=== PATIENT | female | born 2000 | race African-American/Black ===

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

== ENCOUNTER 2021-01-23 16:17 | Emergency (ER) | payer OTHER, SELFPAY ==
--- OUTSIDE RECORDS SUMMARY | 2021-01-23 16:19 | XMS REPORT | Continuity of Care Document ---
:2000 Author Organization [facility] t Address [address] [place] [address] Care Team Providers Name Role Phone Ann Arias Attending Clinician Problems This patient has no known problems. Allergies, Adverse Reactions, Alerts This patient has no known allergies or adverse reactions. Medications This patient has no known medications. Procedures This patient has no known procedures. Encounters Start End Encounter Admission Attending Care Care Encounter Source Date/Time Date/Time Type Type Clinicians Facility Department ID 2019-05-12 2019-05-12 Emergency [facility] Monge [id number] 15:30:32 18:09:00 [facility] [id number] [place] [id number] [place] [id number] Results This patient has no known results.
[2021-01-23 20:50] LABS: Urine Blood 3+ (Negative); Urine Glucose Negative (Negative); Urine Protein Trace (Negative); Urine Specific Gravity >=1.030 (1.005-1.030)
[2021-01-23] MEDS ORDERED: NITROFURAN MACRO 100 MG CAP PO ONE (21:30)
[2021-01-23 21:34] LABS: Absolute Lymphocytes (CBC) 2.6 K/uL (0.7-4.9); Basophils % 0.5 % (0-1.3); Hematocrit 34.1 % (36.0-45.0); Lymphocytes % 37.6 % (15.3-44.8); MPV 8.4 fL (7.6-11.3); RBC Red Blood Cell Count 4.15 M/uL (3.86-4.86)
[2021-01-23 21:49] LABS: Urine Specific Gravity/Preg >1.030 (1.005-1.030)
[2021-01-23 21:51] LABS: BUN Blood Urea Nitrogen 8 mg/dL (7-18); Bicarbonate 25 mmol/L (21-32); Glucose Level 89 mg/dL (74-106); HCG, Quantitative 870 mIU/mL (1-3); Potassium 3.6 mmol/L (3.5-5.1); Sodium Level 138 mmol/L (136-145)
--- NOTE | 2021-01-23 21:57 | ER ---
Nurse's Notes [facility] Name: Drea Lopez Age: 20 yrs Sex: Female : 2000 Arrival Date: 01/23/2021 Time: 16:21 Bed 23 Private MD: Diagnosis: Urinary tract infection, site not specified;Encounter for test, result positive Presentation: 01/23 16:32 Chief complaint: Patient states: Abd pain with nausea off/on for 2 weeks. Period is ll1 late 2 weeks, states she hasn't taken any tests yet. No fever or cough. G1, P1. Coronavirus screen: Client denies travel out of the [place] in the last 14 days. nausea, At this time, the client does not indicate any symptoms associated with coronavirus-19. Ebola Screen: Patient denies travel to an Ebola-affected area in the 21 days before illness onset. Initial Sepsis Screen: Does the patient meet any 2 criteria? No. Patient's initial sepsis screen is negative. Does the patient have a suspected source of infection? Yes: Acute abdominal pain. Risk Assessment: Do you want to hurt yourself or someone else? Patient reports no desire to harm self or others. Onset of symptoms was January 10, 2021. 16:32 Method Of Arrival: Ambulatory ll1 16:32 Acuity: MERLY 3 ll1 PCT: 21:26 2, Living 1, LMP 12/12/2020, Verified, EDC 09/18/2021, Gestational age bb from LMP: 6 weeks 1 day Historical: - Allergies: 16:33 No Known Allergies; ll1 - PMHx: 16:33 None; ll1 - PSHx: 16:33 None; ll1 - Immunization history:: Client reports having NOT received the Covid vaccine. Flu vaccine is not up to date. - Social history:: Smoking status: Patient denies any tobacco usage or history of. - Family history:: not pertinent. - Hospitalizations: : No recent hospitalization is reported. Screenin:00 Abuse screen: Denies threats or abuse. Nutritional screening: No deficits noted. bb Tuberculosis screening: No symptoms or risk factors identified. Fall Risk None identified. Assessment: 20:00 General: Appears in no apparent distress. Behavior is calm, cooperative. Pain: bb Complains of pain in abdomen. Neuro: Level of Consciousness is awake, alert, obeys commands, Oriented to person, place, time, situation. Cardiovascular: No deficits noted. Respiratory: Airway is patent Respiratory effort is even, unlabored, Respiratory pattern is regular. GI: Bowel sounds present X 4 quads. Abd is soft X 4 quads. Derm: Skin is dry, Skin is normal, Skin temperature is warm. Musculoskeletal: Circulation, motion, and sensation intact. 21:27 Reassessment: Patient and/or family updated on plan of care and expected duration. Pain bb level reassessed. Patient is alert, oriented x 3, equal unlabored respirations, skin warm/dry/pink. US tech at bedside. 22:17 Reassessment: Patient and/or family updated on plan of care and expected duration. Pain bb level reassessed. Patient is alert, oriented x 3, equal unlabored respirations, skin warm/dry/pink. pt verbalized understanding of and agrees to plan of care discharge instructions given pt ambulated with steady gait to exit. Vital Signs: 16:32 BP 133 / 79; Pulse 80; Resp 16; Temp 97.4; Pulse Ox 100% ; Weight 76.2 kg; Height 5 ft. ll1 2 in. (157.48 cm); Pain 4/10; 20:00 BP 108 / 75; Pulse 62; Resp 16; Pulse Ox 100% on R/A; oe 21:27 BP 138 / 56; Pulse 79; Resp 18 S; Pulse Ox 100% on R/A; Pain 4/10; bb 22:18 BP 117 / 82; Pulse 73; Resp 16 S; Temp 98.4(O); Pulse Ox 99% on R/A; bb 16:32 Body Mass Index 30.73 (76.20 kg, 157.48 cm) ll1 ED Course: 16:21 Patient arrived in ED. ds1 16:33 Triage completed. ll1 16:33 Arm band placed on. ll1 19:40 Adam Pritchard MD is Attending Physician. rn 20:00 Patient has correct armband on for positive identification. Call light in reach. bb 20:30 Urine collected: clean catch specimen, clear, florentin colored. jp3 21:16 Initial lab(s) drawn, by me, sent to lab. T\T\S collected, blood band applied to patient. jp3 Inserted saline lock: 20 gauge in left antecubital area, using aseptic technique. Blood collected. 21:44 Transvaginal Study Probe In Process Unspecified. EDMS 22:17 No provider procedures requiring assistance completed. IV discontinued, intact, bb bleeding controlled, No redness/swelling at site. Pressure dressing applied. Administered Medications: 21:12 Drug: Macrobid 100 mg Route: PO; bb 22:00 Follow up: Response: No adverse reaction bb Outcome: 21:56 Discharge ordered by . rn 22:17 Condition: stable bb 22:17 Discharge instructions given to patient, Instructed on discharge instructions, follow up and referral plans. Demonstrated understanding of instructions, follow-up care, Prescriptions given X 1. 22:18 Discharged to home ambulatory. bb 22:19 Patient left the ED. bb Addendum: 01/27/2021 07:29 Addendum: Culture Results: Positive urine culture. No further action required. Bacteria e b sensitive to prescribed antibiotic. Signatures: Dispatcher [employer] EDOR Era Suh ds1 Paty Elias RN RN Adam Schulte MD MD rn Espinosa, Orlando oe Botello, Elizabeth eb Pisarski, Jacob jp3 Soheila Givens RN RN ll1 Corrections: (The following items were deleted from the chart) 04 16:35 16:32 Chief complaint: Patient states: Abd pain with nausea off/on for 2 weeks. Period ll1 is late 2 weeks. No fever or cough. ll1 22:18 22:16 Reassessment: Patient is alert, oriented x 3, equal unlabored respirations, skin bb warm/dry/pink. pt verbalized understanding of and agrees to plan of care discharge instructions given pt assisted to exit via his wheelchair by family bb 22:17 Discharged to home via wheelchair, with family, bb bb :18 22:17 Discharge instructions given to patient, Instructed on discharge instructions, bb follow up and referral plans. Demonstrated understanding of instructions, follow-up care, bb
--- NOTE | 2021-01-23 21:57 | EDPHYS ---
Physician Documentation [facility] Name: Drea Lopez Age: 20 yrs Sex: Female : 2000 Arrival Date: 01/23/2021 Time: 16:21 Bed 23 Private MD: ED Physician Adam Pritchard HPI: 01/23 20:05 This 20 yrs old Black Female presents to ER via Ambulatory with complaints of Abdominal rn Pain. 20:05 The patient presents with abdominal pain in the lower abdomen. Onset: The rn symptoms/episode began/occurred 1 week(s) ago. The symptoms do not radiate. Associated signs and symptoms: Pertinent negatives: anorexia, blood in stools, constipation, diarrhea, dysuria, fever, shortness of breath, vaginal discharge, vomiting, vomiting blood. The symptoms are described as crampy. Modifying factors: The symptoms are alleviated by nothing, the symptoms are aggravated by nothing. Severity of pain: At its worst the pain was mild in the emergency department the pain is unchanged. The patient has not experienced similar symptoms in the past. The patient has not recently seen a physician. Reports 1 week of lower abd pain, no fever/vomiting/diarrhea, no trauma, reports LMP 15 days ago. NO vaginal discharge or bleeding. Instead of taking UPT at home, mother told her to come here. 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 Flu vaccine is not up to date. - Social history:: Smoking status: Patient denies any tobacco usage or history of. - Family history:: not pertinent. - Hospitalizations: : No recent hospitalization is reported. ROS: 20:05 Constitutional: Negative for fever, chills, and weight loss, Eyes: Negative for injury, rn pain, redness, and discharge, Neck: Negative for injury, pain, and swelling, Cardiovascular: Negative for chest pain, palpitations, and edema, Respiratory: Negative for shortness of breath, cough, wheezing, and pleuritic chest pain, Abdomen/GI: + lower abd pain Back: Negative for injury and pain, : Negative for injury, bleeding, discharge, and swelling, MS/Extremity: Negative for injury and deformity, Skin: Negative for injury, rash, and discoloration, Neuro: Negative for headache, weakness, numbness, tingling, and seizure. Exam: 20:05 Constitutional: This is a well developed, well nourished patient who is awake, alert, rn and in no acute distress. Texting on phone and laying comfortably on right side. Head/Face: Normocephalic, atraumatic. Eyes: Pupils equal round and reactive to light, extra-ocular motions intact. Cardiovascular: Regular rate and rhythm. No pulse deficits. Respiratory: No increased work of breathing, no retractions or nasal flaring. Abdomen/GI: soft, non-tender Skin: Warm, dry MS/ Extremity: Pulses equal, no cyanosis. Neuro: Awake and alert, GCS 15 Vital Signs: 16:32 BP 133 / 79; Pulse 80; Resp 16; Temp 97.4; Pulse Ox 100% ; Weight 76.2 kg; Height 5 ft. ll1 2 in. (157.48 cm); Pain 4/10; 20:00 BP 108 / 75; Pulse 62; Resp 16; Pulse Ox 100% on R/A; oe 21:27 BP 138 / 56; Pulse 79; Resp 18 S; Pulse Ox 100% on R/A; Pain 4/10; bb 22:18 BP 117 / 82; Pulse 73; Resp 16 S; Temp 98.4(O); Pulse Ox 99% on R/A; bb 16:32 Body Mass Index 30.73 (76.20 kg, 157.48 cm) ll1 MDM: 19:40 Patient medically screened. rn 21:54 Differential diagnosis: Ectopic , , UTI. Data reviewed: vital signs, rn nurses notes, lab test result(s), radiologic studies, ultrasound, and as a result, I will discharge patient. Counseling: I had a detailed discussion with the patient and/or guardian regarding: the historical points, exam findings, and any diagnostic results supporting the discharge/admit diagnosis, lab results, radiology results, the need for outpatient follow up, to return to the emergency department if symptoms worsen or persist or if there are any questions or concerns that arise at home. Response to treatment: the patient's symptoms have mildly improved after treatment, and as a result, I will discharge patient. Special discussion: I discussed with the patient/guardian in detail that at this point there is no indication for admission to the hospital. It is understood, however, that if the symptoms persist or worsen the patient needs to return immediately for re-evaluation. Based on the history and exam findings, there is no indication for further emergent testing or inpatient evaluation. I discussed with the patient/guardian the need to see the OB Gyne specialist for further evaluation of the symptoms. ED course: U/S shows intrauterine gestational sac, no abnormalities, but very early, no sign of ectopic, + UTI, will dc home given no vaginal bleeding or complaints to suggest . . 01/23 20:50 Order name: Quantitative Hcg; Complete Time: 21:54 rn 01/23 20:50 Order name: Abo/rh Typing 01/23 20:50 Order name: Basic Metabolic Panel; Complete Time: 21:54 rn 01/23 20:50 Order name: CBC with Diff; Complete Time: 21:54 rn 01/23 20:50 Order name: Urine Culture 01/23 20:50 Order name: Urine Dipstick-Ancillary EDMS 01/23 16:50 Order name: Urine Dipstick-Ancillary (obtain specimen); Complete Time: 21:13 kb 01/23 16:50 Order name: Urine Test (obtain specimen); Complete Time: 21:13 kb 01/23 20:50 Order name: IV Saline Lock; Complete Time: 21:13 rn 01/23 20:50 Order name: Labs collected and sent; Complete Time: 21:13 rn 01/23 20:53 Order name: Urine --Ancillary (enter results); Complete Time: 21:54 bb 01/23 21:43 Order name: Transvaginal Study Probe EDMS Administered Medications: 21:12 Drug: Macrobid 100 mg Route: PO; bb 22:00 Follow up: Response: No adverse reaction bb Disposition: 01/23/21 21:56 Discharged to Home. Impression: Urinary tract infection, site not specified, Encounter for test, result positive. - Condition is Stable. - Discharge Instructions: Urinary Tract Infection, Adult, and Urinary Tract Infection. - Prescriptions for Macrobid 100 mg Oral Capsule - take 1 capsule by ORAL route every 12 hours for 7 days; 14 capsule. - Medication Reconciliation Form, Thank You Letter, Antibiotic Education, Prescription Opioid Use form. - Follow up: Private Physician; When: As needed; Reason: Recheck today's complaints, Re-evaluation by your physician. - Problem is new. - Symptoms have improved. Signatures: Dispatcher [employer] [facility] Dalia Strange, PARCEL CARRIER-C PARCEL CARRIER-Paty Serrano RN RN Adam Schulte MD MD rn Lewis, Lynsay, RN RN ll1 Corrections: (The following items were deleted from the chart) 21:43 20:51 OB Limited+US.RAD.BRZ ordered. [facility] 22:19 21:56 01/23/2021 21:56 Discharged to Home. Impression: Urinary tract infection, site bb not specified; Encounter for test, result positive. Condition is Stable. Forms are Medication Reconciliation Form, Thank You Letter, Antibiotic Education, Prescription Opioid Use. Follow up: Private Physician; When: As needed; Reason: Recheck today's complaints, Re-evaluation by your physician. Problem is new. Symptoms have improved. rn
[2021-01-23 22:56] VITALS: BP 117/82; TEMP 98.4; O2SAT 99
--- NOTE | 2021-01-24 09:32 | RAD REPORT ---
EXAM DESCRIPTION: US - Transvaginal Study Probe - 01/23/2021 9:44 pm CLINICAL HISTORY: ABD CRAMPING, Pelvic pain. COMPARISON: No comparisons FINDINGS: A small cystic areas seen in the endometrium measuring 4 mm in mean sac diameter. Estimate d gestational age is 5 weeks 1 day. No embryonic components yet identified at this early stage. Left ovary was obscured by bowel gas. Right ovary demonstrates normal blood flow is normal in appeara nce. Both adnexa are unremarkable. IMPRESSION: Findings likely indicate early IUP.Recommend correlation with serial HCG levels and foll ow-up pelvic sonography in 10-12 days.
== END 2021-01-23 22:19 | disposition home or self-care (01) ==
LOC: ER 16:17
DX: N39.0 Urinary tract infection, site not specified (principal)
CPT/HCPCS: 36415; 76830; 80048; 81003; 81025; 84702; 85025; 86900; 86901; 87077; 87086; 87088; 87186; 99284

== ENCOUNTER 2021-01-24 09:39 | Emergency (ER) | payer SELFPAY ==
--- OUTSIDE RECORDS SUMMARY | 2021-01-24 09:42 | XMS REPORT | Continuity of Care Document ---
:2000 Author Organization [facility] t Address [address] [place] [address] Care Team Providers Name Role Phone Ann [...] 2019-05-12 2019-05-12 Emergency NAPOLEON Monge [id number] 15:30:32 18:09:00 [facility] [id number] [place] [id number] [place] [phone] [id number] Results This patient has no known results.
--- NOTE | 2021-01-24 11:01 | ER ---
Nurse's Notes [facility] Name: Drea Lopez Age: 20 yrs Sex: Female : 2000 Arrival Date: 01/24/2021 Time: 09:42 Bed 23 Private MD: Diagnosis: Threatened ;Less than 8 weeks gestation of Presentation: 01/24 10:04 Chief complaint: Patient states: "Yesterday I was here and found out I was and ss today I started having vaginal bleeding.". Coronavirus screen: Client denies travel out of the [place] in the last 14 days. Ebola Screen: Patient denies exposure to infectious person. Patient denies travel to an Ebola-affected area in the 21 days before illness onset. Initial Sepsis Screen: Does the patient meet any 2 criteria? No. Patient's initial sepsis screen is negative. Does the patient have a suspected source of infection? No. Patient's initial sepsis screen is negative. Risk Assessment: Do you want to hurt yourself or someone else? Patient reports no desire to harm self or others. Onset of symptoms was January 24, 2021. 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 - Social history:: Smoking status: Patient denies any tobacco usage or history of. Screenin:04 Abuse screen: Denies threats or abuse. Denies injuries from another. Nutritional ss screening: No deficits noted. Tuberculosis screening: Never had TB. Fall Risk None identified. Assessment: 10:04 General: Appears in no apparent distress. comfortable, Behavior is calm, cooperative, ss Denies fever, feeling ill, fatigue, chills. Pain: Complains of pain in suprapubic area Pain currently is 6 out of 10 on a pain scale. Quality of pain is described as crampy. Neuro: Level of Consciousness is awake, alert, obeys commands, Oriented to person, place, time, Appropriate for age Gait is steady, Speech is normal. Cardiovascular: Capillary refill < 3 seconds is brisk in bilateral fingers. Respiratory: Airway is patent Respiratory effort is even, unlabored, Respiratory pattern is regular, symmetrical. GI: Patient currently denies diarrhea, nausea, vomiting. : Reports vaginal bleeding that is moderate flow, since this morning. Derm: Skin is intact, is healthy with good turgor, Skin is pink, warm \\T\\ dry. normal. Vital Signs: 10:04 BP 116 / 78; Pulse 83; Resp 14; Temp 99.1(TE); Pulse Ox 99% on R/A; Weight 76.2 kg; ss Height 5 ft. 2 in. (157.48 cm); Pain 6/10; 10:04 Body Mass Index 30.73 (76.20 kg, 157.48 cm) ss ED Course: 09:42 Patient arrived in ED. ds1 10:04 Patient has correct armband on for positive identification. Bed in low position. Call ss light in reach. 10:06 Triage completed. ss 10:06 Arm band placed on right wrist. ss 10:15 Dalia Strange FNP-C is PHCP. kb 10:15 Juan Francisco Hernandez MD is Attending Physician. kb 10:43 US Transvaginal Ob In Process Unspecified. EDMS 10:45 Ultrasound completed. Patient tolerated well. aa4 11:11 Henrietta Torres, TOAN is Primary Nurse. ss 11:11 No provider procedures requiring assistance completed. Patient did not have IV access ss during this emergency room visit. Administered Medications: No medications were administered Outcome: 11:00 Discharge ordered by MD. kb 11:11 Discharged to home ambulatory. ss 11:11 Condition: good 11:11 Discharge instructions given to patient, Instructed on discharge instructions, follow up and referral plans. medication usage, Demonstrated understanding of instructions, follow-up care, medications. 11:14 Patient left the ED. ss Signatures: Dispatcher [employer] EDMS Dalia Strange FNP-C FNP-Ckb [place], Demi ds1 Gladys Donohue aa4 Henrietta Torres, TOAN RN ss
--- NOTE | 2021-01-24 11:01 | EDPHYS ---
Physician Documentation [facility] Name: Drea Lopez Age: 20 yrs Sex: Female : 2000 Arrival Date: 01/24/2021 Time: 09:42 Bed 23 Private MD: ED Physician Juan Francisco Hernandez HPI: 01/24 16:00 This 20 yrs old Black Female presents to ER via Ambulatory with complaints of Vaginal kb Bleeding, + Preg <12wks. 16:00 The patient presents to the emergency department with abdominal pain, described as kb crampy, vaginal bleeding, that is light, with no clots. course: care: none, Leakage of Fluid: none appreciated, Ultrasound: the patient has not had an ultrasound. Previous pregnancies: in previous pregnancies patient has had. Associated signs and symptoms: Pertinent positives: vaginal bleeding. The patient has not experienced similar symptoms in the past. The patient has not recently seen a physician. Pt reports she was seen here last night and found out she was . Had an episode of light vaginal bleeding while at work today. 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 - Social history:: Smoking status: Patient denies any tobacco usage or history of. ROS: 15:59 Constitutional: Negative for fever, chills, and weight loss, Cardiovascular: Negative kb for chest pain, palpitations, and edema, Respiratory: Negative for shortness of breath, cough, wheezing, and pleuritic chest pain, MS/Extremity: Negative for injury and deformity, Skin: Negative for injury, rash, and discoloration, Neuro: Negative for headache, weakness, numbness, tingling, and seizure. 15:59 Abdomen/GI: Positive for abdominal cramps. 15:59 : Positive for vaginal bleeding. Exam: 15:59 Constitutional: This is a well developed, well nourished patient who is awake, alert, kb and in no acute distress. Head/Face: Normocephalic, atraumatic. Respiratory: Respirations even and unlabored. No increased work of breathing, no retractions or nasal flaring. Abdomen/GI: Soft, non-tender. No distention MS/ Extremity: Pulses equal, no cyanosis. Neurovascular intact. Full, normal range of motion. Neuro: Awake and alert, GCS 15, oriented to person, place, time, and situation. Moves all extremities. Normal gait. Vital Signs: 10:04 BP 116 / 78; Pulse 83; Resp 14; Temp 99.1(TE); Pulse Ox 99% on R/A; Weight 76.2 kg; ss Height 5 ft. 2 in. (157.48 cm); Pain 6/10; 10:04 Body Mass Index 30.73 (76.20 kg, 157.48 cm) ss MDM: 10:50 Patient medically screened. kb 15:58 Data reviewed: vital signs, nurses notes. Data reviewed: old medical records, labs from kb ER visit yesterday reviewed. Data interpreted: Pulse oximetry: on room air is 99 %. Interpretation: normal. Counseling: I had a detailed discussion with the patient and/or guardian regarding: the historical points, exam findings, and any diagnostic results supporting the discharge/admit diagnosis, radiology results, the need for outpatient follow up, an OB/Gyne specialist, to return to the emergency department if symptoms worsen or persist or if there are any questions or concerns that arise at home. 01/24 10:15 Order name: Transvaginal Ob devon Administered Medications: No medications were administered Disposition: 01/25 06:53 Co-signature as Attending Physician, Juan Francisco Hernandez MD I agree with the assessment and kdr plan of care. Disposition: 01/24/21 11:00 Discharged to Home. Impression: Threatened , Less than 8 weeks gestation of . - Condition is Stable. - Discharge Instructions: First Trimester of , [id number], Threatened Miscarriage, [id number], Vaginal Bleeding During , First Trimester, [id number]. - Medication Reconciliation Form, Thank You Letter, Antibiotic Education, Prescription Opioid Use, Work release form form. - Follow up: Private Physician; When: 2 - 3 days; Reason: Recheck today's complaints, Continuance of care, Re-evaluation by your physician. Follow up: Emergency Department; When: As needed; Reason: Worsening of condition. Signatures: Dispatcher [employer] Rojelio Casarezistin, CUBE CUTTER-C CUBE CUTTER-Ckb Juan Francisco Hernandez MD MD kdr Henrietta Torres RN RN ss Corrections: (The following items were deleted from the chart) 01/24 11:14 11:00 01/24/2021 11:00 Discharged to Home. Impression: Threatened ; Less than 8 ss weeks gestation of . Condition is Stable. Forms are Medication Reconciliation Form, Thank You Letter, Antibiotic Education, Prescription Opioid Use. Follow up: Private Physician; When: 2 - 3 days; Reason: Recheck today's complaints, Continuance of care, Re-evaluation by your physician. Follow up: Emergency Department; When: As needed; Reason: Worsening of condition. kb
--- NOTE | 2021-01-24 11:16 | RAD REPORT ---
EXAM DESCRIPTION: US - Transvaginal OB - 01/24/2021 10:48 am CLINICAL HISTORY: VAGINAL BLEEDING Pain and bleeding COMPARISON: Transvaginal Study Probe dated 01/23/2021 FINDINGS: A small cystic area is present in the endometrial canal measuring 4 mm, correlating with g estational age of 5 weeks 0 days. No embryonic components are yet visible. The maternal adnexa and ovaries are within normal limits. Normal Doppler blood flow was demonstrated to both ovaries. IMPRESSION: Small cystic area in the endometrium is seen. This likely represents an early gestationa l sac with estimated gestational age of 5 weeks 0 days. Recommend follow-up serial HCG levels and fol low-up ultrasound in 12-14 days.
[2021-01-24 11:22] VITALS: BP 116/78; TEMP 99.1; O2SAT 99
== END 2021-01-24 11:14 | disposition home or self-care (01) ==
LOC: ER 09:39
DX: O20.0 Threatened abortion (principal); Z3A.01 Less than 8 weeks gestation of pregnancy
CPT/HCPCS: 76817; 99283

== ENCOUNTER 2021-06-13 16:59 | Emergency (ER) | payer SELFPAY ==
--- OUTSIDE RECORDS SUMMARY | 2021-06-13 17:02 | XMS REPORT | Continuity of Care Document ---
:2000 Author Organization [facility] t Address [address] [place] [address] Care Team Providers Name Role Phone Jg Bañuelos Attending Clinician Unavailable José Luis Tejada Attending Clinician Unavailable Saleem PEGUERO, F Attending Clinician Physician, Primary or Family Admitting Clinician Unavailabl e Payers Payer Name Policy Type Policy Number Effective Date Expiration Date S ource Problems This patient has no known problems. Allergies, Adverse Reactions, Alerts Allergy Allergy Status Severity Reaction(s) Onset Inactive Treating Comm ents Source Name Type Date Date Clinician No Known DA Active U [facility] Allergie 04-29 [facility] 00:00: d 00 [facility] Medications This patient has no known medications. Procedures This patient has no known procedures. Encounters Start End Encounter Admission Attending Care Care Encounter Source Date/Time Date/Time Type Type Clinicians Facility Department ID 2021-05-21 2021-05-21 Emergency EM Linda Bañuelos [id number] [facility] 00:29:00 02:26:00 [id number] [facility] 2021-04-29 2021-04-29 Emergency EM CHANDNI Tejada LA543 [id number] [facility] 22:18:00 23:50:00 aNdiya [id number] [facility] 2019-05-12 2019-05-12 Emergency Saleem RISEPIDEH [id number] 15:30:32 18:09:00 [facility] [id number] Rebecca [id number] [place] [id number] Results Test Description Test Time Test Comments Results Result Comments Source COMPREHENSIVE METABOLIC PANEL 2021-05-21 02:10:00 Test Item Value Reference Range Interpretation Comme nts SODIUM (test code = NA) 140 MMOL/L 135-147 N POTASSIUM (test code = K) 3.7 MMOL/L 3.6-5.2 N CHLORIDE (test code = CL) 104 MMOL/L 98-108 N CARBON DIOXIDE (test code = 29 mmol/L 21-32 N CO2) GLUCOSE (test code = GLU) 92 mg/dL 70-110 N BLOOD UREA NITROGEN (test code 9 MG/DL 6-21 N = BUN) GLOMERULAR FILTRATION RATE 117 >60 T he estimated glomerular (test code = GFR) filtration rate is computed usingpatient ra ce, age (>18), sex, and serum creatinine. If anyof the neede d data elements are missing the Laboratory cannot compute an estimation of the glomerular filtration rate. CREATININE (test code = CREAT) 0.8 mg/dL 0.6-1.3 N TOTAL PROTEIN (test code = 7.7 g/dL 6.0-8.2 N PROT) ALBUMIN (test code = ALB) 3.6 G/DL 3.7-5.5 L CALCIUM (test code = CA) 8.4 mg/dL 8.7-10.5 L BILIRUBIN TOTAL (test code = 0.20 mg/dL 0.0-1.0 N BILT) SGOT/AST (test code = AST) 13 UNITS/L 10-37 N SGPT/ALT (test code = ALT) 16 UNITS/L 12-78 N ALKALINE PHOSPHATASE (test code 51 UNITS/L 46-116 N = ALKP) [id number] 02:10:00 Test Item Value Reference Range Interpretation Comments LIPASE (test code = LIP) 122 UNITS/L 73-393 N CBC W/AUTO [id number] 01:47:00 Test Item Value Reference Range Interpretation Comments WHITE BLOOD CELL (test code = 5.2 x10 3/uL 5.0-12.0 N WBC) RED BLOOD CELL (test code = 3.80 x10 6/uL 4.20-5.40 L RBC) HEMOGLOBIN (test code = HGB) 9.8 g/dL 12.0-16.0 L HEMATOCRIT (test code = HCT) 32.1 % 36.0-46.0 L MEAN CELL VOLUME (test code = 85 fL 81-99 N MCV) MEAN CELL HGB (test code = MCH) 25.8 pg 27-31 L MEAN CELL HGB CONCENTRATION 30.5 g/dL 33-37 L (test code = MCHC) RED CELL DISTRIBUTION WIDTH 13.9 % 11.5-15.5 N (test code = RDW) PLATELET COUNT (test code = 326 x10 3/uL 130-400 N PLT) MEAN PLATELET VOLUME (test code 10.0 fL 9.4-16.4 N = MPV) NEUTROPHIL % (test code = NT%) 44.2 % 43-65 N IMMATURE GRANULOCYTE % (test 0.0 % 0.0-2.0 N code = IG%) LYMPHOCYTE % (test code = LY%) 46.8 % 20.5-45.5 H MONOCYTE % (test code = MO%) 6.5 % 5.5-11.7 N EOSINOPHIL % (test code = EO%) 1.9 % 0.9-2.9 N BASOPHIL % (test code = BA%) 0.6 % 0.2-1.0 N NEUTROPHIL # (test code = NT#) 2.32 x10 3/uL 2.2-4.8 N IMMATURE GRANULOCYTE # (test 0.00 x10 3/uL 0-0.03 N code = IG#) LYMPHOCYTE # (test code = LY#) 2.45 x10 3/uL 1.3-2.9 N MONOCYTE # (test code = MO#) 0.34 x10 3/uL 0.3-0.8 N EOSINOPHIL # (test code = EO#) 0.10 x10 3/uL 0.0-0.2 N BASOPHIL # (test code = BA#) 0.03 x10 3/uL 0.0-0.1 N URINALYSIS [id number] 01:02:00 Test Item Value Reference Range Interpretation Comments UA COLOR (test code YELLOW YELLOW = COLU) UA APPEARANCE (test CLEAR CLEAR code = APPU) UA GLUCOSE DIPSTICK NEGATIVE MG/DL NEGATIVE (test code = DGLUU) UA BILIRUBIN NEGATIVE NEGATIVE DIPSTICK (test code = BILU) UA KETONE DIPSTICK NEGATIVE MG/DL NEGATIVE (test code = KETU) UA SPECIFIC GRAVITY 1.020 1.000-1.030 (test code = SGU) UA BLOOD DIPSTICK 1+ NEGATIVE A (test code = SERA) UA PH DIPSTICK (test 7.0 5.0-8.0 code = MAGNUS) UA PROTEIN DIPSTICK NEGATIVE MG/DL NEGATIVE (test code = PROU) UA UROBILINOGEN 2.0 EU/dL See_Comment A [Automated DIPSTICK (test code message] The system = [employer]) which generated this result transmitted reference range : <=1.0. The reference range was not used to interpret this result as normal/abnormal . UA NITRITE DIPSTICK NEGATIVE NEGATIVE (test code = ANA) UA LEUKOCYTE NEGATIVE NEGATIVE ESTERASE DIPSTICK (test code = LEUU) UA WBC (test code = 0-3 /HPF 0-3 WBCU) UA RBC (test code = 3-5 /HPF 0-3 A RBCU) UA EPITHELIAL CELLS FEW /LPF NONE-FEW (test code = EPIU) UA BACTERIA (test 1+ /HPF NEGATIVE A code = BACU) UA SPERM (test code Present NONE SEEN A = SPERMU) UR HCG [id number] 01:02:00 Test Item Value Reference Range Interpretation Comments UR HCG QUAL (test code NEGATIVE NEGATIVE [id number] 12-09-2022 = HCGQLU) URINALYSIS [id number] 00:57:00 Test Item Value Reference Range Interpretation Comments UA COLOR (test code YELLOW YELLOW = COLU) UA APPEARANCE (test CLEAR CLEAR code = APPU) UA GLUCOSE DIPSTICK NEGATIVE MG/DL NEGATIVE (test code = DGLUU) UA BILIRUBIN NEGATIVE NEGATIVE DIPSTICK (test code = BILU) UA KETONE DIPSTICK NEGATIVE MG/DL NEGATIVE (test code = KETU) UA SPECIFIC GRAVITY 1.020 1.000-1.030 (test code = SGU) UA BLOOD DIPSTICK 1+ NEGATIVE A (test code = SERA) UA PH DIPSTICK (test 7.0 5.0-8.0 code = MAGNUS) UA PROTEIN DIPSTICK NEGATIVE MG/DL NEGATIVE (test code = PROU) UA UROBILINOGEN 2.0 EU/dL See_Comment A [Automated DIPSTICK (test code message] The system = [employer]) which generated this result transmitted reference range : <=1.0. The reference range was not used to interpret this result as normal/abnormal . UA NITRITE DIPSTICK NEGATIVE NEGATIVE (test code = ANA) UA LEUKOCYTE NEGATIVE NEGATIVE ESTERASE DIPSTICK (test code = LEUU) UA WBC (test code = /HPF 0-3 WBCU) UA RBC (test code = /HPF 0-3 RBCU) UA EPITHELIAL CELLS /LPF NONE-FEW (test code = EPIU) UA BACTERIA (test /HPF NEGATIVE code = BACU) UR HCG [id number] 00:57:00 Test Item Value Reference Range Interpretation Comments UR HCG QUAL (test code NEGATIVE NEGATIVE [id number] 12-09-2022 = HCGQLU) URINALYSIS [id number] 00:55:00 Test Item Value Reference Range Interpretation Comments UA COLOR (test code YELLOW YELLOW = COLU) UA APPEARANCE (test CLEAR CLEAR code = APPU) UA GLUCOSE DIPSTICK NEGATIVE MG/DL NEGATIVE (test code = DGLUU) UA BILIRUBIN NEGATIVE NEGATIVE DIPSTICK (test code = BILU) UA KETONE DIPSTICK NEGATIVE MG/DL NEGATIVE (test code = KETU) UA SPECIFIC GRAVITY 1.020 1.000-1.030 (test code = SGU) UA BLOOD DIPSTICK 1+ NEGATIVE A (test code = SERA) UA PH DIPSTICK (test 7.0 5.0-8.0 code = MAGNUS) UA PROTEIN DIPSTICK NEGATIVE MG/DL NEGATIVE (test code = PROU) UA UROBILINOGEN 2.0 EU/dL See_Comment A [Automated DIPSTICK (test code message] The system = [employer]) which generated this result transmitted reference range : <=1.0. The reference range was not used to interpret this result as normal/abnormal . UA NITRITE DIPSTICK NEGATIVE NEGATIVE (test code = ANA) UA LEUKOCYTE NEGATIVE NEGATIVE ESTERASE DIPSTICK (test code = LEUU) UA WBC (test code = /HPF 0-3 WBCU) UA RBC (test code = /HPF 0-3 RBCU) UA EPITHELIAL CELLS /LPF NONE-FEW (test code = EPIU) UA BACTERIA (test /HPF NEGATIVE code = BACU) UR HCG [id number] 00:55:00 Test Item Value Reference Range Interpretation Comments UR HCG QUAL (test code = HCGQLU) NEGATIVE UA RFLX MICR CULT IF [id number] 23:56:00 Test Item Value Reference Range Interpretation Comments UA COLOR (test code = YELLOW discript YEL/STRAW COLU) UA APPEARANCE (test code CLOUDY discript CLEAR A = APPU) UA GLUCOSE DIPSTICK (test NEGATIVE mg/dL NEG code = DGLUU) UA BILIRUBIN DIPSTICK NEGATIVE mg/dL NEG (test code = BILU) UA KETONE DIPSTICK (test NEGATIVE mg/dL NEG code = KETU) UA SPECIFIC GRAVITY (test 1.025 SG 1.005-1.030 code = SGU) UA BLOOD DIPSTICK (test NEGATIVE mg/DL NEG code = SERA) UA PH DIPSTICK (test code 6.5 pH UNITS 5.0-7.0 = MAGNUS) UA PROTEIN DIPSTICK (test NEGATIVE mg/dL NEG code = PROU) UA UROBILINIOGEN DIPSTICK 0.2 mg/dL <2.0 (test code = URO) UA NITRITE DIPSTICK (test POSITIVE SCREEN NEG A code = ANA) UA LEUKOCYTE ESTERASE NEGATIVE Leuk/mcL NEGATIVE DIPSTICK (test code = LEUU) UA WBC (test code = WBCU) 1-3 #WBC/HPF 0-3 UA RBC (test code = RBCU) 0-1 #RBC/HPF 0-3 UA BACTERIA (test code = 4+ /HPF NONE-TRACE A BACU) UA SQUAMOUS CELLS (test TRACE /HPF NONE code = SQU) UA CULTURE NEEDED? (test NO, WBC<10 Criteria Culture CHK code = UACULT) Indication for culture: Dysuria/FrequencyUR HCG [id number] 23:56:00 Test Item Value Reference Range Interpretation Comments UR HCG QUAL (test code = HCGQLU) NEGATIVE NEGATIVE Indication for culture: Dysuria/FrequencyUA RFLX MICR CULT IF INDICATED 2021-04-29 23:42:00 Test Item Value Reference Range Interpretation Comments UA COLOR (test code = COLU) YELLOW discript YEL/STRAW UA APPEARANCE (test code = CLOUDY discript CLEAR A APPU) UA GLUCOSE DIPSTICK (test NEGATIVE mg/dL NEG code = DGLUU) UA BILIRUBIN DIPSTICK (test NEGATIVE mg/dL NEG code = BILU) UA KETONE DIPSTICK (test NEGATIVE mg/dL NEG code = KETU) UA SPECIFIC GRAVITY (test 1.025 SG 1.005-1.030 code = SGU) UA BLOOD DIPSTICK (test NEGATIVE mg/DL NEG code = SERA) UA PH DIPSTICK (test code = 6.5 pH UNITS 5.0-7.0 MAGNUS) UA PROTEIN DIPSTICK (test NEGATIVE mg/dL NEG code = PROU) UA UROBILINIOGEN DIPSTICK 0.2 mg/dL <2.0 (test code = URO) UA NITRITE DIPSTICK (test POSITIVE SCREEN NEG A code = ANA) UA LEUKOCYTE ESTERASE NEGATIVE Leuk/mcL NEGATIVE DIPSTICK (test code = LEUU) UA CULTURE NEEDED? (test Criteria Culture CHK code = UACULT) Indication for culture: Dysuria/FrequencyUR HCG [id number] 23:42:00 Test Item Value Reference Range Interpretation Comments UR HCG QUAL (test code = HCGQLU) NEGATIVE NEGATIVE Indication for culture: Dysuria/FrequencyUA RFLX MICR CULT IF INDICATED 2021-04-29 23:41:00 Test Item Value Reference Range Interpretation Comments UA COLOR (test code = COLU) YELLOW discript YEL/STRAW UA APPEARANCE (test code = CLOUDY discript CLEAR A APPU) UA GLUCOSE DIPSTICK (test NEGATIVE mg/dL NEG code = DGLUU) UA BILIRUBIN DIPSTICK (test NEGATIVE mg/dL NEG code = BILU) UA KETONE DIPSTICK (test NEGATIVE mg/dL NEG code = KETU) UA SPECIFIC GRAVITY (test 1.025 SG 1.005-1.030 code = SGU) UA BLOOD DIPSTICK (test NEGATIVE mg/DL NEG code = SERA) UA PH DIPSTICK (test code = 6.5 pH UNITS 5.0-7.0 MAGNUS) UA PROTEIN DIPSTICK (test NEGATIVE mg/dL NEG code = PROU) UA UROBILINIOGEN DIPSTICK 0.2 mg/dL <2.0 (test code = URO) UA NITRITE DIPSTICK (test POSITIVE SCREEN NEG A code = ANA) UA LEUKOCYTE ESTERASE NEGATIVE Leuk/mcL NEGATIVE DIPSTICK (test code = LEUU) UA CULTURE NEEDED? (test Criteria Culture CHK code = UACULT) Indication for culture: Dysuria/FrequencyUR HCG [id number] 23:41:00 Test Item Value Reference Range Interpretation Comments UR HCG QUAL (test code = HCGQLU) NEGATIVE Indication for culture: Dysuria/Frequency
--- NOTE | 2021-06-13 20:47 | ER ---
Nurse's Notes [facility] Name: Drea Lopez Age: 20 yrs Sex: Female : 2000 Arrival Date: 06/13/2021 Time: 17:01 Bed Waiting Private MD: Diagnosis: Presentation: 06/13 17:47 Chief complaint: Patient states: Light headness, dizzym headache, fever, body aches x kg 2. Coronavirus screen: Vaccine status: Patient reports receiving the 2nd dose of the covid vaccine. Date March 2021 Patient reports receiving the 1st dose of the Covid vaccine. Date March 2021. Ebola Screen: Patient negative for fever greater than or equal to 101.5 degrees Fahrenheit, and additional compatible Ebola Virus Disease symptoms Patient denies exposure to infectious person. Patient denies travel to an Ebola-affected area in the 21 days before illness onset. 17:47 Method Of Arrival: Ambulatory kg 17:51 Initial Sepsis Screen: Does the patient meet any 2 criteria? No. Patient's initial kg sepsis screen is negative. Does the patient have a suspected source of infection? No. Patient's initial sepsis screen is negative. Risk Assessment: Do you want to hurt yourself or someone else? Patient reports no desire to harm self or others. Onset of symptoms was June 11, 2021. 17:51 Acuity: MERLY 4 kg Triage Assessment: 17:51 General: Appears in no apparent distress. Behavior is calm, cooperative, appropriate kg for age, quiet. Pain: Complains of pain in Generalized. Historical: - Allergies: 17:51 No Known Allergies; kg - Home Meds: 17:51 None [Active]; kg - PMHx: 17:51 None; kg - PSHx: 17:51 None; kg - Immunization history:: Adult Immunizations up to date, Client reports receiving the 2nd dose of the Covid vaccine, Date received: March 2021 Client reports receiving the 1st dose of the Covid vaccine, March 2021. - Social history:: Smoking status: Patient denies any tobacco usage or history of. Screenin:46 Abuse screen: Denies threats or abuse. Denies injuries from another. Nutritional kg screening: No deficits noted. Tuberculosis screening: No symptoms or risk factors identified. Fall Risk None identified. Vital Signs: 17:47 BP 108 / 73; Pulse 106; Resp 20; Temp 98.5; Pulse Ox 100% on R/A; Weight 81.65 kg (R); kg Height 5 ft. 2 in. (157.48 cm); Pain 10/10; 20:44 BP 128 / 87; Pulse 89; Resp 18; Temp 98.3(TE); Pulse Ox 100% ; kg 17:47 Body Mass Index 32.92 (81.65 kg, 157.48 cm) kg ED Course: 17:01 Patient arrived in ED. rg4 17:51 Triage completed. kg 20:46 Patient has correct armband on for positive identification. kg Administered Medications: No medications were administered Outcome: 20:47 Patient left the ED. kg Signatures: Aliyah Vargas rg4 Tanika Meng, RN RN kg
[2021-06-13 20:52] VITALS: O2SAT 100
[2021-06-13 20:53] VITALS: BP 128/87; TEMP 98.3
== END 2021-06-13 20:47 | disposition left against medical advice (07) ==
LOC: ER 16:59
DX: Z53.21 Procedure and treatment not carried out due to patient leaving prior to being seen by health care provider (principal); Z20.822 Contact with and (suspected) exposure to COVID-19
CPT/HCPCS: 99281; U0003

== ENCOUNTER 2022-04-22 02:34 | Emergency (ER) | payer OTHER, SELFPAY ==
--- NOTE | 2022-04-22 04:28 | ER ---
Nurse's Notes [facility] Name: Drea Lopez Age: 21 yrs Sex: Female : 2000 Arrival Date: 04/22/2022 Time: 02:36 Bed 10 Private MD: Diagnosis: Fall on same level, unspecified;30 weeks gestation of Presentation: 04/22 02:50 Chief complaint: Patient states: I was showering and I slipped in the tub and fell to kd3 my right side. I landed on my right arm and it kind of hurts now. it feels achy and my side is hurting now too. i am 8 and a half months . Coronavirus screen: Vaccine status: Patient reports receiving the 1st dose of the Covid vaccine. Ebola Screen: No symptoms or risks identified at this time. Initial Sepsis Screen: Does the patient meet any 2 criteria? No. Patient's initial sepsis screen is negative. Does the patient have a suspected source of infection? No. Patient's initial sepsis screen is negative. Risk Assessment: Do you want to hurt yourself or someone else? Patient reports no desire to harm self or others. Onset of symptoms was April 22, 2022. 02:50 Method Of Arrival: Ambulatory kd3 02:50 Acuity: MERLY 3 kd3 Triage Assessment: 02:52 General: Appears in no apparent distress. Behavior is calm, cooperative. Pain: kd3 Complains of pain in right arm. Neuro: Level of Consciousness is awake, alert, obeys commands, Oriented to person, place, time, situation. 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 - Social history:: Smoking status: unknown. Screenin:53 Abuse screen: Denies threats or abuse. Denies injuries from another. Nutritional kd3 screening: No deficits noted. Tuberculosis screening: No symptoms or risk factors identified. Fall Risk Fall in past 12 months (25 points). Assessment: 04:27 General: unable to locate pt. as6 Vital Signs: 02:50 BP 123 / 76; Pulse 96; Resp 18; Temp 98.7; Pulse Ox 100% ; Weight 90.72 kg; Height 5 kd3 ft. 2 in. (157.48 cm); Pain 5/10; 02:50 Body Mass Index 36.58 (90.72 kg, 157.48 cm) kd3 ED Course: 02:36 Patient arrived in ED. ja2 02:52 Gideon Casillas MD is Attending Physician. nel 02:52 Triage completed. kd3 02:52 Arm band placed on right wrist. kd3 02:53 Patient has correct armband on for positive identification. kd3 04:27 French Tsai, RN is Primary Nurse. as6 Administered Medications: No medications were administered Outcome: 04:28 Patient left the ED. as6 Signatures: Gideon Casillas MD MD cha Alexander, Jessica ja2 French Tsai, RN RN as6 Darline Musa RN RN kd3
--- NOTE | 2022-04-22 04:28 | EDPHYS ---
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 - Social history:: Smoking status: unknown. Vital Signs: 02:50 BP 123 / 76; Pulse 96; Resp 18; Temp 98.7; Pulse Ox 100% ; Weight 90.72 kg; Height 5 kd3 ft. 2 in. (157.48 cm); Pain 5/10; 02:50 Body Mass Index 36.58 (90.72 kg, 157.48 cm) kd3 MDM: 02:52 Patient medically screened. nel 04:24 ED course: pt not in room x 3 visits, call to her numbers , not working #'s. nel Administered Medications: No medications were administered Disposition Summary: 04/22/22 04:27 Eloped Disposition: before being seen by provider nel Problem: new nel Symptoms: are unchanged nel Reason: unknown nel Condition: Undetermined nel Diagnosis - Fall on same level, unspecified nel - 30 weeks gestation of nel Followup: nel - With: Private Physician - When: Upon discharge from the Emergency Department - Reason: Recheck today's complaints, Continuance of care, Re-evaluation by your physician Signatures: Gideon Casillas MD MD cha Doucette, Kyli, RN RN kd3
[2022-04-22 04:42] VITALS: BP 123/76; TEMP 98.7; O2SAT 100
--- OUTSIDE RECORDS SUMMARY | 2022-05-01 01:06 | XMS REPORT | Continuity of Care Document ---
:2000 Author Organization [facility] t Address [address] [place] [address] Care Team Providers Name Role Phone Bk PEDRO Primary Care Physician Unavailable INDUCTION Attending Clinician Unavailable Richard AYALA Attending Clinician Unavailable Richard Jason Attending Clinician Bertrand ROBERTS Attending Clinician BERTRAND Attending Clinician Unavailable SHREYAS CAMACHO Attending Clinician Unavailable 1, Us Room Attending Clinician Unavailable Shreyas Camacho MD Attending Clinician Ann WALLIS Attending Clinician Unavailable Ann Wallis MD Attending Clinician Bk Mccall Attending Clinician Jg Bañuelos Attending Clinician Unavailable José Luis Tejada Attending Clinician Unavailable Saleem PEGUERO F Attending Clinician Ann WALLIS Admitting Clinician Unavailable Ann Wallis MD Admitting Clinician Physician, Primary or Family Admitting Clinician Unavailabl e Payers Payer Name Policy Type Policy Number Effective Date Expiration Date S alex [facility] [id number] 2022 00:00:00 [facility] [id number] 2017 2022 CHOICE CHIP 00:00:00 00:00:00 Problems Condition Condition Condition Status Onset Resolution Last Treating Co mments Source Name Details Category Date Date Treatment Clinician Date 30 weeks 30 weeks Disease Active Unive rs gestation gestation 6-21 ity of of of 00:00: [place] 00 Medi zaira Branch Dichorioni Dichorioni Disease Active U nivers c c 5-05 [place] diam[place] Medical Bran ch in second in second trimester trimester UTI in UTI in Disease Active Univers , , 4-25 it y of antepartum [place] , second , second 00 Medica l trimester trimester Bran ch Supervisio Supervisio Disease Active U nivers n of high n of high 4-21 ity of risk risk 00:00: [place] 00 Medi zaira in second in second Bran ch trimester trimester Multiparit Multiparit Disease Active U nivers y y 4-21 ity of 00:00: [place] 00 [facility] Branch Anemia of Anemia of Disease Active Uni vers mother in mother in 4-21 [place] , , [place] antepartum antepartum 00 [place] dical Branch Obese Obese Disease Active 2015-10 Univers 0-03 ity of 00:00: 00 Medical [place] History of History of Disease Active 2014-10 U nivers asthma asthma 0-06 ity of 00:00: [place] [address] [facility] Allergies, Adverse Reactions, Alerts Allergy Allergy Status Severity Reaction(s) Onset Inactive Treating Comm ents Source Name Type Date Date Clinician No Known DA Active U [facility] [place] 00:[facility] d 00 [facility] No Known DA Active U [facility] 7- [facility] 00:00: d 00 [facility] NO KNOWN Drug Active Univers ALLERGIE Class ity of S [facility] Social History Social Habit Start Date Stop Date Quantity Comments Source ASSERTION 2021-09-17 University of 00:00:00 [facility] Exposure to 2022-04-15 2022-04-25 Not sure University of SARS-CoV-2 00:00:00 14:08:00 [facility] (event) Branch Alcohol intake 2022-04-25 2022-04-25 0 /d University 00:00:00 00:00:00 [facility] Tobacco use and 2012-12-15 2012-12-15 Smokeless tobacco Un iversity of exposure 00:00:00 00:00:00 non-user [facility] Sex Assigned At [birth year] Universit y of 00:00:00 00:00:00 [facility] Smoking Status Start Date Stop Date Source Never smoked tobacco [facility] Medications Ordered Filled Start Stop Current Ordering Indication Dosage Frequency Signature Comments Components Source Medication Medication Date Date Medication? Clinician (SIG) Name Name sulfamethox 2021- Yes [id number] 160mg Take 20 mL Univers azole-trime 04-25 by mouth ity of thoprim 00:00: 04:59 in the [place] 200-40 mg/5 00 :00 morning Medic al mL and 20 mL Branch suspension in the evening. Do all this for 5 days. iron No 1000mg 1,000 mg, Unive rs dextran 04-02 IV ity of (INFED) 02:30: 07:56 [place] 1,000 mg in 00 :00 ONCE, 1 Medic al NaCl 0.9% dose, On Branch (NS) 500 mL Tue IV infusion 04/01/22 at 2130, Administer over 1.5 Hours, 500 mL iron 2021- No 25mg 25 mg, IV Univers dextran 04-02 Piggyback, ity o f (INFED) 25 02:30: 03:51 ONCE, 1 [place] mg in NaCl 00 :00 dose, On Medic al 0.9% (NS) Tue Branch 100 mL IV 04/01/22 at piggyback 2130, Administer over 15 Minutes, 100 mL cefTRIAXone 2021- No [id number] 1000mg Univers (ROCEPHIN) 03-28 ity of injection 19:45: 18:59 [place] 1,000 mg 00 :00 [facility] cefTRIAXone 2021- No [id number] 1000mg 1,000 mg, Univers (ROCEPHIN) 03-28 Intramuscu it y of injection 19:45: 18:59 [place], ONCE, [place] 1,000 mg 00 :00 1 dose, On Thu Branch 03/28/22 at 1445, Routine
Reason for Anti-Infec tive: Documented Infection< br>Documen madhu Infection Site: Urine
D uration of Therapy: Other (see Comments) Nitrofurant 2021- Yes [id number] 100mg Take 1 Univers oin&Nit. 03-28 capsule by ity of Macrocryst 00:00: 04:59 mouth 2 [place] (MACROBID) 00 :00 (two) Medical 100 mg times Branch capsule daily for 7 days. Nitrofurant 2021- Yes [id number] 100mg Take 1 Univers oin&Nit. 03-28 capsule by ity of Macrocryst 00:00: 04:59 mouth 2 [place] (MACROBID) 00 :00 (two) Medical 100 mg times Branch capsule daily for 7 days. Nitrofurant 2021- Yes [id number] 100mg Take 1 Univers oin&Nit. 03-28 capsule by ity of Macrocryst 00:00: 04:59 mouth 2 [place] as (MACROBID) 00 :00 (two) Medical 100 mg times Branch capsule daily for 7 days. Nitrofurant 2021- Yes [id number] 100mg Take 1 Univers oin&Nit. 03-28 capsule by ity of Macrocryst 00:00: 04:59 mouth 2 [place] (MACROBID) 00 :00 (two) Medical 100 mg times Branch capsule daily for 7 days. Nitrofurant 2021- Yes [id number] 100mg Take 1 Univers oin&Nit. 03-28 capsule by ity of Macrocryst 00:00: 04:59 mouth 2 [place] (MACROBID) 00 :00 (two) Medical 100 mg times Branch capsule daily for 7 days. cephALEXin 2021- No [id number] 500mg Take 20 mL Univers 125 mg/5 mL 02-03 by mouth 4 i ty of suspension 00:00: 00:00 (four[place] times Medical daily for Branch 10 days. ferrous Yes [id number] 325mg Take 1 Un radha sulfate 325 3-25 tablet by ity of mg (65 mg 00:00: mouth 3 [place] iron) 00 (three) Medical tablet times Branch daily with meals. ferrous Yes [id number] 325mg Take 1 Un radha sulfate 325 3-25 tablet by ity of mg (65 mg 00:00: mouth 3 [place] iron) 00 (three) Medical tablet times Branch daily with meals. ferrous Yes [id number] 325mg Take 1 Un radha sulfate 325 3-25 tablet by ity of mg (65 mg 00:00: mouth 3 [place] iron) 00 (three) Medical tablet times Branch daily with meals. ferrous Yes [id number] 325mg Take 1 Un radha sulfate 325 3-25 tablet by ity of mg (65 mg 00:00: mouth 3 [place] iron) 00 (three) Medical tablet times Branch daily with meals. ferrous Yes [id number] 325mg Take 1 Un radha sulfate 325 3-25 tablet by ity of mg (65 mg 00:00: mouth 3 [place] iron) 00 (three) Medical tablet times Branch daily with meals. ferrous Yes [id number] 325mg Take 1 Un radha sulfate 325 3-25 tablet by ity of mg (65 mg 00:00: mouth 3 [place] iron) 00 (three) Medical tablet times Branch daily with meals. ferrous Yes [id number] 325mg Take 1 Un radha sulfate 325 3-25 tablet by ity of mg (65 mg 00:00: mouth 3 [place] iron) 00 (three) Medical tablet times Branch daily with meals. ferrous Yes [id number] 325mg Take 1 Un radha sulfate 325 3-25 tablet by ity of mg (65 mg 00:00: mouth 3 [place] iron) 00 (three) Medical tablet times Branch daily with meals. ferrous Yes [id number] 325mg Take 1 Un radha sulfate 325 3-25 tablet by ity of mg (65 mg 00:00: mouth 3 [place] iron) 00 (three) Medical tablet times Branch daily with meals. ferrous Yes [id number] 325mg Take 1 Un radha sulfate 325 3-25 tablet by ity of mg (65 mg 00:00: mouth 3 [place] iron) 00 (three) Medical tablet times Branch daily with meals. Immunizations Ordered Immunization Filled Immunization Date Status Commen ts Source Name Name [facility] 2022-03-28 Completed University of 00:00:00 [facility] TDAP 2022-03-28 Completed University of 00:00:00 [facility] TDAP 2022-03-28 Completed University of 00:00:00 [facility] TDAP 2022-03-28 Completed University of 00:00:00 [facility] TDAP 2022-03-28 Completed University of 00:00:00 [facility] TDAP 2022-03-28 Completed University of 00:00:00 [facility] TDAP 2022-03-28 Completed University of 00:00:00 [facility] TDAP 2022-03-28 Completed University of 00:00:00 [facility] Meningococcal 2016-02-06 Completed University of Polysaccharide 00:00:00 [place] Medi zaira (groups A, C, Y and Branc h W-135) conjugate vaccine (MCV4P) Meningococcal B, OMV 2016-02-06 Completed Univ ersity of 00:00:00 [facility] HPV9 2016-02-06 Completed University of 00:00:00 [facility] Meningococcal 2016-02-06 Completed University of Polysaccharide 00:00:00 [place] Medi zaira (groups A, C, Y and Branc h W-135) conjugate vaccine (MCV4P) Meningococcal B, OMV 2016-02-06 Completed Univ ersity of 00:00:00 [facility] HPV9 2016-02-06 Completed University of 00:00:00 [facility] Meningococcal 2016-02-06 Completed University of Polysaccharide 00:00:00 [place] Medi zaira (groups A, C, Y and Branc h W-135) conjugate vaccine (MCV4P) Meningococcal B, OMV 2016-02-06 Completed Univ ersity of 00:00:00 [facility] HPV9 2016-02-06 Completed University of 00:00:00 [facility] Meningococcal 2016-02-06 Completed University of Polysaccharide 00:00:00 [place] Medi zaira (groups A, C, Y and Branc h W-135) conjugate vaccine (MCV4P) Meningococcal B, OMV 2016-02-06 Completed Univ ersity of 00:00:00 [facility] HPV9 2016-02-06 Completed University of 00:00:00 [facility] Meningococcal 2016-02-06 Completed University of Polysaccharide 00:00:00 [place] Medi zaira (groups A, C, Y and Branc h W-135) conjugate vaccine (MCV4P) Meningococcal B, OMV 2016-02-06 Completed Univ ersity of 00:00:00 [facility] HPV9 2016-02-06 Completed University of 00:00:00 [facility] Meningococcal 2016-02-06 Completed University of Polysaccharide 00:00:00 [place] Medi zaira (groups A, C, Y and Branc h W-135) conjugate vaccine (MCV4P) Meningococcal B, OMV 2016-02-06 Completed Univ ersity of 00:00:00 [facility] HPV9 2016-02-06 Completed University of 00:00:00 [facility] Meningococcal 2016-02-06 Completed University of Polysaccharide 00:00:00 [place] Medi zaira (groups A, C, Y and Branc h W-135) conjugate vaccine (MCV4P) Meningococcal B, OMV 2016-02-06 Completed Univ ersity of 00:00:00 [facility] HPV9 2016-02-06 Completed University of 00:00:00 [facility] Meningococcal 2016-02-06 Completed University of Polysaccharide 00:00:00 [place] Medi zaira (groups A, C, Y and Branc h W-135) conjugate vaccine (MCV4P) Meningococcal B, OMV 2016-02-06 Completed Univ ersity of 00:00:00 [facility] HPV9 2016-02-06 Completed University of 00:00:00 [facility] Meningococcal 2016-02-06 Completed University of Polysaccharide 00:00:00 [place] Medi zaira (groups A, C, Y and Branc h W-135) conjugate vaccine (MCV4P) Meningococcal B, OMV 2016-02-06 Completed Univ ersity of 00:00:00 [facility] HPV9 2016-02-06 Completed University of 00:00:00 [facility] Meningococcal 2016-02-06 Completed University of Polysaccharide 00:00:00 [place] Medi zaira (groups A, C, Y and Branc h W-135) conjugate vaccine (MCV4P) Meningococcal B, OMV 2016-02-06 Completed Univ ersity of 00:00:00 [facility] HPV9 2016-02-06 Completed University of 00:00:00 [facility] Varicella 2014-04-28 Completed University of (varivax)(chicken 00:00:00 [place] M edical pox) Branch Varicella 2014-04-28 Completed University of (varivax)(chicken 00:00:00 [place] M [place]ical pox) Branch Varicella 2014-04-28 Completed University of (varivax)(chicken 00:00:00 [place] M edical pox) Branch Varicella 2014-04-28 Completed University of (varivax)(chicken 00:00:00 [place] M [facility]ical pox) Branch Varicella 2014-04-28 Completed University of (varivax)(chicken 00:00:00 [place] M [place]ical pox) Branch Varicella 2014-04-28 Completed University of (varivax)(chicken 00:00:00 [place] M edical pox) Branch Varicella 2014-04-28 Completed University of (varivax)(chicken 00:00:00 [place] M edical pox) Branch Varicella 2014-04-28 Completed University of (varivax)(chicken 00:00:00 [place] M edical pox) Branch Varicella 2014-04-28 Completed University of (varivax)(chicken 00:00:00 [place] M edical pox) Branch Varicella 2014-04-28 Completed University of (varivax)(chicken 00:00:00 [place] M edical pox) Branch TDAP 2014-02-20 Completed University of 00:00:00 [facility] TDAP 2014-02-20 Completed University of 00:00:00 [facility] TDAP 2014-02-20 Completed University of 00:00:00 [facility] TDAP 2014-02-20 Completed University of 00:00:00 [facility] TDAP 2014-02-20 Completed University of 00:00:00 [facility] TDAP 2014-02-20 Completed University of 00:00:00 [facility] TDAP 2014-02-20 Completed University of 00:00:00 [facility] TDAP 2014-02-20 Completed University of 00:00:00 [facility] TDAP 2014-02-20 Completed University of 00:00:00 [facility] TDAP 2014-02-20 Completed University of 00:00:00 [facility] HPV 2010-01-03 Completed University of 00:00:00 [facility] HPV 2010-01-03 Completed University of 00:00:00 [facility] HPV 2010-01-03 Completed University of 00:00:00 [facility] HPV 2010-01-03 Completed University of 00:00:00 [place] [facility] HPV 2010-01-03 Completed University of 00:00:00 [place] [facility] HPV 2010-01-03 Completed University of 00:00:00 [place] [facility] HPV 2010-01-03 Completed University of 00:00:00 [facility] HPV 2010-01-03 Completed University of 00:00:00 [facility] HPV 2010-01-03 Completed University of 00:00:00 [facility] HPV 2010-01-03 Completed University of 00:00:00 [facility] H1n1 Vaccine 2009-09-25 Completed University o f 00:00:00 [facility] H1n1 Vaccine 2009-09-25 Completed University o f 00:00:00 [facility] H1n1 Vaccine 2009-09-25 Completed University o f 00:00:00 [facility] H1n1 Vaccine 2009-09-25 Completed University o f 00:00:00 [facility] H1n1 Vaccine 2009-09-25 Completed University o f 00:00:00 [facility] H1n1 Vaccine 2009-09-25 Completed University o f 00:00:00 [facility] H1n1 Vaccine 2009-09-25 Completed University o f 00:00:00 [facility] H1n1 Vaccine 2009-09-25 Completed University o f 00:00:00 [facility] H1n1 Vaccine 2009-09-25 Completed University o f 00:00:00 [facility] H1n1 Vaccine 2009-09-25 Completed University o f 00:00:00 [facility] HPV 2009-06-06 Completed University of 00:00:00 [facility] HPV 2009-06-06 Completed University of 00:00:00 [place] [facility] HPV 2009-06-06 Completed University of 00:00:00 [place] [facility] HPV 2009-06-06 Completed University of 00:00:00 [place] [facility] HPV 2009-06-06 Completed University of 00:00:00 [place] [facility] HPV 2009-06-06 Completed University of 00:00:00 [place] [facility] HPV 2009-06-06 Completed University of 00:00:00 [place] [facility] HPV 2009-06-06 Completed University of 00:00:00 [place] [facility] HPV 2009-06-06 Completed University of 00:00:00 [place] [facility] HPV 2009-06-06 Completed University of 00:00:00 [facility] Varicella 2006-08-03 Completed University of (varivax)(chicken 00:00:00 [place] [facility] [place] pox) Branch HEPATITIS A 2006-08-03 Completed University of 00:00:00 [facility] Varicella 2006-08-03 Completed University of (varivax)(chicken 00:00:00 [place] [facility]ical pox) Branch HEPATITIS A 2006-08-03 Completed University of 00:00:00 [facility] Varicella 2006-08-03 Completed University of (varivax)(chicken 00:00:00 [place] M edical pox) Branch HEPATITIS A 2006-08-03 Completed University of 00:00:00 [facility] Varicella 2006-08-03 Completed University of (varivax)(chicken 00:00:00 [place] M edical pox) Branch HEPATITIS A 2006-08-03 Completed University of 00:00:00 [facility] Varicella 2006-08-03 Completed University of (varivax)(chicken 00:00:00 [place] M edical pox) Branch HEPATITIS A 2006-08-03 Completed University of 00:00:00 [facility] Varicella 2006-08-03 Completed University of (varivax)(chicken 00:00:00 [place] M edical pox) Branch HEPATITIS A 2006-08-03 Completed University of 00:00:00 [facility] Varicella 2006-08-03 Completed University of (varivax)(chicken 00:00:00 [place] M edical pox) Branch HEPATITIS A 2006-08-03 Completed University of 00:00:00 [facility] Varicella 2006-08-03 Completed University of (varivax)(chicken 00:00:00 [place] M edical pox) Branch HEPATITIS A 2006-08-03 Completed University of 00:00:00 [facility] Varicella 2006-08-03 Completed University of (varivax)(chicken 00:00:00 [place] M edical pox) Branch HEPATITIS A 2006-08-03 Completed University of 00:00:00 [facility] Varicella 2006-08-03 Completed University of (varivax)(chicken 00:00:00 [place] M edical pox) Branch HEPATITIS A 2006-08-03 Completed University of 00:00:00 [facility] MMR 2003-12-01 Completed University of 00:00:00 [facility] Polio (IPV/OPV) 2003-12-01 Completed Universit y of 00:00:00 [facility] DTAP 2003-12-01 Completed University of 00:00:00 [facility] MMR 2003-12-01 Completed University of 00:00:00 [facility] Polio (IPV/OPV) 2003-12-01 Completed Universit y of 00:00:00 [facility] DTAP 2003-12-01 Completed University of 00:00:00 [facility] MMR 2003-12-01 Completed University of 00:00:00 [facility] Polio (IPV/OPV) 2003-12-01 Completed Universit y of 00:00:00 [facility] DTAP 2003-12-01 Completed University of 00:00:00 [facility] MMR 2003-12-01 Completed University of 00:00:00 [facility] Polio (IPV/OPV) 2003-12-01 Completed Universit y of 00:00:00 [facility] DTAP 2003-12-01 Completed University of 00:00:00 [facility] MMR 2003-12-01 Completed University of 00:00:00 [facility] Polio (IPV/OPV) 2003-12-01 Completed Universit y of 00:00:00 [facility] DTAP 2003-12-01 Completed University of 00:00:00 [facility] MMR 2003-12-01 Completed University of 00:00:00 [facility] Polio (IPV/OPV) 2003-12-01 Completed Universit y of 00:00:00 [facility] DTAP 2003-12-01 Completed University of 00:00:00 [facility] MMR 2003-12-01 Completed University of 00:00:00 [facility] Polio (IPV/OPV) 2003-12-01 Completed Universit y of 00:00:00 [facility] DTAP 2003-12-01 Completed University of 00:00:00 [facility] MMR 2003-12-01 Completed University of 00:00:00 [facility] Polio (IPV/OPV) 2003-12-01 Completed Universit y of 00:00:00 [facility] DTAP 2003-12-01 Completed University of 00:00:00 [facility] MMR 2003-12-01 Completed University of 00:00:00 [facility] Polio (IPV/OPV) 2003-12-01 Completed Universit y of 00:00:00 [facility] DTAP 2003-12-01 Completed University of 00:00:00 [facility] MMR 2003-12-01 Completed University of 00:00:00 [facility] Polio (IPV/OPV) 2003-12-01 Completed Universit y of 00:00:00 [facility] DTAP 2003-12-01 Completed University of 00:00:00 [facility] Pneumococcal 7 2001-04-19 Completed University of Conjugate, PCV7 00:00:00 [place] [facility] ical (Prevnar7) Branch Pneumococcal 7 2001-04-19 Completed University of Conjugate, PCV7 00:00:00 [place] Med ical (Prevnar7) Branch Pneumococcal 7 2001-04-19 Completed University of Conjugate, PCV7 00:00:00 [place] Med ical (Prevnar7) Branch Pneumococcal 7 2001-04-19 Completed University of Conjugate, PCV7 00:00:00 [place] Med ical (Prevnar7) Branch Pneumococcal 7 2001-04-19 Completed University of Conjugate, PCV7 00:00:00 [place] Med ical (Prevnar7) Branch Pneumococcal 7 2001-04-19 Completed University of Conjugate, PCV7 00:00:00 [place] Med ical (Prevnar7) Branch Pneumococcal 7 2001-04-19 Completed University of Conjugate, PCV7 00:00:00 [place] Med ical (Prevnar7) Branch Pneumococcal 7 2001-04-19 Completed University of Conjugate, PCV7 00:00:00 [place] Med ical (Prevnar7) Branch Pneumococcal 7 2001-04-19 Completed University of Conjugate, PCV7 00:00:00 [place] Med ical (Prevnar7) Branch Pneumococcal 7 2001-04-19 Completed University of Conjugate, PCV7 00:00:00 [place] Med ical (Prevnar7) Branch Pneumococcal 7 2001-02-08 Completed University of Conjugate, PCV7 00:00:00 [place] Med ical (Prevnar7) Branch DTAP 2001-02-08 Completed University of 00:00:00 [facility] HIB 4 Dose Schedule 2001-02-08 Completed Unive rsity of 00:00:00 [facility] Pneumococcal 7 2001-02-08 Completed University of Conjugate, PCV7 00:00:00 [place] Med ical (Prevnar7) Branch DTAP 2001-02-08 Completed University of 00:00:00 [facility] HIB 4 Dose Schedule 2001-02-08 Completed Unive rsity of 00:00:00 [facility] Pneumococcal 7 2001-02-08 Completed University of Conjugate, PCV7 00:00:00 [place] Med ical (Prevnar7) Branch DTAP 2001-02-08 Completed University of 00:00:00 [facility] HIB 4 Dose Schedule 2001-02-08 Completed Unive rsity of 00:00:00 [facility] Pneumococcal 7 2001-02-08 Completed University of Conjugate, PCV7 00:00:00 [place] [facility] (Prevnar7) [facility] DTAP 2001-02-08 Completed University of 00:00:00 [facility] HIB 4 Dose Schedule 2001-02-08 Completed Unive rsity of 00:00:00 [facility] Pneumococcal 7 2001-02-08 Completed University of Conjugate, PCV7 00:00:00 [place] [facility] (Prevnar7) [facility] DTAP 2001-02-08 Completed University of 00:00:00 [facility] HIB 4 Dose Schedule 2001-02-08 Completed Unive rsity of 00:00:00 [facility] Pneumococcal 7 2001-02-08 Completed University of Conjugate, PCV7 00:00:00 [place] [facility] (Prevnar7) [facility] DTAP 2001-02-08 Completed University of 00:00:00 [facility] HIB 4 Dose Schedule 2001-02-08 Completed Unive rsity of 00:00:00 [facility] Pneumococcal 7 2001-02-08 Completed University of Conjugate, PCV7 00:00:00 [place] [facility] (Prevnar7) [facility] DTAP 2001-02-08 Completed University of 00:00:00 [facility] HIB 4 Dose Schedule 2001-02-08 Completed Unive rsity of 00:00:00 [facility] Pneumococcal 7 2001-02-08 Completed University of Conjugate, PCV7 00:00:00 [place] [facility] (Prevnar7) [facility] DTAP 2001-02-08 Completed University of 00:00:00 [facility] HIB 4 Dose Schedule 2001-02-08 Completed Unive rsity of 00:00:00 [facility] Pneumococcal 7 2001-02-08 Completed University of Conjugate, PCV7 00:00:00 [place] [facility] (Prevnar7) [facility] DTAP 2001-02-08 Completed University of 00:00:00 [facility] HIB 4 Dose Schedule 2001-02-08 Completed Unive rsity of 00:00:00 [facility] Pneumococcal 7 2001-02-08 Completed University of Conjugate, PCV7 00:00:00 [place] [facility] (Prevnar7) [facility] DTAP 2001-02-08 Completed University of 00:00:00 [facility] HIB 4 Dose Schedule 2001-02-08 Completed Unive rsity of 00:00:00 [facility] MMR 2000-12-11 Completed University of 00:00:00 [facility] Polio (IPV/OPV) 2000-12-11 Completed Universit y of 00:00:00 [facility] Varicella 2000-12-11 Completed University of (varivax)(chicken 00:00:00 [place] [facility] pox) [facility] Hep B, Adol or Pedi 2000-12-11 Completed Unive rsity of Dosage 00:00:00 [facility] MMR 2000-12-11 Completed University of 00:00:00 [facility] Polio (IPV/OPV) 2000-12-11 Completed Universit y of 00:00:00 [facility] Varicella 2000-12-11 Completed University of (varivax)(chicken 00:00:00 [place] [facility] pox) [facility] Hep B, Adol or Pedi 2000-12-11 Completed Unive rsity of Dosage 00:00:00 [facility] MMR 2000-12-11 Completed University of 00:00:00 [facility] Polio (IPV/OPV) 2000-12-11 Completed Universit y of 00:00:00 [facility] Varicella 2000-12-11 Completed University of (varivax)(chicken 00:00:00 [place] [facility] pox) [facility] Hep B, Adol or Pedi 2000-12-11 Completed Unive rsity of Dosage 00:00:00 [facility] MMR 2000-12-11 Completed University of 00:00:00 [facility] Polio (IPV/OPV) 2000-12-11 Completed Universit y of 00:00:00 [facility] Varicella 2000-12-11 Completed University of (varivax)(chicken 00:00:00 [place] [facility] pox) [facility] Hep B, Adol or Pedi 2000-12-11 Completed Unive rsity of Dosage 00:00:00 [facility] MMR 2000-12-11 Completed University of 00:00:00 [facility] Polio (IPV/OPV) 2000-12-11 Completed Universit y of 00:00:00 [facility] Varicella 2000-12-11 Completed University of (varivax)(chicken 00:00:00 [place] [facility] pox) [facility] Hep B, Adol or Pedi 2000-12-11 Completed Unive rsity of Dosage 00:00:00 [facility] MMR 2000-12-11 Completed University of 00:00:00 [facility] Polio (IPV/OPV) 2000-12-11 Completed Universit y of 00:00:00 [facility] Varicella 2000-12-11 Completed University of (varivax)(chicken 00:00:00 [place] [facility] pox) [facility] Hep B, Adol or Pedi 2000-12-11 Completed Unive rsity of Dosage 00:00:00 [facility] MMR 2000-12-11 Completed University of 00:00:00 [facility] Polio (IPV/OPV) 2000-12-11 Completed Universit y of 00:00:00 [facility] Varicella 2000-12-11 Completed University of (varivax)(chicken 00:00:00 [place] [facility] pox) [facility] Hep B, Adol or Pedi 2000-12-11 Completed Unive rsity of Dosage 00:00:00 [facility] MMR 2000-12-11 Completed University of 00:00:00 [facility] Polio (IPV/OPV) 2000-12-11 Completed Universit y of 00:00:00 [facility] Varicella 2000-12-11 Completed University of (varivax)(chicken 00:00:00 [place] [facility] pox) [facility] Hep B, Adol or Pedi 2000-12-11 Completed Unive rsity of Dosage 00:00:00 [facility] MMR 2000-12-11 Completed University of 00:00:00 [facility] Polio (IPV/OPV) 2000-12-11 Completed Universit y of 00:00:00 [facility] Varicella 2000-12-11 Completed University of (varivax)(chicken 00:00:00 [place] [facility] pox) [facility] Hep B, Adol or Pedi 2000-12-11 Completed Unive rsity of Dosage 00:00:00 [facility] MMR 2000-12-11 Completed University of 00:00:00 [facility] Polio (IPV/OPV) 2000-12-11 Completed Universit y of 00:00:00 [facility] Varicella 2000-12-11 Completed University of (varivax)(chicken 00:00:00 [facility] edical pox) Branch Hep B, Adol or Pedi 2000-12-11 Completed Unive rsity of Dosage 00:00:00 [facility] Hep B, Adol or Pedi 2000-09-02 Completed Unive rsity of Dosage 00:00:00 [facility] Hep B, Adol or Pedi 2000-09-02 Completed Unive rsity of Dosage 00:00:00 [facility] Hep B, Adol or Pedi 2000-09-02 Completed Unive rsity of Dosage 00:00:00 [facility] Hep B, Adol or Pedi 2000-09-02 Completed Unive rsity of Dosage 00:00:00 [facility] Hep B, Adol or Pedi 2000-09-02 Completed Unive rsity of Dosage 00:00:00 [facility] Hep B, Adol or Pedi 2000-09-02 Completed Unive rsity of Dosage 00:00:00 [facility] Hep B, Adol or Pedi 2000-09-02 Completed Unive rsity of Dosage 00:00:00 [facility] Hep B, Adol or Pedi 2000-09-02 Completed Unive rsity of Dosage 00:00:00 [facility] Hep B, Adol or Pedi 2000-09-02 Completed Unive rsity of Dosage 00:00:00 [facility] Hep B, Adol or Pedi 2000-09-02 Completed Unive rsity of Dosage 00:00:00 [facility] DTAP 2000-06-05 Completed University of 00:00:00 [facility] HIB 4 Dose Schedule 2000-06-05 Completed [facility]ive rsity of 00:00:00 [facility] DTAP 2000-06-05 Completed University of 00:00:00 [facility] HIB 4 Dose Schedule 2000-06-05 Completed [facility]ive rsity of 00:00:00 [facility] DTAP 2000-06-05 Completed University of 00:00:00 [facility] HIB 4 Dose Schedule 2000-06-05 Completed Unive rsity of 00:00:00 [facility] DTAP 2000-06-05 Completed University of 00:00:00 [facility] HIB 4 Dose Schedule 2000-06-05 Completed Unive rsity of 00:00:00 [facility] DTAP 2000-06-05 Completed [facility] 00:00:00 [facility] HIB 4 Dose Schedule 2000-06-05 Completed Unive rsity of 00:00:00 [facility] DTAP 2000-06-05 Completed University of 00:00:00 [facility] HIB 4 Dose Schedule 2000-06-05 Completed [facility]ive rsity of 00:00:00 [facility] DTAP 2000-06-05 Completed University of 00:00:00 [facility] HIB 4 Dose Schedule 2000-06-05 Completed [facility]ive [facility]ity of 00:00:00 [facility] DTAP 2000-06-05 Completed University of 00:00:00 [facility] HIB 4 Dose Schedule 2000-06-05 Completed [facility]ive rsity of 00:00:00 [facility] DTAP 2000-06-05 Completed University of 00:00:00 [facility] HIB 4 Dose Schedule 2000-06-05 Completed Unive rsity of 00:00:00 [facility] DTAP 2000-06-05 Completed University of 00:00:00 [facility] HIB 4 Dose Schedule 2000-06-05 Completed Unive rsity of 00:00:00 [facility] Polio (IPV/OPV) 2000-04-07 Completed Universit y of 00:00:00 [facility] DTAP 2000-04-07 Completed University of 00:00:00 [facility] HIB 4 Dose Schedule 2000-04-07 Completed Unive rsity of 00:00:00 [facility] Hep B, Adol or Pedi 2000-04-07 Completed Unive rsity of Dosage 00:00:00 [facility] Polio (IPV/OPV) 2000-04-07 Completed Universit y of 00:00:00 [facility] DTAP 2000-04-07 Completed University of 00:00:00 [facility] HIB 4 Dose Schedule 2000-04-07 Completed [facility]ive rsity of 00:00:00 [facility] Hep B, Adol or Pedi 2000-04-07 Completed Unive rsity of Dosage 00:00:00 [facility] Polio (IPV/OPV) 2000-04-07 Completed Universit y of 00:00:00 [facility] DTAP 2000-04-07 Completed University of 00:00:00 [facility] HIB 4 Dose Schedule 2000-04-07 Completed [facility]ive rsity of 00:00:00 [facility] Hep B, Adol or Pedi 2000-04-07 Completed Unive rsity of Dosage 00:00:00 [facility] Polio (IPV/OPV) 2000-04-07 Completed Universit y of 00:00:00 [facility] DTAP 2000-04-07 Completed University of 00:00:00 [facility] HIB 4 Dose Schedule 2000-04-07 Completed Unive rsity of 00:00:00 [facility] Hep B, Adol or Pedi 2000-04-07 Completed Unive rsity of Dosage 00:00:00 [facility] Polio (IPV/OPV) 2000-04-07 Completed Universit y of 00:00:00 [facility] DTAP 2000-04-07 Completed University of 00:00:00 [facility] HIB 4 Dose Schedule 2000-04-07 Completed Unive rsity of 00:00:00 [facility] Hep B, Adol or Pedi 2000-04-07 Completed Unive rsity of Dosage 00:00:00 [facility] Polio (IPV/OPV) 2000-04-07 Completed Universit y of 00:00:00 [facility] DTAP 2000-04-07 Completed University of 00:00:00 [facility] HIB 4 Dose Schedule 2000-04-07 Completed Unive rsity of 00:00:00 [facility] Hep B, Adol or Pedi 2000-04-07 Completed Unive rsity of Dosage 00:00:00 [facility] Polio (IPV/OPV) 2000-04-07 Completed Universit y of 00:00:00 [facility] DTAP 2000-04-07 Completed University of 00:00:00 [facility] HIB 4 Dose Schedule 2000-04-07 Completed [facility]ive rsity of 00:00:00 [facility] Hep B, Adol or Pedi 2000-04-07 Completed Unive rsity of Dosage 00:00:00 [facility] Polio (IPV/OPV) 2000-04-07 Completed Universit y of 00:00:00 [facility] DTAP 2000-04-07 Completed University of 00:00:00 [facility] HIB 4 Dose Schedule 2000-04-07 Completed [facility]ive rsity of 00:00:00 [facility] Hep B, Adol or Pedi 2000-04-07 Completed Unive rsity of Dosage 00:00:00 [facility] Polio (IPV/OPV) 2000-04-07 Completed Universit y of 00:00:00 [facility] DTAP 2000-04-07 Completed University of 00:00:00 [facility] HIB 4 Dose Schedule 2000-04-07 Completed Unive rsity of 00:00:00 [facility] Hep B, Adol or Pedi 2000-04-07 Completed Unive rsity of Dosage 00:00:00 [facility] Polio (IPV/OPV) 2000-04-07 Completed Universit y of 00:00:00 [facility] DTAP 2000-04-07 Completed University of 00:00:00 [facility] HIB 4 Dose Schedule 2000-04-07 Completed Unive rsity of 00:00:00 [facility] Hep B, Adol or Pedi 2000-04-07 Completed Unive rsity of Dosage 00:00:00 [facility] Polio (IPV/OPV) 2000-01-21 Completed Universit y of 00:00:00 [facility] DTAP 2000-01-21 Completed University of 00:00:00 [facility] HIB 4 Dose Schedule 2000-01-21 Completed Unive rsity of 00:00:00 [facility] Polio (IPV/OPV) 2000-01-21 Completed Universit y of 00:00:00 [facility] DTAP 2000-01-21 Completed University of 00:00:00 [facility] HIB 4 Dose Schedule 2000-01-21 Completed Unive rsity of 00:00:00 [facility] Polio (IPV/OPV) 2000-01-21 Completed Universit y of 00:00:00 [facility] DTAP 2000-01-21 Completed University of 00:00:00 [facility] HIB 4 Dose Schedule 2000-01-21 Completed Unive rsity of 00:00:00 [facility] Polio (IPV/OPV) 2000-01-21 Completed Universit y of 00:00:00 [facility] DTAP 2000-01-21 Completed University of 00:00:00 [facility] HIB 4 Dose Schedule 2000-01-21 Completed Unive rsity of 00:00:00 [facility] Polio (IPV/OPV) 2000-01-21 Completed Universit y of 00:00:00 [facility] DTAP 2000-01-21 Completed University of 00:00:00 [facility] HIB 4 Dose Schedule 2000-01-21 Completed [facility]ive [facility]ity of 00:00:00 [facility] Polio (IPV/OPV) 2000-01-21 Completed Universit y of 00:00:00 [facility] DTAP 2000-01-21 Completed [facility] 00:00:00 [facility] HIB 4 Dose Schedule 2000-01-21 Completed [facility]ive rsity of 00:00:00 [facility] Polio (IPV/OPV) 2000-01-21 Completed Universit y of 00:00:00 [facility] DTAP 2000-01-21 Completed [facility] of 00:00:00 [facility] HIB 4 Dose Schedule 2000-01-21 Completed Unive rsity of 00:00:00 [facility] Polio (IPV/OPV) 2000-01-21 Completed Universit y of 00:00:00 [facility] DTAP 2000-01-21 Completed University of 00:00:00 [facility] HIB 4 Dose Schedule 2000-01-21 Completed Unive rsity of 00:00:00 [facility] Polio (IPV/OPV) 2000-01-21 Completed Universit y of 00:00:00 [facility] DTAP 2000-01-21 Completed University of 00:00:00 [facility] HIB 4 Dose Schedule 2000-01-21 Completed Unive rsity of 00:00:00 [facility] Polio (IPV/OPV) 2000-01-21 Completed Universit y of 00:00:00 [facility] DTAP 2000-01-21 Completed University of 00:00:00 [facility] HIB 4 Dose Schedule 2000-01-21 Completed Unive rsity of 00:00:00 [facility] Vital Signs Vital Name Observation Time Observation Value Comments Source Systolic blood 2022-04-25 19:09:00 115 mm[Hg] Univer sity of pressure [facility] Diastolic blood 2022-04-25 19:09:00 73 mm[Hg] Unive rsity of pressure [facility] Heart rate 2022-04-25 19:09:00 102 /min Universi ty [facility] Body temperature 2022-04-25 19:09:00 36.72 Sho Univ ersity of [facility] Respiratory rate 2022-04-25 19:09:00 26 /min Univ ersity [facility] Body height 2022-04-25 19:09:00 157.5 cm Universi ty [facility] Body weight 2022-04-25 19:09:00 90.81 kg [facility] BMI 2022-04-25 19:09:00 36.62 kg/m2 [facility] Systolic blood 2022-04-11 18:07:00 101 mm[Hg] Univer [facility]ity of pressure [facility] Diastolic blood 2022-04-11 18:07:00 68 mm[Hg] Unive rsity of pressure [facility] Heart rate 2022-04-11 18:07:00 79 /min [facility] [place] Body temperature 2022-04-11 18:07:00 36.22 Sho Univ ersity of [facility] Respiratory rate 2022-04-11 18:07:00 18 /min Univ ersity of [facility] Body height 2022-04-11 18:07:00 157.5 cm [facility] [place] Body weight 2022-04-11 18:07:00 88.905 kg [facility] BMI 2022-04-11 18:07:00 35.85 kg/m2 [facility] Systolic blood 2022-04-02 09:00:00 119 mm[Hg] Univer [facility]ity of pressure [facility] Diastolic blood 2022-04-02 09:00:00 67 mm[Hg] Unive rsity of pressure [facility] Heart rate 2022-04-02 09:00:00 85 /min [facility] [place] Body temperature 2022-04-02 09:00:00 36.61 Sho Univ ersity of [facility] Respiratory rate 2022-04-02 09:00:00 18 /min Univ ersity of [facility] Oxygen saturation in 2022-04-02 09:00:00 100 /min [facility] Arterial blood by [facility] Pulse oximetry Branch Body height 2022-04-02 01:41:00 157.5 cm [facility] Body weight 2022-04-02 01:41:00 91.037 kg [facility] BMI 2022-04-02 01:41:00 36.71 kg/m2 [facility] Systolic blood 2022-03-28 18:08:00 104 mm[Hg] Univer sity of pressure [facility] Diastolic blood 2022-03-28 18:08:00 72 mm[Hg] Unive rsity of pressure [facility] Heart rate 2022-03-28 18:08:00 97 /min Universi ty of [facility] Body temperature 2022-03-28 18:08:00 36.11 Sho Univ ersity of [facility] Respiratory rate 2022-03-28 18:08:00 17 /min Univ ersity of [facility] Body height 2022-03-28 18:08:00 157.5 cm Universi ty of [facility] Body weight 2022-03-28 18:08:00 89.812 kg Universi ty of [facility] BMI 2022-03-28 18:08:00 36.21 kg/m2 Universi ty of [facility] Systolic blood 2022-02-27 16:13:00 122 mm[Hg] Univer sity of [facility] Diastolic blood 2022-02-27 16:13:00 76 mm[Hg] Unive rsity of [facility] Heart rate 2022-02-27 16:13:00 91 /min Universi ty of [facility] Body temperature 2022-02-27 16:13:00 [facility].39 [facility] 2022-02-27 16:13:00 18 /min Univ ersity of [facility] Body height 2022-02-27 16:13:00 157.5 cm Universi ty of [facility] Body weight 2022-02-27 16:13:00 85.276 kg Universi ty of [facility] BMI 2022-02-27 16:13:00 34.39 kg/m2 [facility] Procedures Procedure Date / Time Performed Performing Clinician Sour e POCT URINALYSIS 2022-04-25 19:11:00 Dilia Harmon o f [facility] POCT URINALYSIS W/O 2022-04-11 19:33:[address] [facility] SPECIFIC GRAV[facility] TDAP VACCINE, >11 YRS, 2022-03-28 18:15:02 Veronique Ayala [facility] POCT URINALYSIS 2022-03-28 18:09:00 AnilaKumar Harmon o f [facility] GLUCOSE 1 HOUR POST 2022-02-27 17:15:00 Veronique Ayala [facility] POCT URINALYSIS 2022-02-27 16:58:00 Anila-Kumar Harmon o f [facility] Encounters Start End Encounter Admission Attending Care Care Encounter Source Date/Time Date/Time Type Type Clinicians Facility Department ID 2022-04-02 Outpatient P [facility] GAURAV [id number] Univers 05:13:43 ity [facility] 2022-05-27 2022-05-27 Outpatient INDUCTION, [facility] [id number] Univers 07:15:00 07:15:00 NELLIE [id number] ity [facility] 2022-05-23 2022-05-23 Outpatient P [facility] [id number] Univers 13:00:00 13:00:00 [id number] ity [facility] 2022-05-23 2022-05-23 Outpatient P [facility] [id number] Univers 13:00:00 13:00:00 ity [facility] 2022-05-09 2022-05-09 Outpatient R LUCY [facility] [id number] Univers 13:45:00 13:45:00 VERONIQUE [id number] [facility] 2022-04-25 2022-04-25 Routine Veronique Ayala [facility] [id number] Univers 14:15:00 14:30:00 Taylor Thurston NUCLEAR TECHNICIAN [id number] ity of Visit [facility] [id number] Filipe as MATERNAL [id number] Med ical & CHILD [address] [place] [address] 2022-04-25 2022-04-25 Outpatient R TAYLOR THURSTON [facility] [id number] Univers 14:15:00 14:15:00 TAYLOR THURSTON [id number] ity [facility] 2022-04-25 2022-04-25 Outpatient P ARTUR [facility] [id number] Univers 13:00:00 13:53:31 [facility]22-04-25 2022-04-25 Slate Roofer 1, [facility] Room [facility] 1.2. [id number] Univers 13:00:00 13:53:31 Visit Rito Camacho NUCLEAR TECHNICIAN [id number] ity of [facility] [id number] Filipe as MATERNAL [id number] Med ical & CHILD [address] [facility] 2022-04-11 2022-04-11 [facility] [id number] Univers 12:45:00 13:52:18 VERONIQUE [facility] 2022-04-11 2022-04-11 Routine [facility] [id number] Univers 12:45:00 13:52:18 Veronique Ramos NUCLEAR TECHNICIAN [id number] i ty of Visit [facility] [id number] Filipe as MATERNAL [id number] [facility] CH[facility] [address] [place] [address] 2022-04-11 2022-04-11 Outpatient Sukh AAYLA [facility] [id number] Univers 12:45:00 12:45:00 VERONIQUE [id number] [facility] 2022-04-01 2022-04-02 Outpatient Randa WALLIS [facility] [facility] [id number] Univers 20:21:00 05:13:00 SAMMY [facility] 2022-04-01 2022-04-02 Hospital NELLIE Wallis [id number] Univers 20:21:00 05:13:00 Encounter Sammy WRIGHT 350.1.13.10 ity of [facility] 4.2.7.2.686 [place] as [phone] [address] 2022-04-02 2022-04-02 [facility]phone [facility] 1.2.840.114 [id number] Univers 00:00:00 00:00:00 Sara Bourgeois NUCLEAR TECHNICIAN 350.1.13.10 ity of [facility] 4.2.7.2.686 [place]pe as MATERNAL [phone] Med ical & CHILD [address] [place] [address] 2022-03-31 2022-03-31 [facility]phone [facility] 1.2.840.114 [id number] Univers 00:00:00 00:00:00 Veronique Ramos NUCLEAR TECHNICIAN 350.1.13.10 it y of REGIONAL 4.2.7.2.686 [place] as MATERNAL [phone] [facility] [address] [place] [address] 2022-03-28 2022-03-28 Outpatient P LUCY [facility] [id number] Univers 13:30:00 15:05:06 VERONIQUE hennessy [facility] 2022-03-28 2022-03-28 Slate Roofer 1, [facility] Room [facility] 1.2. 840.114 [id number] Univers 13:30:00 14:30:00 Visit Veronique Ayala NUCLEAR TECHNICIAN 350.1.13.10 ity of [facility] 4.2.7.2.686 [place] as MATERNAL [phone] [facility] [address] [place] [address] 2022-03-28 2022-03-28 [facility]ine [facility] [id number] Univers 12:45:00 14:01:26 Veronique Ramos NUCLEAR TECHNICIAN 350.1.13.10 i ty of Visit REGIONAL 4.2.7.2.686 [place] as MATERNAL [phone] [facility] ical & CHILD [address] [place] [address] 2022-02-28 2022-02-28 [facility]phone [facility] 1.2.840.114 [id number] Univers 00:00:00 00:00:00 Sara Bourgeois NUCLEAR TECHNICIAN 350.1.13.10 ity of REGIONAL 4.2.7.2.686 [place] as MATERNAL [phone] [facility] ical & CHILD [address] [place] [address] 2022-02-27 2022-02-27 Outpatient TAYLOR RODRIGUEZ [facility] [id number] Univers 10:45:00 12:27:03 TAYLOR THURSTON [facility] 2022-02-27 2022-02-27 Routine Bertrand [facility] 1.2.840.114 [id number] Univers 10:45:00 12:27:03 Taylor NUCLEAR TECHNICIAN 350.1.13.10 i ty of Visit [facility] 4.2.7.2.686 [place] as MATERNAL [phone] Med ical & CHILD [address] [place] [address] 2021-05-21 2021-05-21 Emergency EM Linda Bañuelos HCAKW FCER [id number] [facility] 00:29:00 02:26:00 [id number] [facility] 2021-04-29 2021-04-29 Emergency EM CHANDNI Tejada JUAN LA543 [id number] [facility] 22:18:00 23:50:00 Nadiya [id number] [facility] 2019-05-12 2019-05-12 Emergency Saleem, [facility] 1.2.840.114 [id number] 15:30:32 18:09:00 [facility] 350.1.13.10 [place] 4.2.7.2.686 [place] [phone] [id number] Results Test Description Test Time Test Comments Results Result Comments Source POCT URINALYSIS W SPECIFIC GRAVITY 2022-04-25 19:12:00 Test Item Value Reference Range Interpretation Comme nts POCT U SP GRAV (test code = 3255) n/a 1.005-1.025 POCT PH U (test code = 3254) 7 mg/dl 5-8 POCT U LEUK EST (test code = 3263) 2+ Negative - Negative POCT U NIT (test code = 3262) positive Negative - Negative POCT U PROT (test code = 3259) t Negative - Negative POCT U GLU (test code = 3256) n Negative - Negative POCT U KETONE (test code = 3258) small Negative - Negative POCT U UROBILI (test code = 3260) n/a 0.2-1 POCT U BILI (test code = 3261) n/a Negative - Negative POCT U BLD (test code = 3257) Negative - Negative POCT U COLOR (test code = 3266) n/a POCT U APPEAR (test code = 3267) n/a [facility] [id number] 19:34:00 Test Item Value Reference Range Interpretation Comments POCT PH U (test code = 3254) 9 mg/dl 5-8 A POCT U LEUK EST (test code = neg Negative - Negative 3263) POCT U NIT (test code = 3262) neg Negative - Negative POCT U PROT (test code = 3259) neg Negative - Negative POCT U GLU (test code = 3256) neg Negative - Negative POCT U KETONE (test code = 3258) neg Negative - Negative POCT U BLD (test code = 3257) neg Negative - Negative Lab Interpretation (test code = Abnormal 45998-4) [facility] URINALYSIS W SPECIFIC [id number] 18:10:00 Test Item Value Reference Range Interpretation Comments POCT U SP GRAV (test code = n/a 1.005-1.025 3255) POCT PH U (test code = 3254) 5 mg/dl 5-8 POCT U LEUK EST (test code = neg Negative - Negative 3263) POCT U NIT (test code = 3262) positive Negative - Negative POCT U PROT (test code = 3259) neg Negative - Negative POCT U GLU (test code = 3256) neg Negative - Negative POCT U KETONE (test code = 3258) neg Negative - Negative POCT U UROBILI (test code = n/a 0.2-1 3260) POCT U BILI (test code = 3261) n/a Negative - Negative POCT U BLD (test code = 3257) neg Negative - Negative POCT U COLOR (test code = 3266) yellow POCT U APPEAR (test code = 3267) clear [facility] URINALYSIS W SPECIFIC [id number] 16:59:00 Test Item Value Reference Range Interpretation Comments POCT U SP GRAV (test code = 3255) na 1.005-1.025 POCT PH U (test code = 3254) 6 mg/dl 5-8 POCT U LEUK EST (test code = 1+ Negative - Negative 3263) POCT U NIT (test code = 3262) pos Negative - Negative POCT U PROT (test code = 3259) trace Negative - Negative POCT U GLU (test code = 3256) neg Negative - Negative POCT U KETONE (test code = 3258) neg Negative - Negative POCT U UROBILI (test code = 3260) na 0.2-1 POCT U BILI (test code = 3261) na Negative - Negative POCT U BLD (test code = 3257) trace Negative - Negative POCT U COLOR (test code = 3266) POCT U APPEAR (test code = 3267) [facility] [id number] 02:10:00 Test Item Value Reference Range Interpretation Comments SODIUM (test code = 140 MMOL/L 135-147 N NA) POTASSIUM (test code 3.7 MMOL/L 3.6-5.2 N = K) CHLORIDE (test code = 104 MMOL/L 98-108 N CL) CARBON DIOXIDE (test 29 mmol/L 21-32 N code = CO2) GLUCOSE (test code = 92 mg/dL 70-110 N GLU) BLOOD UREA NITROGEN 9 MG/DL 6-21 N (test code = BUN) GLOMERULAR FILTRATION 117 >60 The es timated RATE (test code = glomerular filtration GFR) rate is compute d usingpatient ra ce, age (>18), sex, and serum creatinine. If anyof the needed data elements are mi ssing the Laboratory cannot compute an frandy mation of the glomerul ar filtration rate . CREATININE (test code 0.8 mg/dL 0.6-1.3 N = CREAT) TOTAL PROTEIN (test 7.7 g/dL 6.0-8.2 N code = PROT) ALBUMIN (test code = 3.6 G/DL 3.7-5.5 L ALB) CALCIUM (test code = 8.4 mg/dL 8.7-10.5 L CA) BILIRUBIN TOTAL (test 0.20 mg/dL 0.0-1.0 N code = BILT) SGOT/AST (test code = 13 UNITS/L 10-37 N AST) SGPT/ALT (test code = 16 UNITS/L 12-78 N ALT) ALKALINE PHOSPHATASE 51 UNITS/L 46-116 N (test code = ALKP) [id number] 02:10:00 Test Item Value Reference Range Interpretation Comments LIPASE (test code = LIP) 122 UNITS/L 73-393 N CBC W/AUTO [id number] 01:47:00 Test Item Value Reference Range Interpretation [...] BA#) 0.03 x10 3/uL 0.0-0.1 N URINALYSIS [id number] 01:02:00 Test Item Value Reference Range Interpretation [...] DIPSTICK (test code message] The system = [employer]) which generated this result transmitted reference range [...] NONE SEEN A = SPERMU) UR HCG [id number] 01:02:00 Test Item Value Reference Range Interpretation Comments UR HCG QUAL (test code NEGATIVE NEGATIVE HCG10 68911 12-09-2022 = HCGQLU) URINALYSIS [id number] 00:57:00 Test Item Value Reference Range Interpretation [...] /HPF NEGATIVE code = BACU) UR HCG [id number] 00:57:00 Test Item Value Reference Range Interpretation Comments UR HCG QUAL (test code NEGATIVE NEGATIVE HCG10 51784 12-09-2022 = HCGQLU) URINALYSIS [id number] 00:55:00 Test Item Value Reference Range Interpretation [...] /HPF NEGATIVE code = BACU) UR HCG [id number] 00:55:00 Test Item Value Reference Range Interpretation Comments UR HCG QUAL (test code = HCGQLU) NEGATIVE UA RFLX MICR CULT IF [id number] 23:56:00 Test Item Value Reference Range Interpretation [...] = UACULT) Indication for culture: Dysuria/FrequencyUR HCG [id number] 23:56:00 Test Item Value Reference Range Interpretation [...] = UACULT) Indication for culture: Dysuria/FrequencyUR HCG [id number] 23:42:00 Test Item Value Reference Range Interpretation [...] = UACULT) Indication for culture: Dysuria/FrequencyUR HCG [id number] 23:41:00 Test Item Value Reference Range Interpretation Comments UR HCG QUAL (test code = HCGQLU) NEGATIVE Indication for culture: Dysuria/Frequency
== END 2022-04-22 04:28 | disposition left against medical advice (07) ==
LOC: ER 02:34
DX: Z53.21 Procedure and treatment not carried out due to patient leaving prior to being seen by health care provider (principal); W18.30XA Fall on same level, unspecified, initial encounter
CPT/HCPCS: 99281

== ENCOUNTER 2023-06-10 22:12 | Emergency (ER) | payer OTHER ==
--- OUTSIDE RECORDS SUMMARY | 2023-06-10 22:21 | XMS REPORT | Continuity of Care Document ---
:2000 Author Organization [facility] t Address [address] [place] [address] [place] [id number] Care Team Providers Name Role Phone JEANNETTE LIZARRAGA Primary Care Physician Unavailable TODD GARNICA Attending Clinician Unavailable POOJA SMITH Attending Clinician Unavailable Jeannette Benavides Attending Clinician JEANNETTE LIZARRAGA Attending Clinician Unavailable RITO CAMACHO Attending Clinician Unavailable Ultrasound, Sug-Mfm Attending Clinician Unavailable iRto Camacho MD Attending Clinician Chantell Hernandez Attending Clinician Unavailable Logan Dailey Attending Clinician Zahida Aparicio Attending Clinician LOGAN VILLALOBOS Attending Clinician Unavailable Doctor Unassigned, Leoti Attending Clinician Unavailable ZAHIDA KLEIN Attending Clinician Unavailable Cecilia Stovall Attending Clinician ANGY GONZALEZ Attending Clinician Unavailable Taylor Thurston PA-C Attending Clinician TAYLOR THURSTON Attending Clinician Unavailable ROSA M OGDEN Attending Clinician Unavailable ROSA M OGDEN Attending Clinician Unavailable Pgy1 Attending Clinician Unavailable MAGI PÉREZ Attending Clinician Unavailable Beto MSN, Magi Ang Attending Clinician Rome[facility]ino Attending Clinician [phone] DEVIKA TRAN Attending Clinician Unavailable Devika Tran MD Attending Clinician [phone] Nataliia Zapata PA-C Attending Clinician Stephanie Jason Attending Clinician SY ALFARO Attending Clinician Unavailable Sy Alfaro MD Attending Clinician STEPHANIE AYALA Attending Clinician Unavailable Visit, [facility] Nurse Attending Clinician Unavailable EDUARDO WALTERS Attending Clinician Unavailable CLEMENTINE GONZALEZ Attending Clinician Unavailable Clementine Gonzalez MD Attending Clinician Faculty, Ob Attending Clinician Unavailable Faiza Cheung MD Attending Clinician Dilia DESKTOP PUBLISHING SPECIALIST, Todd Attending Clinician [phone], [facility] Room Attending Clinician Unavailable SAMMY WALLIS Attending Clinician Unavailable Sammy Wallis MD Attending Clinician MAGGIE MENDES Attending Clinician Unavailable MAGGIE MENDES Attending Clinician Unavailable Maggie Mendes MD Attending Clinician Linda Bañuelos Attending Clinician Unavailable Nadiya Tejada Attending Clinician Unavailable Gentry Arias F Attending Clinician Chantell Hernandez Admitting Clinician Unavailable DEVIKA TRAN Admitting Clinician Unavailable Devika Tran MD Admitting Clinician [phone] SY ALFARO Admitting Clinician Unavailable CLEMENTINE GONZALEZ Admitting Clinician Unavailable Clementine Gonzalez MD Admitting Clinician SAMMY WALLIS Admitting Clinician Unavailable Sammy Wallis MD Admitting Clinician Physician, No Primary or Family Admitting Clinician Unavaila ble Payers Payer Name Policy Type Policy Number Effective Date Expiration Date Lucero johnson [facility] [id number] 2022 00:00:00 [facility] [id number] 2017 2021 CHOICE CHIP 00:00:00 00:00:00 Problems Condition Condition Condition Status Onset Resolution Last Treating Co mments Source Name Details Category Date Date Treatment Clinician Date Supervisio Supervisio Disease Active U nivers n of high n of high 7-19 ity of risk risk 00:00: [place] 00 Medi zaira in second in second Bran ch trimester trimester Hyperthyro Hyperthyro Disease Active U luis manuelers idism idism 7-19 [place] affecting [place] in second Bran ch trimester trimester Obesity Obesity Disease Active Univers affecting affecting 7-19 [place] Med[place] zaira trimester trimester Bran ch Previous Previous Disease Active Unive rs 7-19 [place] ante[place] ante[place] Me dical condition condition Bran ch or or complicati complicati on on Low TSH Low TSH Disease Active 2021-10 Univers level level 0-31 ity of 00:00: [place] [facility] Encounter Encounter Disease Active 2021-10 Uni vers for for 0-31 ity of surveill[place] of Medical contracept contracept Br anch helen pills helen pills Hyperthyro Hyperthyro Disease Active 2021-10 U [place] idism idism 0-21 ity of 00:00: [place] [facility] Abnormal Abnormal Disease Active Unive rs uterine uterine 9-09 ity of bleeding bleeding 00:00: [place] [facility] Multiparit Multiparit Disease Active U [place] y y 4-21 ity of 00:00: [place] [address] Medical Branch Obese Obese Disease Active 2015-10 Univers 0-03 ity of 00:00: [place] [facility] Obesity Obesity Disease Active 2015-10 Univers (BMI (BMI 0-03 ity of 30-39.9) 30-39.9) 00:00: [place] 00 Medical Branch History of History of Disease Active 2014-10 U [place] asthma asthma 0-06 ity of 00:00: [place] 00 Medical Branch Dysmenorrh Dysmenorrh Disease Active U [place] ea ea 9-03 ity of 00:00: [place] 00 [facility] Allergies, Adverse Reactions, Alerts Allergy Allergy Status Severity Reaction(s) Onset Inactive Treating Comm ents Source Name Type Date Date Clinician No Known DA Active [facility] No Known DA [facility] [place] NO KNOWN Drug Active Univers ALLERGIE Class ity of S [facility] Social History Social Habit Start Date Stop Date Quantity Comments Source ASSERTION 2022-11-23 [facility] 00:00:00 [facility] Gender identity Universit y of [facility] intake 2023-05-27 2023-05-27 0 /d University of 00:00:00 00:00:00 [facility] History of Social 2023-04-29 2023-04-29 Univers ity of function 00:00:00 00:00:00 [facility] Tobacco use and 2023-04-29 2023-04-29 Smokeless Universit y of exposure 00:00:00 00:00:00 tobacco non-user [facility] Exposure to 2022-07-19 2022-07-29 Not sure [facility] SARS-CoV-2 (event) 00:00:00 11:15:00 [facility] Sex Assigned At [birth year] Universit y of 00:00:00 00:00:00 [facility] Smoking Status Start Date Stop Date Source Never smoked tobacco [facility] Medications Ordered Filled Start Stop Current Ordering Indication Dosage Frequency Signature Comments Components Source Medication Medication Date Date Medication? Clinician (SIG) Name Name ampicillin 2022- Yes [id number] 500mg Take 1 Univers 500 mg 05-01 capsule by ity of capsule 00:00: 04:59 mouth [place] 00 :00 every 6 Medical (six) Branch hours for 10 days. ampicillin 2022- No [id number] 500mg Take 1 Univers 500 mg 7-05-12 capsule by ity of capsule 00:00: 04:59 mouth [place] 00 :00 every 6 Medical (six) Branch hours for 10 days. ferrous Yes [id number] 325mg Take 1 Un radha sulfate 325 7-20 tablet by ity of mg (65 mg 00:00: [place] iron[place] 00 the Medical tablet morning. Branch ferrous Yes [id number] 325mg Take 1 Un radha sulfate 325 7-20 tablet by ity of mg (65 mg 00:00: [place] iron[place] 00 the Medical tablet morning. Branch ferrous Yes [id number] 325mg Take 1 Un radha sulfate 325 7-20 tablet by ity of mg (65 mg 00:00: [place] iron[place] 00 the Medical tablet morning. Branch ferrous Yes [id number] 325mg Take 1 Un radha sulfate 325 7-20 tablet by ity of mg (65 mg 00:00: [place] iron[place] 00 the Medical tablet morning. Branch ferrous Yes [id number] 325mg Take 1 Un radha sulfate 325 7-20 tablet by ity of mg (65 mg 00:00: [place] iron[place] 00 the Medical tablet morning. Branch ferrous Yes [id number] 325mg Take 1 Un radha sulfate 325 7-20 tablet by ity of mg (65 mg 00:00: [place] iron[place] 00 the Medical tablet morning. Branch ferrous Yes [id number] 325mg Take 1 Un radha sulfate 325 7-20 tablet by ity of mg (65 mg 00:00: [place] iron[place] 00 the Medical tablet morning. Branch norethindro Yes [id number] 1{tbl} Take 1 Univers ne-e.estrad 9-20 tablet by ity of ioL-iron 00:00: mouth in [place] 1.5 mg-30 00 the Medical mcg (21)/75 morning. Bran ch mg (7) per tablet ascorbic Yes [id number] 500mg Take 1 U nivers acid, 9-20 tablet by ity of vitamin C, 00:00: mouth [place] 500 mg 00 every Medical tablet other day. Branch norethindro Yes [id number] 1{tbl} Take 1 Univers ne-e.estrad 9-20 tablet by ity of ioL-iron 00:00: mouth in [place] 1.5 mg-30 00 the Medical mcg () morning. Bran ch mg (7) per tablet ascorbic Yes [id number] 500mg Take 1 U nivers acid, 9-20 tablet by ity of vitamin C, 00:00: mouth [place] 500 mg 00 every Medical tablet other day. Branch norethindro Yes [id number] 1{tbl} Take 1 Univers ne-e.estrad 9-20 tablet by ity of ioL-iron 00:00: mouth in [place] 1.5 mg-30 00 the Medical mcg () morning. Bran ch mg (7) per tablet ascorbic Yes [id number] 500mg Take 1 U nivers acid, 9-20 tablet by ity of vitamin C, 00:00: mouth [place] 500 mg 00 every Medical tablet other day. Branch norethindro Yes [id number] 1{tbl} Take 1 Univers ne-e.estrad 9-20 tablet by ity of ioL-iron 00:00: mouth in [place] 1.5 mg-30 00 the Medical mcg () morning. Bran ch mg (7) per tablet ascorbic Yes [id number] 500mg Take 1 U nivers acid, 9-20 tablet by ity of vitamin C, 00:00: mouth [place] 500 mg 00 every Medical tablet other day. Branch norethindro Yes [id number] 1{tbl} Take 1 Univers ne-e.estrad 9-20 tablet by ity of ioL-iron 00:00: mouth in [place] 1.5 mg-30 00 the Medical mcg () morning. Bran ch mg (7) per tablet ascorbic Yes [id number] 500mg Take 1 U nivers acid, 9-20 tablet by ity of vitamin C, 00:00: mouth [place] 500 mg 00 every Medical tablet other day. Branch norethindro Yes [id number] 1{tbl} Take 1 Univers ne-e.estrad 9-20 tablet by ity of ioL-iron 00:00: mouth in [place] 1.5 mg-30 00 the Medical mcg () morning. Bran ch mg (7) per tablet ascorbic Yes [id number] 500mg Take 1 U nivers acid, 9-20 tablet by ity of vitamin C, 00:00: mouth [place] 500 mg 00 every Medical tablet other day. Branch norethindro Yes [id number] 1{tbl} Take 1 Univers ne-e.estrad 9-20 tablet by ity of ioL-iron 00:00: mouth in [place] 1.5 mg-30 00 the Medical mcg () morning. Bran ch mg (7) per tablet ascorbic Yes [id number] 500mg Take 1 U nivers acid, 9-20 tablet by ity of vitamin C, 00:00: mouth [place] 500 mg 00 every Medical tablet other day. Branch norethindro Yes [id number] 1{tbl} Take 1 Univers ne-e.estrad 9-20 tablet by ity of ioL-iron 00:00: mouth in [place] 1.5 mg-30 00 the Medical mcg () morning. Bran ch mg (7) per tablet ascorbic Yes [id number] 500mg Take 1 U nivers acid, 9-20 tablet by ity of vitamin C, 00:00: mouth [place] 500 mg 00 every Medical tablet other day. Branch norethindro Yes [id number] 1{tbl} Take 1 Univers ne-e.estrad 9-20 tablet by ity of ioL-iron 00:00: mouth in [place] 1.5 mg-30 00 the Medical mcg () morning. Bran ch mg (7) per tablet ascorbic Yes [id number] 500mg Take 1 U nivers acid, 9-20 tablet by ity of vitamin C, 00:00: mouth [place] 500 mg 00 every Medical tablet other day. Branch norethindro 2022- No [id number] 1{tbl} Take 1 Univers ne-e.estrad 9-20 07-19 tablet by it y of ioL-iron 00:00: 00:[facility] the Medical mcg (21)/75 morning. Bran ch mg (7) per tablet ascorbic 2022- No [id number] 500mg Take 1 Univers acid, 07-01- tablet by ity of vitamin C, 00:00: 00:00 mouth [place] 500 mg 00 :00 every Medical tablet other day. Branch medroxyPROG 2021- No [id number] 20mg Take 2 Univers ESTERone 10 06-21 100 tablets by i ty of mg tablet 00:00: 04:59 mouth in [place] 00 :00 the Medical morning Branch and 2 tablets at noon and 2 tablets in the evening. Do all this for 7 days. medroxyPROG 2021- No [id number] 20mg Take 2 Univers ESTERone 10 06-21 100 tablets by i ty of mg tablet 00:00: 04:59 mouth in [place] 00 :00 the Medical morning Branch and 2 tablets at noon and 2 tablets in the evening. Do all this for 7 days. ferrous 2021-0 Yes [id number] 325mg Take 1 Un radha sulfate 325 8-04 tablet by ity of mg (65 mg 00:00: [place] iron[place] 00 the Medical tablet morning Branch and 1 tablet in the evening. ibuprofen 2021-0 Yes [id number] 600mg Take 1 Univers 600 mg 8-04 tablet by ity of tablet 00:00: mouth [place] 00 every 6 Medical (six) Branch hours as needed (Pain). Take with food or milk. ferrous 2021-0 Yes [id number] 325mg Take 1 Un radha sulfate 325 8-04 tablet by ity of mg (65 mg 00:00: [place] iron[place] 00 the Medical tablet morning Branch and 1 tablet in the evening. ibuprofen 2021-0 Yes [id number] 600mg Take 1 Univers 600 mg 8-04 tablet by ity of tablet 00:00: mouth [place] 00 every 6 Medical (six) Branch hours as needed (Pain). Take with food or milk. ferrous 2021-0 Yes [id number] 325mg Take 1 Un radha sulfate 325 8-04 tablet by ity of mg (65 mg 00:00: [place] iron[place] 00 the Medical tablet morning Branch and 1 tablet in the evening. ibuprofen 2022-0 Yes [id number] 600mg Take 1 Univers 600 mg 8-04 tablet by ity of tablet 00:00: mouth [place] 00 every 6 Medical (six) Branch hours as needed (Pain). Take with food or milk. ferrous 2021-0 Yes [id number] 325mg Take 1 Un radha sulfate 325 8-04 tablet by ity of mg (65 mg 00:00: [place] iron[place] 00 the Medical tablet morning Branch and 1 tablet in the evening. ibuprofen 2021-0 Yes [id number] 600mg Take 1 Univers 600 mg 8-04 tablet by ity of tablet 00:00: mouth [place] 00 every 6 Medical (six) Branch hours as needed (Pain). Take with food or milk. ferrous 2021-0 Yes [id number] 325mg Take 1 Un radha sulfate 325 8-04 tablet by ity of mg (65 mg 00:00: [place] iron[place] 00 the Medical tablet morning Branch and 1 tablet in the evening. ibuprofen 2021-0 Yes [id number] 600mg Take 1 Univers 600 mg 8-04 tablet by ity of tablet 00:00: mouth [place] 00 every 6 Medical (six) Branch hours as needed (Pain). Take with food or milk. ferrous 2021-0 Yes [id number] 325mg Take 1 Un radha sulfate 325 8-04 tablet by ity of mg (65 mg 00:00: [place] iron[place] 00 the Medical tablet morning Branch and 1 tablet in the evening. ibuprofen 2021-0 Yes [id number] 600mg Take 1 Univers 600 mg 8-04 tablet by ity of tablet 00:00: mouth [place] 00 every 6 Medical (six) Branch hours as needed (Pain). Take with food or milk. ferrous 2-0 Yes [id number] 325mg Take 1 Un radha sulfate 325 8-04 tablet by ity of mg (65 mg 00:00: [place] iron[place] 00 the Medical tablet morning Branch and 1 tablet in the evening. ibuprofen 2022-0 Yes [id number] 600mg Take 1 Univers 600 mg 8-04 tablet by ity of tablet 00:00: mouth [place] 00 every 6 Medical (six) Branch hours as needed (Pain). Take with food or milk. ferrous 2022-0 Yes [id number] 325mg Take 1 Un radha sulfate 325 8-04 tablet by ity of mg (65 mg 00:00: [place] iron[place] 00 the Medical tablet morning Branch and 1 tablet in the evening. ibuprofen 2-0 Yes [id number] 600mg Take 1 Univers 600 mg 8-04 tablet by ity of tablet 00:00: mouth [place] 00 every 6 Medical (six) Branch hours as needed (Pain). Take with food or milk. ferrous 2021-0 Yes [id number] 325mg Take 1 Un radha sulfate 325 8-04 tablet by ity of mg (65 mg 00:00: [place] iron[place] 00 the Medical tablet morning Branch and 1 tablet in the evening. ibuprofen 2021-0 Yes [id number] 600mg Take 1 Univers 600 mg 8-04 tablet by ity of tablet 00:00: mouth [place] 00 every 6 Medical (six) Branch hours as needed (Pain). Take with food or milk. ferrous 2021-0 Yes [id number] 325mg Take 1 Un radha sulfate 325 8-04 tablet by ity of mg (65 mg 00:00: [place] iron[place] 00 the Medical tablet morning Branch and 1 tablet in the evening. ibuprofen 2021-0 Yes [id number] 600mg Take 1 Univers 600 mg 8-04 tablet by ity of tablet 00:00: mouth [place] 00 every 6 Medical (six) Branch hours as needed (Pain). Take with food or milk. ferrous 2021-0 Yes [id number] 325mg Take 1 Un radha sulfate 325 8-04 tablet by ity of mg (65 mg 00:00: [place] iron[place] 00 the Medical tablet morning Branch and 1 tablet in the evening. ibuprofen 2021-0 Yes [id number] 600mg Take 1 Univers 600 mg 8-04 tablet by ity of tablet 00:00: mouth [place] 00 every 6 Medical (six) Branch hours as needed (Pain). Take with food or milk. ferrous 2021-0 2023- No [id number] 325mg Take 1 U nivers sulfate 325 8-04 07-19 tablet by it y of mg (65 mg 00:00: 00:00 mouth in [place] iron) 00 :00 the Medical tablet morning Branch and 1 tablet in the evening. ibuprofen 2021-0 2023- No [id number] 600mg Take 1 Univers 600 mg 8-04 07-19 tablet by ity of tablet 00:00: 00:00 mouth [place] 00 :00 every 6 Medical (six) Branch hours as needed (Pain). Take with food or milk. 2021- No [id number] 1{tbl} Take 1 Univers [id number] 05-15 tablet by it y of fum-folic 00:00: 00:00 mouth in [place] () 00 :00 the Medical 27 mg iron- morning. Bran ch 1 mg folic tablet docusate 2021- No [id number] 200mg Take 2 Univers 100 mg 05-15 capsules ity of capsule 00:00: 00:00 by mouth [place] 00 :00 once daily Medical as needed Branch for Constipati on. Immunizations Ordered Immunization Filled Immunization Date Status Commen ts Source Name Name [facility] 2023-05-27 Completed [facility] 00:00:00 [facility] 2023-05-27 Completed [facility] 00:00:00 [facility] TDAP 2023-05-27 Completed [facility] 00:00:00 [facility] Influenza Virus 2022-07-29 Completed Universit y of Vaccine Quad IM, 00:00:00 [place] Me dical Preserv and ABX Free Bran ch 6 MO-64 YRS Influenza Virus 2022-07-29 Completed Universit y of Vaccine [facility] IM, 00:00:00 [place] Me dical Preserv and ABX Free Bran ch 6 MO-64 YRS Influenza Virus 2022-07-29 Completed Universit y of Vaccine [facility] IM, 00:00:00 [place] Me dical Preserv and ABX Free Bran ch 6 MO-64 YRS Influenza Virus 2022-07-29 Completed Universit y of Vaccine [facility] IM, 00:00:00 [place] Me dical Preserv and ABX Free Bran ch 6 MO-64 YRS Influenza Virus 2022-07-29 Completed Universit y of Vaccine [facility] IM, 00:00:00 [place] Me dical Preserv and ABX Free Bran ch 6 MO-64 YRS Influenza Virus 2022-07-29 Completed Universit y of Vaccine [facility] IM, 00:00:00 [place] Me dical Preserv and ABX Free Bran ch 6 MO-64 YRS Influenza Virus 2022-07-29 Completed Universit y of Vaccine [facility] IM, 00:00:00 [place] Me dical Preserv and ABX Free Bran ch 6 MO-64 YRS Influenza Virus 2022-07-29 Completed Universit y of Vaccine [facility] IM, 00:00:00 [place] Me dical Preserv and ABX Free Bran ch 6 MO-64 YRS Influenza Virus 2022-07-29 Completed Universit y of Vaccine [facility] IM, 00:00:00 [place] Me dical Preserv and ABX Free Bran ch 6 MO-64 YRS Influenza Virus 2022-07-29 Completed Universit y of Vaccine [facility] IM, 00:00:00 [place] Me dical Preserv and ABX Free Bran ch 6 MO-64 YRS Influenza Virus 2022-07-29 Completed Universit y of Vaccine [facility] IM, 00:00:00 [place] Me dical Preserv and ABX Free Bran ch 6 MO-64 YRS Influenza Virus 2022-07-29 Completed Universit y of Vaccine [facility] IM, 00:00:00 [place] Me dical Preserv and ABX Free Bran ch 6 MO-64 YRS Influenza Virus 2022-07-29 Completed Universit y of Vaccine Quad IM, 00:00:00 [place] Me dical Preserv and ABX Free Bran ch 6 MO-64 YRS Influenza Virus 2022-07-29 Completed Universit y of Vaccine Quad IM, 00:00:00 [place] Me dical Preserv and ABX Free Bran ch 6 MO-64 YRS TDAP 2022-03-28 Completed University of 00:00:00 [facility] TDAP 2022-03-28 Completed University of 00:00:00 [facility] TDAP 2022-03-28 Completed University of 00:00:00 [facility] TDAP 2022-03-28 Completed University of 00:00:00 [facility] TDAP 2022-03-28 Completed University of 00:00:00 [facility] TDAP 2022-03-28 Completed University of 00:00:00 [facility] TDAP 2022-03-28 Completed University of 00:00:00 [facility] TDAP 2022-03-28 Completed University of 00:00:00 [facility] TDAP 2022-03-28 Completed University of 00:00:00 [facility] TDAP 2022-03-28 Completed University of 00:00:00 [facility] TDAP 2022-03-28 Completed University of 00:00:00 [facility] TDAP 2022-03-28 Completed University of 00:00:00 [facility] TDAP 2022-03-28 Completed University of 00:00:00 [facility] TDAP 2022-03-28 Completed University of 00:00:00 [facility] TDAP 2022-03-28 Completed University of 00:00:00 [facility] TDAP 2022-03-28 Completed University of 00:00:00 [facility] TDAP 2022-03-28 Completed University of 00:00:00 [facility] TDAP 2022-03-28 Completed University of 00:00:00 [facility] TDAP 2022-03-28 Completed University of 00:00:00 [facility] SARS-COV-2 COVID-19 2021-03-23 Completed Unive rsity of VACCINE - (MODERNA) 00:00:00 [facility] SARS-COV-2 COVID-19 2021-03-23 Completed Unive rsity of VACCINE - (MODERNA) 00:00:00 [facility] SARS-COV-2 COVID-19 2021-03-23 Completed Unive rsity of VACCINE - (MODERNA) 00:00:00 [facility] SARS-COV-2 COVID-19 2021-03-23 Completed Unive rsity of VACCINE - (MODERNA) 00:00:00 [facility] SARS-COV-2 COVID-19 2021-03-23 Completed Unive rsity of VACCINE - (MODERNA) 00:00:00 [facility] SARS-COV-2 COVID-19 2021-03-23 Completed Unive rsity of VACCINE - (MODERNA) 00:00:00 [facility] SARS-COV-2 COVID-19 2021-03-23 Completed Unive rsity of VACCINE - (MODERNA) 00:00:00 [facility] SARS-COV-2 COVID-19 2021-03-23 Completed Unive rsity of VACCINE - (MODERNA) 00:00:00 [facility] Meningococcal 2016-02-06 Completed University of Polysaccharide 00:00:00 [facility] zaira (groups A, C, Y and Branc h W-135) conjugate vaccine (MCV4P) Meningococcal B, OMV 2016-02-06 Completed Univ ersity of 00:00:00 [facility] HPV9 2016-02-06 Completed University of 00:00:00 [facility] Meningococcal 2016-02-06 Completed University of Polysaccharide 00:00:00 [place] Medi zaira (groups A, C, Y and Branc h W-135) conjugate vaccine (MCV4P) Meningococcal B, OMV 2016-02-06 Completed Univ ersity of 00:00:00 [facility] HPV9 2016-02-06 Completed University of 00:00:00 [facility] Meningococcal 2016-02-06 Completed University of Polysaccharide 00:00:00 [place] Medi zaira (groups A, C, Y and Branc h W-135) conjugate vaccine (MCV4P) Meningococcal B, OMV 2016-02-06 Completed Univ ersity of 00:00:00 [facility] HPV9 2016-02-06 Completed University of 00:00:00 [facility] Meningococcal 2016-02-06 Completed University of Polysaccharide 00:00:00 [place] Medi zaira (groups A, C, Y and Branc h W-135) conjugate vaccine (MCV4P) Meningococcal B, OMV 2016-02-06 Completed Univ ersity of 00:00:00 [facility] HPV9 2016-02-06 Completed University of 00:00:00 [facility] Meningococcal 2016-02-06 Completed University of Polysaccharide 00:00:00 [place] Medi zaira (groups A, C, Y and Branc h W-135) conjugate vaccine (MCV4P) Meningococcal B, OMV 2016-02-06 Completed Univ ersity of 00:00:00 [facility] HPV9 2016-02-06 Completed University of 00:00:00 [facility] Meningococcal 2016-02-06 Completed University of Polysaccharide 00:00:00 [place] Medi zaira (groups A, C, Y and Branc h W-135) conjugate vaccine (MCV4P) Meningococcal B, OMV 2016-02-06 Completed Univ ersity of 00:00:00 [facility] HPV9 2016-02-06 Completed University of 00:00:00 [facility] Meningococcal 2016-02-06 Completed University of Polysaccharide 00:00:00 [place] Medi zaira (groups A, C, Y and Branc h W-135) conjugate vaccine (MCV4P) Meningococcal B, OMV 2016-02-06 Completed Univ ersity of 00:00:00 [facility] HPV9 2016-02-06 Completed University of 00:00:00 [facility] Meningococcal 2016-02-06 Completed University of Polysaccharide 00:00:00 [place] Medi zaira (groups A, C, Y and Branc h W-135) conjugate vaccine (MCV4P) Meningococcal B, OMV 2016-02-06 Completed Univ ersity of 00:00:00 [facility] [facility] HPV9 2016-02-06 Completed [facility] 00:00:00 [facility] Meningococcal 2016-02-06 Completed [facility] Polysaccharide 00:00:00 [place] [facility] (groups A, C, Y and Branc h W-135) conjugate vaccine (MCV4P) Meningococcal B, OMV 2016-02-06 Completed [facility] ersity of 00:00:00 [facility] HPV9 2016-02-06 Completed [facility] 00:00:00 [facility] Meningococcal 2016-02-06 Completed [facility] Polysaccharide 00:00:00 [place] [facility] (groups A, C, Y and Branc h W-135) conjugate vaccine (MCV4P) Meningococcal B, OMV 2016-02-06 Completed [facility] ersity of 00:00:00 [facility] HPV9 2016-02-06 Completed [facility] 00:00:00 [facility] Meningococcal 2016-02-06 Completed [facility] Polysaccharide 00:00:00 [place] [facility] (groups A, C, Y and Branc h W-135) conjugate vaccine (MCV4P) Meningococcal B, OMV 2016-02-06 Completed [facility] ersity of 00:00:00 [facility] HPV9 2016-02-06 Completed [facility] 00:00:00 [facility] Meningococcal 2016-02-06 Completed [facility] Polysaccharide 00:00:00 [place] [facility] (groups A, C, Y and Branc h W-135) conjugate vaccine (MCV4P) Meningococcal B, OMV 2016-02-06 Completed [facility] ersity of 00:00:00 [facility] HPV9 2016-02-06 Completed [facility] 00:00:00 [facility] Meningococcal 2016-02-06 Completed [facility] Polysaccharide 00:00:00 [place] [facility] (groups A, C, Y and Branc h W-135) conjugate vaccine (MCV4P) Meningococcal B, OMV 2016-02-06 Completed [facility] ersity of 00:00:00 [facility] HPV9 2016-02-06 Completed [facility] 00:00:00 [facility] Meningococcal 2016-02-06 Completed [facility] Polysaccharide 00:00:00 [place] [facility] (groups A, C, Y and Branc h W-135) conjugate vaccine (MCV4P) Meningococcal B, OMV 2016-02-06 Completed [facility] ers[facility] of 00:00:00 [facility] HPV9 2016-02-06 Completed [facility] 00:00:00 [facility] Meningococcal 2016-02-06 Completed [facility] Polysaccharide 00:00:00 [place] [facility] (groups A, C, Y and Branc h W-135) conjugate vaccine (MCV4P) Meningococcal B, OMV 2016-02-06 Completed Univ ersity of 00:00:00 [facility] HPV9 2016-02-06 Completed [facility] 00:00:00 [facility] Meningococcal 2016-02-06 Completed [facility] Polysaccharide 00:00:00 [place] [facility] (groups A, C, Y and Branc h W-135) conjugate vaccine (MCV4P) Meningococcal B, OMV 2016-02-06 Completed [facility] ers[facility] 00:00:00 [facility] HPV9 2016-02-06 Completed [facility] 00:00:00 [facility] Meningococcal 2016-02-06 Completed [facility] Polysaccharide 00:00:00 [place] [facility] (groups A, C, Y and Branc h W-135) conjugate vaccine (MCV4P) Meningococcal B, OMV 2016-02-06 Completed Univ ersity of 00:00:00 [facility] HPV9 2016-02-06 Completed [facility] 00:00:00 [facility] Meningococcal 2016-02-06 Completed [facility] Polysaccharide 00:00:00 [place] [facility] (groups A, C, Y and Branc h W-135) conjugate vaccine (MCV4P) Meningococcal B, OMV 2016-02-06 Completed Univ ersity of 00:00:00 [facility] HPV9 2016-02-06 Completed [facility] 00:00:00 [facility] Meningococcal 2016-02-06 Completed [facility] Polysaccharide 00:00:00 [place] [facility] (groups A, C, Y and Branc h W-135) conjugate vaccine (MCV4P) Meningococcal B, OMV 2016-02-06 Completed Univ ersity of 00:00:00 [facility] HPV9 2016-02-06 Completed [facility] 00:00:00 [facility] Varicella 2014-04-28 Completed University of (varivax)(chicken 00:00:00 [...] Varicella 2014-04-28 Completed [facility] of (varivax)(chicken 00:00:00 [facility] edical pox) Branch TDAP 2014-02-20 Completed [facility] of 00:00:00 [facility] Branch TDAP 2014-02-20 Completed [facility] 00:00:00 [facility] TDAP 2014-02-20 Completed [facility] 00:00:00 [facility] TDAP 2014-02-20 Completed [facility] of 00:00:00 [facility] Branch TDAP 2014-02-20 Completed [facility] of 00:00:00 [facility] TDAP 2014-02-20 Completed [facility] of 00:00:00 [facility] TDAP 2014-02-20 Completed [facility] of 00:00:00 [facility] TDAP 2014-02-20 Completed [facility] of 00:00:00 [facility] TDAP 2014-02-20 Completed [facility] of 00:00:00 [facility] TDAP 2014-02-20 Completed [facility] of 00:00:00 [facility] TDAP 2014-02-20 Completed [facility] of 00:00:00 [facility] TDAP 2014-02-20 Completed [facility] of 00:00:00 [facility] TDAP 2014-02-20 Completed [facility] of 00:00:00 [facility] TDAP 2014-02-20 Completed [facility] of 00:00:00 [facility] TDAP 2014-02-20 Completed [facility] of 00:00:00 [facility] TDAP 2014-02-20 Completed [facility] of 00:00:00 [facility] TDAP 2014-02-20 Completed [facility] of 00:00:00 [facility] TDAP 2014-02-20 Completed [facility] of 00:00:00 [facility] TDAP 2014-02-20 Completed [facility] of 00:00:00 [facility] HPV 2010-01-03 Completed [facility] of 00:00:00 [facility] HPV 2010-01-03 Completed [facility] of 00:00:00 [facility] HPV 2010-01-03 Completed [facility] of 00:00:00 [facility] HPV 2010-01-03 Completed [facility] of 00:00:00 [facility] HPV 2010-01-03 Completed [facility] 00:00:00 [facility] HPV 2010-01-03 Completed [facility] 00:00:00 [facility] HPV 2010-01-03 Completed [facility] 00:00:00 [facility] HPV 2010-01-03 Completed [facility] 00:00:00 [facility] HPV 2010-01-03 Completed [facility] 00:00:00 [facility] HPV 2010-01-03 Completed [facility] 00:00:00 [facility] HPV 2010-01-03 Completed [facility] 00:00:00 [facility] HPV 2010-01-03 Completed [facility] 00:00:00 [facility] HPV 2010-01-03 Completed [facility] 00:00:00 [facility] HPV 2010-01-03 Completed [facility] 00:00:00 [facility] HPV 2010-01-03 Completed [facility] 00:00:00 [facility] HPV 2010-01-03 Completed [facility] 00:00:00 [facility] HPV 2010-01-03 Completed [facility] 00:00:00 [facility] HPV 2010-01-03 Completed [facility] 00:00:00 [facility] HPV 2010-01-03 Completed [facility] 00:00:00 [facility] H1n1 Vaccine 2009-09-25 Completed University o f 00:00:00 [facility] H1n1 Vaccine 2009-09-25 Completed University o f 00:00:00 [facility] H1n1 Vaccine 2009-09-25 Completed University o f 00:00:00 [facility] H1n1 Vaccine 2009-09-25 Completed University o f 00:00:00 [facility] H1n1 Vaccine 2009-09-25 Completed University o f 00:00:00 [facility] H1n1 Vaccine 2009-09-25 Completed University o f 00:00:00 [facility] H1n1 Vaccine 2009-09-25 Completed University o f 00:00:00 [facility] H1n1 Vaccine 2009-09-25 Completed University o f 00:00:00 [facility] H1n1 Vaccine 2009-09-25 Completed University o f 00:00:00 [facility] H1n1 Vaccine 2009-09-25 Completed University o f 00:00:00 [facility] H1n1 Vaccine 2009-09-25 Completed University o f 00:00:00 [facility] H1n1 Vaccine 2009-09-25 Completed University o f 00:00:00 [facility] H1n1 Vaccine 2009-09-25 Completed University o f 00:00:00 [facility] H1n1 Vaccine 2009-09-25 Completed [facility] o f 00:00:00 [facility] H1n1 Vaccine 2009-09-25 Completed University o f 00:00:00 [facility] H1n1 Vaccine 2009-09-25 Completed [facility] o f 00:00:00 [facility] H1n1 Vaccine 2009-09-25 Completed [facility] o f 00:00:00 [facility] H1n1 Vaccine 2009-09-25 Completed University o f 00:00:00 [facility] H1n1 Vaccine 2009-09-25 Completed University o f 00:00:00 [facility] Branch HPV 2009-06-06 Completed [facility] of 00:00:00 [facility] HPV 2009-06-06 Completed [facility] of 00:00:00 [facility] HPV 2009-06-06 Completed [facility] of 00:00:00 [facility] HPV 2009-06-06 Completed [facility] of 00:00:00 [facility] HPV 2009-06-06 Completed [facility] of 00:00:00 [facility] HPV 2009-06-06 Completed [facility] of 00:00:00 [facility] HPV 2009-06-06 Completed [facility] of 00:00:00 [facility] HPV 2009-06-06 Completed [facility] of 00:00:00 [facility] HPV 2009-06-06 Completed [facility] of 00:00:00 [facility] HPV 2009-06-06 Completed [facility] 00:00:00 [facility] HPV 2009-06-06 Completed [facility] of 00:00:00 [facility] HPV 2009-06-06 Completed [facility] of 00:00:00 [facility] HPV 2009-06-06 Completed [facility] of 00:00:00 [facility] HPV 2009-06-06 Completed [facility] of 00:00:00 [facility] HPV 2009-06-06 Completed [facility] 00:00:00 [facility] HPV 2009-06-06 Completed [facility] 00:00:00 [facility] HPV 2009-06-06 Completed [facility] 00:00:00 [facility] HPV 2009-06-06 Completed [facility] 00:00:00 [facility] HPV 2009-06-06 Completed [facility] 00:00:00 [facility] HEPATITIS A 2006-08-03 Completed [facility] 00:00:00 [facility] Varicella 2006-08-03 Completed [facility] (varivax)(chicken 00:00:00 [place] [facility] pox) [facility] HEPATITIS A 2006-08-03 Completed [facility] 00:00:00 [facility] Varicella 2006-08-03 Completed [facility] (varivax)(chicken 00:00:00 [place] [facility] pox) [facility] HEPATITIS A 2006-08-03 Completed [facility] 00:00:00 [facility] Varicella 2006-08-03 Completed [facility] (varivax)(chicken 00:00:00 [place] [facility] pox) [facility] HEPATITIS A 2006-08-03 Completed [facility] 00:00:00 [facility] Varicella 2006-08-03 Completed [facility] (varivax)(chicken 00:00:00 [place] [facility] pox) [facility] HEPATITIS A 2006-08-03 Completed [facility] 00:00:00 [facility] Varicella 2006-08-03 Completed [facility] (varivax)(chicken 00:00:00 [place] [facility] pox) [facility] HEPATITIS A 2006-08-03 Completed [facility] 00:00:00 [facility] Varicella 2006-08-03 Completed [facility] (varivax)(chicken 00:00:00 [place] [facility] pox) [facility] HEPATITIS A 2006-08-03 Completed [facility] 00:00:00 [facility] Varicella 2006-08-03 Completed [facility] (varivax)(chicken 00:00:00 [place] [facility] pox) [facility] HEPATITIS A 2006-08-03 Completed [facility] 00:00:00 [facility] Varicella 2006-08-03 Completed [facility] (varivax)(chicken 00:00:00 [place] [facility] pox) [facility] HEPATITIS A 2006-08-03 Completed [facility] 00:00:00 [facility] Varicella 2006-08-03 Completed [facility] (varivax)(chicken 00:00:00 [place] [facility] pox) [facility] HEPATITIS A 2006-08-03 Completed [facility] 00:00:00 [facility] Varicella 2006-08-03 Completed [facility] (varivax)(chicken 00:00:00 [place] [facility] pox) [facility] HEPATITIS A 2006-08-03 Completed [facility] 00:00:00 [facility] Varicella 2006-08-03 Completed [facility] (varivax)(chicken 00:00:00 [place] [facility] pox) [facility] HEPATITIS A 2006-08-03 Completed [facility] 00:00:00 [facility] Varicella 2006-08-03 Completed [facility] (varivax)(chicken 00:00:00 [place] [facility] pox) [facility] HEPATITIS A 2006-08-03 Completed [facility] 00:00:00 [facility] Varicella 2006-08-03 Completed [facility] (varivax)(chicken 00:00:00 [place] [facility] pox) [facility] HEPATITIS A 2006-08-03 Completed [facility] 00:00:00 [facility] Varicella 2006-08-03 Completed [facility] (varivax)(chicken 00:00:00 [place] [facility] pox) [facility] HEPATITIS A 2006-08-03 Completed [facility] 00:00:00 [facility] Varicella 2006-08-03 Completed [facility] (varivax)(chicken 00:00:00 [place] [facility] pox) [facility] HEPATITIS A 2006-08-03 Completed [facility] 00:00:00 [facility] Varicella 2006-08-03 Completed [facility] (varivax)(chicken 00:00:00 [place] [facility] pox) [facility] HEPATITIS A 2006-08-03 Completed [facility] of 00:00:00 [facility] Varicella 2006-08-03 Completed [facility] of (varivax)(chicken 00:00:00 [facility] edical pox) Branch HEPATITIS A 2006-08-03 Completed [facility] of 00:00:00 [facility] Varicella 2006-08-03 Completed [facility] of (varivax)(chicken 00:00:00 [facility] edical pox) Branch HEPATITIS A 2006-08-03 Completed [facility] of 00:00:00 [facility] Varicella 2006-08-03 Completed [facility] of (varivax)(chicken 00:00:00 [facility] edical pox) Branch DTAP 2003-12-01 Completed [facility] of 00:00:00 [facility] MMR 2003-12-01 Completed [facility] of 00:00:00 [facility] Polio (IPV/OPV) 2003-12-01 Completed Universit y of 00:00:00 [facility] DTAP 2003-12-01 Completed [facility] of 00:00:00 [facility] MMR 2003-12-01 Completed [facility] of 00:00:00 [facility] Polio (IPV/OPV) 2003-12-01 Completed Universit y of 00:00:00 [facility] DTAP 2003-12-01 Completed [facility] of 00:00:00 [facility] MMR 2003-12-01 Completed [facility] of 00:00:00 [facility] Polio (IPV/OPV) 2003-12-01 Completed Universit y of 00:00:00 [facility] DTAP 2003-12-01 Completed [facility] of 00:00:00 [facility] MMR 2003-12-01 Completed [facility] of 00:00:00 [facility] Polio (IPV/OPV) 2003-12-01 Completed Universit y of 00:00:00 [facility] DTAP 2003-12-01 Completed [facility] of 00:00:00 [facility] MMR 2003-12-01 Completed [facility] of 00:00:00 [facility] Polio (IPV/OPV) 2003-12-01 Completed Universit y of 00:00:00 [facility] DTAP 2003-12-01 Completed [facility] of 00:00:00 [facility] MMR 2003-12-01 Completed [facility] of 00:00:00 [facility] Polio (IPV/OPV) 2003-12-01 Completed Universit y of 00:00:00 [facility] DTAP 2003-12-01 Completed [facility] of 00:00:00 [facility] MMR 2003-12-01 Completed [facility] of 00:00:00 [facility] Polio (IPV/OPV) 2003-12-01 Completed Universit y of 00:00:00 [facility] DTAP 2003-12-01 Completed [facility] of 00:00:00 [facility] MMR 2003-12-01 Completed [facility] of 00:00:00 [facility] Polio (IPV/OPV) 2003-12-01 Completed Universit y of 00:00:00 [facility] DTAP 2003-12-01 Completed [facility] of 00:00:00 [facility] MMR 2003-12-01 Completed [facility] of 00:00:00 [facility] Polio (IPV/OPV) 2003-12-01 Completed Universit y of 00:00:00 [facility] DTAP 2003-12-01 Completed [facility] of 00:00:00 [facility] MMR 2003-12-01 Completed [facility] of 00:00:00 [facility] Polio (IPV/OPV) 2003-12-01 Completed Universit y of 00:00:00 [facility] DTAP 2003-12-01 Completed [facility] of 00:00:00 [facility] MMR 2003-12-01 Completed [facility] of 00:00:00 [facility] Polio (IPV/OPV) 2003-12-01 Completed Universit y of 00:00:00 [facility] DTAP 2003-12-01 Completed [facility] of 00:00:00 [facility] MMR 2003-12-01 Completed [facility] of 00:00:00 [facility] Polio (IPV/OPV) 2003-12-01 Completed Universit y of 00:00:00 [facility] DTaP, Unspecified 2003-12-01 Completed Univers ity of Formulation 00:00:00 [facility] IPV 2003-12-01 Completed [facility] of 00:00:00 [facility] DTAP 2003-12-01 Completed [facility] of 00:00:00 [facility] MMR 2003-12-01 Completed [facility] of 00:00:00 [facility] Polio (IPV/OPV) 2003-12-01 Completed Universit y of 00:00:00 [facility] DTaP, Unspecified 2003-12-01 Completed Univers ity of Formulation 00:00:00 [facility] IPV 2003-12-01 Completed [facility] of 00:00:00 [facility] DTAP 2003-12-01 Completed [facility] of 00:00:00 [facility] MMR 2003-12-01 Completed [facility] of 00:00:00 [facility] Polio (IPV/OPV) 2003-12-01 Completed Universit y of 00:00:00 [facility] DTaP, Unspecified 2003-12-01 Completed Univers ity of Formulation 00:00:00 [facility] IPV 2003-12-01 Completed [facility] of 00:00:00 [facility] DTAP 2003-12-01 Completed [facility] of 00:00:00 [facility] MMR 2003-12-01 Completed [facility] of 00:00:00 [facility] Polio (IPV/OPV) 2003-12-01 Completed Universit y of 00:00:00 [facility] DTaP, Unspecified 2003-12-01 Completed Univers ity of Formulation 00:00:00 [facility] IPV 2003-12-01 Completed [facility] of 00:00:00 [facility] DTAP 2003-12-01 Completed [facility] of 00:00:00 [facility] MMR 2003-12-01 Completed [facility] of 00:00:00 [facility] Polio (IPV/OPV) 2003-12-01 Completed Universit y of 00:00:00 [facility] DTaP, Unspecified 2003-12-01 Completed Univers ity of Formulation 00:00:00 [facility] IPV 2003-12-01 Completed [facility] of 00:00:00 [facility] DTAP 2003-12-01 Completed [facility] of 00:00:00 [facility] MMR 2003-12-01 Completed [facility] of 00:00:00 [facility] Polio (IPV/OPV) 2003-12-01 Completed Universit y of 00:00:00 [facility] DTaP, Unspecified 2003-12-01 Completed Univers ity of Formulation 00:00:00 [facility] IPV 2003-12-01 Completed [facility] of 00:00:00 [facility] DTAP 2003-12-01 Completed [facility] of 00:00:00 [facility] MMR 2003-12-01 Completed [facility] of 00:00:00 [facility] Polio (IPV/OPV) 2003-12-01 Completed Universit y of 00:00:00 [facility] DTaP, Unspecified 2003-12-01 Completed Univers ity of Formulation 00:00:00 [facility] IPV 2003-12-01 Completed [facility] of 00:00:00 [facility] DTAP 2003-12-01 Completed [facility] of 00:00:00 [facility] MMR 2003-12-01 Completed [facility] of 00:00:00 [facility] Polio (IPV/OPV) 2003-12-01 Completed Universit y of 00:00:00 [facility] DTaP, Unspecified 2003-12-01 Completed Univers ity of Formulation 00:00:00 [facility] IPV 2003-12-01 Completed [facility] of 00:00:00 [facility] Pneumococcal 7 2001-04-19 Completed University of Conjugate, [...] Branch DTAP 2001-02-08 Completed [facility] of 00:00:00 [facility] HIB 4 Dose Schedule 2001-02-08 Completed Unive rsity of 00:00:00 [facility] Pneumococcal 7 2001-02-08 Completed [facility] of Conjugate, PCV7 00:00:00 [place] [facility] (Prevnar7) Branch DTAP 2001-02-08 Completed [facility] 00:00:00 [facility] HIB 4 Dose Schedule 2001-02-08 Completed Unive rsity of 00:00:00 [facility] Pneumococcal 7 2001-02-08 Completed [facility] of Conjugate, PCV7 00:00:00 [place] [facility] (Prevnar7) Branch DTAP 2001-02-08 Completed [facility] 00:00:00 [facility] HIB 4 Dose Schedule 2001-02-08 Completed Unive rsity of 00:00:00 [facility] Pneumococcal 7 2001-02-08 Completed [facility] of Conjugate, PCV7 00:00:00 [place] [facility] (Prevnar7) Branch DTAP 2001-02-08 Completed [facility] of 00:00:00 [facility] HIB 4 Dose Schedule 2001-02-08 Completed Unive rsity of 00:00:00 [facility] Pneumococcal 7 2001-02-08 Completed [facility] of Conjugate, PCV7 00:00:00 [place] [facility] (Prevnar7) Branch DTAP 2001-02-08 Completed [facility] of 00:00:00 [facility] HIB 4 Dose Schedule 2001-02-08 Completed Unive rsity of 00:00:00 [facility] Pneumococcal 7 2001-02-08 Completed [facility] of Conjugate, PCV7 00:00:00 [place] [facility] (Prevnar7) Branch DTAP 2001-02-08 Completed [facility] of 00:00:00 [facility] HIB 4 Dose Schedule 2001-02-08 Completed Unive rsity of 00:00:00 [facility] Pneumococcal 7 2001-02-08 Completed University of Conjugate, PCV7 00:00:00 [place] [facility] (Prevnar7) [facility] DTAP 2001-02-08 Completed [facility] of 00:00:00 [facility] HIB 4 Dose Schedule 2001-02-08 Completed Unive rsity of 00:00:00 [facility] Pneumococcal 7 2001-02-08 Completed University of Conjugate, PCV7 00:00:00 [place] [facility] (Prevnar7) Branch DTAP 2001-02-08 Completed [facility] of 00:00:00 [facility] HIB 4 Dose Schedule 2001-02-08 Completed Unive rsity of 00:00:00 [facility] Pneumococcal 7 2001-02-08 Completed University of Conjugate, PCV7 00:00:00 [place] [facility] (Prevnar7) Branch DTAP 2001-02-08 Completed [facility] of 00:00:00 [facility] HIB 4 Dose Schedule 2001-02-08 Completed Unive rsity of 00:00:00 [facility] Pneumococcal 7 2001-02-08 Completed [facility] of Conjugate, PCV7 00:00:00 [place] [facility] (Prevnar7) Branch DTAP 2001-02-08 Completed [facility] of 00:00:00 [facility] HIB 4 Dose Schedule 2001-02-08 Completed Unive rsity of 00:00:00 [facility] Pneumococcal 7 2001-02-08 Completed University of Conjugate, PCV7 00:00:00 [place] [facility] (Prevnar7) Branch DTAP 2001-02-08 Completed [facility] of 00:00:00 [facility] HIB 4 Dose Schedule 2001-02-08 Completed Unive rsity of 00:00:00 [facility] Pneumococcal 7 2001-02-08 Completed [facility] of Conjugate, PCV7 00:00:00 [place] [facility] (Prevnar7) Branch DTAP 2001-02-08 Completed [facility] of 00:00:00 [facility] HIB 4 Dose Schedule 2001-02-08 Completed Unive rsity of 00:00:00 [facility] Pneumococcal 7 2001-02-08 Completed University of Conjugate, PCV7 00:00:00 [place] [facility] (Prevnar7) Branch DTaP, Unspecified 2001-02-08 Completed Univers ity of Formulation 00:00:00 [facility] Hib-HbOC 2001-02-08 Completed [facility] of 00:00:00 [facility] DTAP 2001-02-08 Completed [facility] of 00:00:00 [facility] HIB 4 Dose Schedule 2001-02-08 Completed Unive rsity of 00:00:00 [facility] Pneumococcal 7 2001-02-08 Completed University of Conjugate, PCV7 00:00:00 [place] [facility] (Prevnar7) Branch DTaP, Unspecified 2001-02-08 Completed Univers ity of Formulation 00:00:00 [facility] Hib-HbOC 2001-02-08 Completed [facility] of 00:00:00 [facility] DTAP 2001-02-08 Completed [facility] of 00:00:00 [facility] HIB 4 Dose Schedule 2001-02-08 Completed Unive rsity of 00:00:00 [facility] Pneumococcal 7 2001-02-08 Completed University of Conjugate, PCV7 00:00:00 [place] [facility] (Prevnar7) Branch DTaP, Unspecified 2001-02-08 Completed Univers ity of Formulation 00:00:00 [facility] Hib-HbOC 2001-02-08 Completed [facility] 00:00:00 [facility] DTAP 2001-02-08 Completed [facility] 00:00:00 [facility] HIB 4 Dose Schedule 2001-02-08 Completed Unive rsity of 00:00:00 [facility] Pneumococcal 7 2001-02-08 Completed [facility] of Conjugate, PCV7 00:00:00 [place] [facility] (Prevnar7) [facility] DTaP, Unspecified 2001-02-08 Completed [facility] Formulation 00:00:00 [facility] Hib-HbOC 2001-02-08 Completed [facility] 00:00:00 [facility] DTAP 2001-02-08 Completed [facility] of 00:00:00 [facility] HIB 4 Dose Schedule 2001-02-08 Completed [facility]ive rsity of 00:00:00 [facility] Pneumococcal 7 2001-02-08 Completed [facility] of Conjugate, PCV7 00:00:00 [facility] ical (Prevnar7) [place] DTaP, Unspecified 2001-02-08 Completed [facility] of Formulation 00:00:00 [facility] Hib-HbOC 2001-02-08 Completed [facility] of 00:00:00 [facility] DTAP 2001-02-08 Completed [facility] 00:00:00 [facility] HIB 4 Dose Schedule 2001-02-08 Completed [facility]ive rsity of 00:00:00 [facility] Pneumococcal 7 2001-02-08 Completed [facility] of Conjugate, PCV7 00:00:00 [facility] ical (Prevnar7) [place] DTaP, Unspecified 2001-02-08 Completed [facility] of Formulation 00:00:00 [facility] Hib-HbOC 2001-02-08 Completed [facility] of 00:00:00 [facility] DTAP 2001-02-08 Completed [facility] 00:00:00 [facility] HIB 4 Dose Schedule 2001-02-08 Completed [facility]ive rs[facility] of 00:00:00 [facility] Pneumococcal 7 2001-02-08 Completed [facility] of Conjugate, PCV7 00:00:00 [facility] ical (Prevnar7) Branch DTaP, Unspecified 2001-02-08 Completed [facility] it[facility] of Formulation 00:00:00 [facility] Hib-HbOC 2001-02-08 Completed [facility] of 00:00:00 [facility] DTAP 2001-02-08 Completed [facility] 00:00:00 [facility] HIB 4 Dose Schedule 2001-02-08 Completed [facility]ive rs[facility] of 00:00:00 [facility] Pneumococcal 7 2001-02-08 Completed [facility] of Conjugate, PCV7 00:00:00 [facility] ical (Prevnar7) Branch DTaP, Unspecified 2001-02-08 Completed [facility] it[facility] of Formulation 00:00:00 [facility] Hib-HbOC 2001-02-08 Completed [facility] of 00:00:00 [facility] Hep B, Adol or Pedi 2000-12-11 Completed Unive rsity of Dosage 00:00:00 [facility] MMR 2000-12-11 Completed [facility] 00:00:00 [facility] Polio (IPV/OPV) 2000-12-11 Completed [facility]it [facility] 00:00:00 [facility] Varicella 2000-12-11 Completed [facility] of (varivax)(chicken 00:00:00 [place] [facility] pox) [facility] Hep B, Adol or Pedi 2000-12-11 Completed [facility]ive [facility] of Dosage 00:00:00 [facility] MMR 2000-12-11 Completed [facility] 00:00:00 [facility] Polio (IPV/OPV) 2000-12-11 Completed [facility]it [facility] 00:00:00 [facility] Varicella 2000-12-11 Completed [facility] (varivax)(chicken 00:00:00 [place] [facility] pox) [facility] Hep B, Adol or Pedi 2000-12-11 Completed [facility] of Dosage 00:00:00 [facility] MMR 2000-12-11 Completed [facility] 00:00:00 [facility] Polio (IPV/OPV) 2000-12-11 Completed [facility] 00:00:00 [facility] Varicella 2000-12-11 Completed [facility] (varivax)(chicken 00:00:00 [place] [facility] pox) [facility] Hep B, Adol or Pedi 2000-12-11 Completed [facility] of Dosage 00:00:00 [facility] MMR 2000-12-11 Completed [facility] 00:00:00 [facility] Polio (IPV/OPV) 2000-12-11 Completed [facility]it [facility] 00:00:00 [facility] Varicella 2000-12-11 Completed [facility] (varivax)(chicken 00:00:00 [place] [facility] pox) [facility] Hep B, Adol or Pedi 2000-12-11 Completed [facility] of Dosage 00:00:00 [facility] MMR 2000-12-11 Completed [facility] 00:00:00 [facility] Polio (IPV/OPV) 2000-12-11 Completed [facility] 00:00:00 [facility] Varicella 2000-12-11 Completed [facility] (varivax)(chicken 00:00:00 [place] [facility] pox) [facility] Hep B, Adol or Pedi 2000-12-11 Completed [facility] of Dosage 00:00:00 [facility] MMR 2000-12-11 Completed [facility] 00:00:00 [facility] Polio (IPV/OPV) 2000-12-11 Completed [facility] 00:00:00 [facility] Varicella 2000-12-11 Completed [facility] (varivax)(chicken 00:00:00 [place] [facility] pox) [facility] Hep B, Adol or Pedi 2000-12-11 Completed [facility] of Dosage 00:00:00 [facility] MMR 2000-12-11 Completed [facility] 00:00:00 [facility] Polio (IPV/OPV) 2000-12-11 Completed [facility] 00:00:00 [facility] Varicella 2000-12-11 Completed [facility] (varivax)(chicken 00:00:00 [place] [facility] pox) [facility] Hep B, Adol or Pedi 2000-12-11 Completed [facility] of Dosage 00:00:00 [facility] MMR 2000-12-11 Completed [facility] 00:00:00 [facility] Polio (IPV/OPV) 2000-12-11 Completed [facility] 00:00:00 [facility] Varicella 2000-12-11 Completed [facility] (varivax)(chicken 00:00:00 [place] [facility] pox) [facility] Hep B, Adol or Pedi 2000-12-11 Completed [facility] of Dosage 00:00:00 [facility] MMR 2000-12-11 Completed [facility] 00:00:00 [facility] Polio (IPV/OPV) 2000-12-11 Completed [facility] 00:00:00 [facility] Varicella 2000-12-11 Completed [facility] (varivax)(chicken 00:00:00 [place] [facility] pox) [facility] Hep B, Adol or Pedi 2000-12-11 Completed [facility] of Dosage 00:00:00 [facility] MMR 2000-12-11 Completed [facility] 00:00:00 [facility] Polio (IPV/OPV) 2000-12-11 Completed [facility] 00:00:00 [facility] Varicella 2000-12-11 Completed [facility] (varivax)(chicken 00:00:00 [place] [facility] pox) [facility] Hep B, Adol or Pedi 2000-12-11 Completed [facility] of Dosage 00:00:00 [facility] MMR 2000-12-11 Completed [facility] 00:00:00 [facility] Polio (IPV/OPV) 2000-12-11 Completed [facility]it [facility] 00:00:00 [facility] Varicella 2000-12-11 Completed [facility] (varivax)(chicken 00:00:00 [place] [facility] pox) [facility] Hep B, Adol or Pedi 2000-12-11 Completed [facility] of Dosage 00:00:00 [facility] MMR 2000-12-11 Completed [facility] 00:00:00 [facility] Polio (IPV/OPV) 2000-12-11 Completed [facility] 00:00:00 [facility] Varicella 2000-12-11 Completed [facility] (varivax)(chicken 00:00:00 [place] [facility] pox) [facility] IPV 2000-12-11 Completed [facility] 00:00:00 [facility] Hep B, Adol or Pedi 2000-12-11 Completed [facility] of Dosage 00:00:00 [facility] MMR 2000-12-11 Completed [facility] 00:00:00 [facility] Polio (IPV/OPV) 2000-12-11 Completed [facility] 00:00:00 [facility] Varicella 2000-12-11 Completed [facility] (varivax)(chicken 00:00:00 [place] [facility] pox) [facility] IPV 2000-12-11 Completed [facility] 00:00:00 [facility] Hep B, Adol or Pedi 2000-12-11 Completed [facility] rs[facility] of Dosage 00:00:00 [facility] MMR 2000-12-11 Completed [facility] 00:00:00 [facility] Polio (IPV/OPV) 2000-12-11 Completed [facility] 00:00:00 [facility] Varicella 2000-12-11 Completed [facility] (varivax)(chicken 00:00:00 [place] [facility] pox) [facility] IPV 2000-12-11 Completed [facility] 00:00:00 [facility] Hep B, Adol or Pedi 2000-12-11 Completed [facility]ive [facility] of Dosage 00:00:00 [facility] MMR 2000-12-11 Completed [facility] 00:00:00 [facility] Polio (IPV/OPV) 2000-12-11 Completed [facility] 00:00:00 [facility] Varicella 2000-12-11 Completed [facility] (varivax)(chicken 00:00:00 [place] [facility] pox) [facility] IPV 2000-12-11 Completed [facility] 00:00:00 [facility] Hep B, Adol or Pedi 2000-12-11 Completed [facility]ive [facility] of Dosage 00:00:00 [facility] MMR 2000-12-11 Completed [facility] 00:00:00 [facility] Polio (IPV/OPV) 2000-12-11 Completed [facility] 00:00:00 [facility] Varicella 2000-12-11 Completed [facility] (varivax)(chicken 00:00:00 [place] [facility] pox) [facility] IPV 2000-12-11 Completed [facility] 00:00:00 [facility] Hep B, Adol or Pedi 2000-12-11 Completed [facility] of Dosage 00:00:00 [facility] MMR 2000-12-11 Completed [facility] 00:00:00 [facility] Polio (IPV/OPV) 2000-12-11 Completed [facility] 00:00:00 [facility] Varicella 2000-12-11 Completed [facility] (varivax)(chicken 00:00:00 [place] [facility] pox) [facility] IPV 2000-12-11 Completed [facility] 00:00:00 [facility] Hep B, Adol or Pedi 2000-12-11 Completed [facility] of Dosage 00:00:00 [facility] MMR 2000-12-11 Completed [facility] 00:00:00 [facility] Polio (IPV/OPV) 2000-12-11 Completed [facility] 00:00:00 [facility] Varicella 2000-12-11 Completed [facility] (varivax)(chicken 00:00:00 [place] [facility] pox) [facility] IPV 2000-12-11 Completed [facility] 00:00:00 [facility] Hep B, Adol or Pedi 2000-12-11 Completed [facility] of Dosage 00:00:00 [facility] MMR 2000-12-11 Completed [facility] 00:00:00 [facility] Polio (IPV/OPV) 2000-12-11 Completed [facility] 00:00:00 [facility] Varicella 2000-12-11 Completed [facility] (varivax)(chicken 00:00:00 [place] [facility] pox) [facility] IPV 2000-12-11 Completed [facility] 00:00:00 [facility] Hep B, Adol or Pedi 2000-09-02 Completed [facility] Dosage 00:00:00 [facility] Hep B, Adol or Pedi 2000-09-02 Completed [facility] Dosage 00:00:00 [facility] Hep B, Adol or Pedi 2000-09-02 Completed [facility] of Dosage 00:00:00 [facility] Hep B, Adol or Pedi 2000-09-02 Completed [facility] Dosage 00:00:00 [facility] Hep B, Adol or Pedi 2000-09-02 Completed [facility] Dosage 00:00:00 [facility] Hep B, Adol or Pedi 2000-09-02 Completed [facility] Dosage 00:00:00 [facility] Hep B, Adol or Pedi 2000-09-02 Completed [facility] Dosage 00:00:00 [facility] Hep B, Adol or Pedi 2000-09-02 Completed [facility] of Dosage 00:00:00 [facility] Hep B, Adol or Pedi 2000-09-02 Completed [facility] Dosage 00:00:00 [facility] Hep B, Adol or Pedi 2000-09-02 Completed [facility] of Dosage 00:00:00 [facility] Hep B, Adol or Pedi 2000-09-02 Completed [facility] of Dosage 00:00:00 [facility] Hep B, Adol or Pedi 2000-09-02 Completed [facility] of Dosage 00:00:00 [facility] Hep B, Adol or Pedi 2000-09-02 Completed [facility] of Dosage 00:00:00 [facility] Hep B, Adol or Pedi 2000-09-02 Completed [facility] of Dosage 00:00:00 [facility] Hep B, Adol or Pedi 2000-09-02 Completed [facility] of Dosage 00:00:00 [facility] Hep B, Adol or Pedi 2000-09-02 Completed [facility] of Dosage 00:00:00 [facility] Hep B, Adol or Pedi 2000-09-02 Completed [facility] of Dosage 00:00:00 [facility] Hep B, Adol or Pedi 2000-09-02 Completed [facility] Dosage 00:00:00 [facility] Hep B, Adol or Pedi 2000-09-02 Completed [facility] of Dosage 00:00:00 [facility] DTAP 2000-06-05 Completed [facility] 00:00:00 [facility] HIB 4 Dose Schedule 2000-06-05 Completed [facility] of 00:00:00 [facility] DTAP 2000-06-05 Completed [facility] 00:00:00 [facility] HIB 4 Dose Schedule 2000-06-05 Completed [facility] of 00:00:00 [facility] DTAP 2000-06-05 Completed [facility] 00:00:00 [facility] HIB 4 Dose Schedule 2000-06-05 Completed [facility] of 00:00:00 [facility] DTAP 2000-06-05 Completed [facility] 00:00:00 [facility] HIB 4 Dose Schedule 2000-06-05 Completed [facility] of 00:00:00 [facility] DTAP 2000-06-05 Completed [facility] 00:00:00 [facility] HIB 4 Dose Schedule 2000-06-05 Completed [facility] of 00:00:00 [facility] DTAP 2000-06-05 Completed [facility] 00:00:00 [facility] HIB 4 Dose Schedule 2000-06-05 Completed [facility] of 00:00:00 [facility] DTAP 2000-06-05 Completed [facility] 00:00:00 [facility] HIB 4 Dose Schedule 2000-06-05 Completed [facility] of 00:00:00 [facility] DTAP 2000-06-05 Completed [facility] 00:00:00 [facility] HIB 4 Dose Schedule 2000-06-05 Completed [facility] of 00:00:00 [facility] DTAP 2000-06-05 Completed [facility] 00:00:00 [facility] HIB 4 Dose Schedule 2000-06-05 Completed [facility] of 00:00:00 [facility] DTAP 2000-06-05 Completed [facility] 00:00:00 [facility] HIB 4 Dose Schedule 2000-06-05 Completed [facility] of 00:00:00 [facility] DTAP 2000-06-05 Completed [facility] 00:00:00 [facility] HIB 4 Dose Schedule 2000-06-05 Completed [facility] of 00:00:00 [facility] DTAP 2000-06-05 Completed [facility] 00:00:00 [facility] HIB 4 Dose Schedule 2000-06-05 Completed [facility] of 00:00:00 [facility] DTaP, Unspecified 2000-06-05 Completed Univers [facility] of Formulation 00:00:00 [facility] Hib-HbOC 2000-06-05 Completed [facility] 00:00:00 [facility] DTAP 2000-06-05 Completed [facility] 00:00:00 [facility] HIB 4 Dose Schedule 2000-06-05 Completed [facility] of 00:00:00 [facility] DTaP, Unspecified 2000-06-05 Completed [facility] Formulation 00:00:00 [facility] Hib-HbOC 2000-06-05 Completed [facility] 00:00:00 [facility] DTAP 2000-06-05 Completed [facility] 00:00:00 [facility] HIB 4 Dose Schedule 2000-06-05 Completed [facility]ive [facility] of 00:00:00 [facility] DTaP, Unspecified 2000-06-05 Completed [facility] Formulation 00:00:00 [facility] Hib-HbOC 2000-06-05 Completed [facility] 00:00:00 [facility] DTAP 2000-06-05 Completed [facility] 00:00:00 [facility] HIB 4 Dose Schedule 2000-06-05 Completed [facility] of 00:00:00 [facility] DTaP, Unspecified 2000-06-05 Completed [facility] Formulation 00:00:00 [facility] Hib-HbOC 2000-06-05 Completed [facility] 00:00:00 [facility] DTAP 2000-06-05 Completed [facility] 00:00:00 [facility] HIB 4 Dose Schedule 2000-06-05 Completed [facility] of 00:00:00 [facility] DTaP, Unspecified 2000-06-05 Completed [facility] Formulation 00:00:00 [facility] Hib-HbOC 2000-06-05 Completed [facility] 00:00:00 [facility] DTAP 2000-06-05 Completed [facility] 00:00:00 [facility] HIB 4 Dose Schedule 2000-06-05 Completed [facility] of 00:00:00 [facility] DTaP, Unspecified 2000-06-05 Completed [facility] Formulation 00:00:00 [facility] Hib-HbOC 2000-06-05 Completed [facility] 00:00:00 [facility] DTAP 2000-06-05 Completed [facility] 00:00:00 [facility] HIB 4 Dose Schedule 2000-06-05 Completed [facility] of 00:00:00 [facility] DTaP, Unspecified 2000-06-05 Completed [facility] Formulation 00:00:00 [facility] Hib-HbOC 2000-06-05 Completed [facility] 00:00:00 [facility] DTAP 2000-06-05 Completed [facility] 00:00:00 [facility] HIB 4 Dose Schedule 2000-06-05 Completed [facility] of 00:00:00 [facility] DTaP, Unspecified 2000-06-05 Completed [facility] Formulation 00:00:00 [facility] Hib-HbOC 2000-06-05 Completed [facility] 00:00:00 [facility] DTAP 2000-04-07 Completed [facility] 00:00:00 [facility] HIB 4 Dose Schedule 2000-04-07 Completed [facility] of 00:00:00 [facility] Hep B, Adol or Pedi 2000-04-07 Completed [facility] of Dosage 00:00:00 [facility] Polio (IPV/OPV) 2000-04-07 Completed [facility] 00:00:00 [facility] DTAP 2000-04-07 Completed [facility] 00:00:00 [facility] HIB 4 Dose Schedule 2000-04-07 Completed [facility] of 00:00:00 [facility] Hep B, Adol or Pedi 2000-04-07 Completed [facility] of Dosage 00:00:00 [facility] Polio (IPV/OPV) 2000-04-07 Completed [facility] 00:00:00 [facility] DTAP 2000-04-07 Completed [facility] 00:00:00 [facility] HIB 4 Dose Schedule 2000-04-07 Completed [facility] of 00:00:00 [facility] Hep B, Adol or Pedi 2000-04-07 Completed [facility] of Dosage 00:00:00 [facility] Polio (IPV/OPV) 2000-04-07 Completed [facility] 00:00:00 [facility] DTAP 2000-04-07 Completed [facility] 00:00:00 [facility] HIB 4 Dose Schedule 2000-04-07 Completed [facility] of 00:00:00 [facility] Hep B, Adol or Pedi 2000-04-07 Completed [facility] of Dosage 00:00:00 [facility] Polio (IPV/OPV) 2000-04-07 Completed [facility] 00:00:00 [facility] DTAP 2000-04-07 Completed [facility] 00:00:00 [facility] HIB 4 Dose Schedule 2000-04-07 Completed [facility] of 00:00:00 [facility] Hep B, Adol or Pedi 2000-04-07 Completed [facility] of Dosage 00:00:00 [facility] Polio (IPV/OPV) 2000-04-07 Completed [facility] 00:00:00 [facility] DTAP 2000-04-07 Completed [facility] 00:00:00 [facility] HIB 4 Dose Schedule 2000-04-07 Completed [facility] of 00:00:00 [facility] Hep B, Adol or Pedi 2000-04-07 Completed [facility] of Dosage 00:00:00 [facility] Polio (IPV/OPV) 2000-04-07 Completed [facility] 00:00:00 [facility] DTAP 2000-04-07 Completed [facility] 00:00:00 [facility] HIB 4 Dose Schedule 2000-04-07 Completed [facility] of 00:00:00 [facility] Hep B, Adol or Pedi 2000-04-07 Completed [facility] of Dosage 00:00:00 [facility] Polio (IPV/OPV) 2000-04-07 Completed [facility] 00:00:00 [facility] DTAP 2000-04-07 Completed [facility] 00:00:00 [facility] HIB 4 Dose Schedule 2000-04-07 Completed [facility] of 00:00:00 [facility] Hep B, Adol or Pedi 2000-04-07 Completed [facility] of Dosage 00:00:00 [facility] Polio (IPV/OPV) 2000-04-07 Completed [facility] 00:00:00 [facility] DTAP 2000-04-07 Completed [facility] 00:00:00 [facility] HIB 4 Dose Schedule 2000-04-07 Completed [facility] of 00:00:00 [facility] Hep B, Adol or Pedi 2000-04-07 Completed [facility] of Dosage 00:00:00 [facility] Polio (IPV/OPV) 2000-04-07 Completed [facility] 00:00:00 [facility] DTAP 2000-04-07 Completed [facility] 00:00:00 [facility] HIB 4 Dose Schedule 2000-04-07 Completed [facility] of 00:00:00 [facility] Hep B, Adol or Pedi 2000-04-07 Completed [facility] of Dosage 00:00:00 [facility] Polio (IPV/OPV) 2000-04-07 Completed [facility] 00:00:00 [facility] DTAP 2000-04-07 Completed [facility] 00:00:00 [facility] HIB 4 Dose Schedule 2000-04-07 Completed [facility] of 00:00:00 [facility] Hep B, Adol or Pedi 2000-04-07 Completed [facility] of Dosage 00:00:00 [facility] Polio (IPV/OPV) 2000-04-07 Completed [facility] 00:00:00 [facility] DTAP 2000-04-07 Completed [facility] 00:00:00 [facility] HIB 4 Dose Schedule 2000-04-07 Completed [facility] of 00:00:00 [facility] Hep B, Adol or Pedi 2000-04-07 Completed [facility] of Dosage 00:00:00 [facility] Polio (IPV/OPV) 2000-04-07 Completed [facility] 00:00:00 [facility] DTaP, Unspecified 2000-04-07 Completed [facility] Formulation 00:00:00 [facility] Hib-HbOC 2000-04-07 Completed [facility] 00:00:00 [facility] IPV 2000-04-07 Completed [facility] 00:00:00 [facility] DTAP 2000-04-07 Completed [facility] 00:00:00 [facility] HIB 4 Dose Schedule 2000-04-07 Completed [facility] 00:00:00 [facility] Hep B, Adol or Pedi 2000-04-07 Completed [facility] of Dosage 00:00:00 [facility] Polio (IPV/OPV) 2000-04-07 Completed [facility] 00:00:00 [facility] DTaP, Unspecified 2000-04-07 Completed [facility] Formulation 00:00:00 [facility] Hib-HbOC 2000-04-07 Completed [facility] 00:00:00 [facility] IPV 2000-04-07 Completed [facility] 00:00:00 [facility] DTAP 2000-04-07 Completed [facility] 00:00:00 [facility] HIB 4 Dose Schedule 2000-04-07 Completed [facility] 00:00:00 [facility] Hep B, Adol or Pedi 2000-04-07 Completed [facility] of Dosage 00:00:00 [facility] Polio (IPV/OPV) 2000-04-07 Completed [facility] 00:00:00 [facility] DTaP, Unspecified 2000-04-07 Completed [facility] Formulation 00:00:00 [facility] Hib-HbOC 2000-04-07 Completed [facility] 00:00:00 [facility] IPV 2000-04-07 Completed [facility] 00:00:00 [facility] DTAP 2000-04-07 Completed [facility] 00:00:00 [facility] HIB 4 Dose Schedule 2000-04-07 Completed [facility] 00:00:00 [facility] Hep B, Adol or Pedi 2000-04-07 Completed [facility] of Dosage 00:00:00 [facility] Polio (IPV/OPV) 2000-04-07 Completed [facility] 00:00:00 [facility] DTaP, Unspecified 2000-04-07 Completed [facility] Formulation 00:00:00 [facility] Hib-HbOC 2000-04-07 Completed [facility] 00:00:00 [facility] IPV 2000-04-07 Completed [facility] 00:00:00 [facility] DTAP 2000-04-07 Completed [facility] 00:00:00 [facility] HIB 4 Dose Schedule 2000-04-07 Completed [facility] 00:00:00 [facility] Hep B, Adol or Pedi 2000-04-07 Completed [facility] of Dosage 00:00:00 [facility] Polio (IPV/OPV) 2000-04-07 Completed [facility] 00:00:00 [facility] DTaP, Unspecified 2000-04-07 Completed [facility] Formulation 00:00:00 [facility] Hib-HbOC 2000-04-07 Completed [facility] 00:00:00 [facility] IPV 2000-04-07 Completed [facility] 00:00:00 [facility] DTAP 2000-04-07 Completed [facility] 00:00:00 [facility] HIB 4 Dose Schedule 2000-04-07 Completed [facility] of 00:00:00 [facility] Hep B, Adol or Pedi 2000-04-07 Completed Unive rsity of Dosage 00:00:00 [facility] Polio (IPV/OPV) 2000-04-07 Completed Universit y of 00:00:00 [facility] DTaP, Unspecified 2000-04-07 Completed Univers ity of Formulation 00:00:00 [facility] Hib-HbOC 2000-04-07 Completed University of 00:00:00 [facility] IPV 2000-04-07 Completed University of 00:00:00 [facility] DTAP 2000-04-07 Completed University of 00:00:00 [facility] HIB 4 Dose Schedule 2000-04-07 Completed Unive rsity of 00:00:00 [facility] Hep B, Adol or Pedi 2000-04-07 Completed Unive rsity of Dosage 00:00:00 [facility] Polio (IPV/OPV) 2000-04-07 Completed Universit y of 00:00:00 [facility] DTaP, Unspecified 2000-04-07 Completed Univers ity of Formulation 00:00:00 [facility] Hib-HbOC 2000-04-07 Completed University of 00:00:00 [facility] IPV 2000-04-07 Completed University of 00:00:00 [facility] DTAP 2000-04-07 Completed University of 00:00:00 [facility] HIB 4 Dose Schedule 2000-04-07 Completed Unive rsity of 00:00:00 [facility] Hep B, Adol or Pedi 2000-04-07 Completed Unive rsity of Dosage 00:00:00 [facility] Polio (IPV/OPV) 2000-04-07 Completed Universit y of 00:00:00 [facility] DTaP, Unspecified 2000-04-07 Completed Univers ity of Formulation 00:00:00 [facility] Hib-HbOC 2000-04-07 Completed University of 00:00:00 [facility] IPV 2000-04-07 Completed University of 00:00:00 [facility] DTAP 2000-01-21 Completed University of 00:00:00 [facility] HIB 4 Dose Schedule 2000-01-21 Completed Unive rsity of 00:00:00 [facility] Polio (IPV/OPV) 2000-01-21 Completed Universit y of 00:00:00 [facility] DTAP 2000-01-21 Completed University of 00:00:00 [facility] HIB 4 Dose Schedule 2000-01-21 Completed Unive rsity of 00:00:00 [facility] Polio (IPV/OPV) 2000-01-21 Completed Universit y of 00:00:00 [facility] DTAP 2000-01-21 Completed University of 00:00:00 [facility] HIB 4 Dose Schedule 2000-01-21 Completed Unive rsity of 00:00:00 [facility] Polio (IPV/OPV) 2000-01-21 Completed Universit y of 00:00:00 [facility] DTAP 2000-01-21 Completed University of 00:00:00 [facility] HIB 4 Dose Schedule 2000-01-21 Completed Unive rsity of 00:00:00 [facility] Polio (IPV/OPV) 2000-01-21 Completed Universit y of 00:00:00 [facility] DTAP 2000-01-21 Completed University of 00:00:00 [facility] HIB 4 Dose Schedule 2000-01-21 Completed Unive rsity of 00:00:00 [facility] Polio (IPV/OPV) 2000-01-21 Completed Universit y of 00:00:00 [facility] DTAP 2000-01-21 Completed University of 00:00:00 [facility] HIB 4 Dose Schedule 2000-01-21 Completed Unive rsity of 00:00:00 [facility] Polio (IPV/OPV) 2000-01-21 Completed Universit y of 00:00:00 [facility] DTAP 2000-01-21 Completed University of 00:00:00 [facility] HIB 4 Dose Schedule 2000-01-21 Completed Unive rsity of 00:00:00 [facility] Polio (IPV/OPV) 2000-01-21 Completed Universit y of 00:00:00 [facility] DTAP 2000-01-21 Completed University of 00:00:00 [facility] HIB 4 Dose Schedule 2000-01-21 Completed Unive rsity of 00:00:00 [facility] Polio (IPV/OPV) 2000-01-21 Completed Universit y of 00:00:00 [facility] DTAP 2000-01-21 Completed University of 00:00:00 [facility] HIB 4 Dose Schedule 2000-01-21 Completed Unive rsity of 00:00:00 [facility] Polio (IPV/OPV) 2000-01-21 Completed Universit y of 00:00:00 [facility] DTAP 2000-01-21 Completed University of 00:00:00 [facility] HIB 4 Dose Schedule 2000-01-21 Completed Unive rsity of 00:00:00 [facility] Polio (IPV/OPV) 2000-01-21 Completed Universit y of 00:00:00 [facility] DTAP 2000-01-21 Completed University of 00:00:00 [facility] HIB 4 Dose Schedule 2000-01-21 Completed Unive rsity of 00:00:00 [facility] Polio (IPV/OPV) 2000-01-21 Completed Universit y of 00:00:00 [facility] DTAP 2000-01-21 Completed University of 00:00:00 [facility] HIB 4 Dose Schedule 2000-01-21 Completed Unive rsity of 00:00:00 [facility] Polio (IPV/OPV) 2000-01-21 Completed Universit y of 00:00:00 [facility] DTaP, Unspecified 2000-01-21 Completed Univers ity of Formulation 00:00:00 [facility] Hib-HbOC 2000-01-21 Completed University of 00:00:00 [facility] IPV 2000-01-21 Completed University of 00:00:00 [facility] DTAP 2000-01-21 Completed University of 00:00:00 [facility] HIB 4 Dose Schedule 2000-01-21 Completed Unive rsity of 00:00:00 [facility] Polio (IPV/OPV) 2000-01-21 Completed Universit y of 00:00:00 [facility] DTaP, Unspecified 2000-01-21 Completed Univers ity of Formulation 00:00:00 [facility] Hib-HbOC 2000-01-21 Completed University of 00:00:00 [facility] IPV 2000-01-21 Completed University of 00:00:00 [facility] DTAP 2000-01-21 Completed University of 00:00:00 [facility] HIB 4 Dose Schedule 2000-01-21 Completed Unive rsity of 00:00:00 [facility] Polio (IPV/OPV) 2000-01-21 Completed Universit y of 00:00:00 [facility] DTaP, Unspecified 2000-01-21 Completed Univers ity of Formulation 00:00:00 [facility] Hib-HbOC 2000-01-21 Completed University of 00:00:00 [facility] IPV 2000-01-21 Completed University of 00:00:00 [facility] DTAP 2000-01-21 Completed University of 00:00:00 [facility] HIB 4 Dose Schedule 2000-01-21 Completed Unive rsity of 00:00:00 [facility] Polio (IPV/OPV) 2000-01-21 Completed Universit y of 00:00:00 [facility] DTaP, Unspecified 2000-01-21 Completed Univers ity of Formulation 00:00:00 [facility] Hib-HbOC 2000-01-21 Completed University of 00:00:00 [facility] IPV 2000-01-21 Completed University of 00:00:00 [facility] DTAP 2000-01-21 Completed University of 00:00:00 [facility] HIB 4 Dose Schedule 2000-01-21 Completed Unive rsity of 00:00:00 [facility] Polio (IPV/OPV) 2000-01-21 Completed Universit y of 00:00:00 [facility] DTaP, Unspecified 2000-01-21 Completed Univers ity of Formulation 00:00:00 [facility] Hib-HbOC 2000-01-21 Completed University of 00:00:00 [facility] IPV 2000-01-21 Completed University of 00:00:00 [facility] DTAP 2000-01-21 Completed University of 00:00:00 [facility] HIB 4 Dose Schedule 2000-01-21 Completed Unive rsity of 00:00:00 [facility] Polio (IPV/OPV) 2000-01-21 Completed Universit y of 00:00:00 [facility] DTaP, Unspecified 2000-01-21 Completed Univers ity of Formulation 00:00:00 [facility] Hib-HbOC 2000-01-21 Completed University of 00:00:00 [facility] IPV 2000-01-21 Completed University of 00:00:00 [facility] DTAP 2000-01-21 Completed University of 00:00:00 [facility] HIB 4 Dose Schedule 2000-01-21 Completed Unive rsity of 00:00:00 [facility] Polio (IPV/OPV) 2000-01-21 Completed Universit y of 00:00:00 [facility] DTaP, Unspecified 2000-01-21 Completed Univers ity of Formulation 00:00:00 [facility] Hib-HbOC 2000-01-21 Completed University of 00:00:00 [facility] IPV 2000-01-21 Completed University of 00:00:00 [facility] DTAP 2000-01-21 Completed University of 00:00:00 [facility] HIB 4 Dose Schedule 2000-01-21 Completed Unive rsity of 00:00:00 [facility] Polio (IPV/OPV) 2000-01-21 Completed Universit y of 00:00:00 [facility] DTaP, Unspecified 2000-01-21 Completed Univers ity of Formulation 00:00:00 [facility] Hib-HbOC 2000-01-21 Completed University of 00:00:00 [facility] IPV 2000-01-21 Completed University of 00:00:00 [facility] Vital Signs Vital Name Observation Time Observation Value Comments Source Systolic blood 2023-05-27 19:32:00 116 mm[Hg] Univer sity of pressure [facility] Diastolic blood 2023-05-27 19:32:00 68 mm[Hg] Unive rsity of pressure [facility] Heart rate 2023-05-27 19:32:00 79 /min [facility] Body temperature 2023-05-27 19:32:00 35.94 Sho [facility] Res[facility] rate 2023-05-27 19:32:00 22 /min [facility] Body height 2023-05-27 19:32:00 157.5 cm [facility] Body weight 2023-05-27 19:32:00 81.194 kg [facility] BMI 2023-05-27 19:32:00 32.74 kg/m2 [facility] Systolic blood 2023-04-29 19:42:00 102 mm[Hg] Univer sity of pressure [facility] Diastolic blood 2023-04-29 19:42:00 62 mm[Hg] Unive rsity of pressure [facility] Heart rate 2023-04-29 19:42:00 75 /min Universi ty [facility] Body temperature 2023-04-29 19:42:00 36.56 Sho [facility] ersity of [facility] Respiratory rate 2023-04-29 19:42:00 20 /min Univ ersity of [facility] Body height 2023-04-29 19:42:00 157.5 cm Universi ty [facility] Body weight 2023-04-29 19:42:00 80.332 kg Universi ty [facility] BMI 2023-04-29 19:42:00 32.39 kg/m2 Universi ty [facility] Systolic blood 2022-07-29 16:16:00 127 mm[Hg] Univer sity of pressure [facility] Diastolic blood 2022-07-29 16:16:00 71 mm[Hg] Unive rsity of pressure [facility] Heart rate 2022-07-29 16:16:00 77 /min [facility] ty [facility] Body temperature 2022-07-29 16:16:00 36.67 Sho Univ ersity [facility] Body height 2022-07-29 16:16:00 157.5 cm [facility] ty [facility] Body weight 2022-07-29 16:16:00 75.116 kg [facility] BMI 2022-07-29 16:16:00 30.29 kg/m2 [facility] Systolic blood 2022-07-01 19:56:00 115 mm[Hg] Univer sity of pressure [facility] Diastolic blood 2022-07-01 19:56:00 76 mm[Hg] Unive rsity of pressure [facility] Heart rate 2022-07-01 19:56:00 70 /min [facility]i ty [facility] Body temperature 2022-07-01 19:56:00 36.06 Sho Univ ersity of [facility] Respiratory rate 2022-07-01 19:56:00 18 /min Univ ersity [facility] Body height 2022-07-01 19:56:00 157.5 cm [facility]i ty [facility] Body weight 2022-07-01 19:56:00 76.613 kg [facility] BMI 2022-07-01 19:56:00 30.89 kg/m2 [facility] ty [facility] Systolic blood 2022-06-23 18:21:00 116 mm[Hg] Univer sity of pressure [facility] Diastolic blood 2022-06-23 18:21:00 76 mm[Hg] [facility] Heart rate 2022-06-23 18:21:00 80 /min [facility] Body temperature 2022-06-23 18:21:00 36.56 Sho [facility] Respiratory rate 2022-06-23 18:21:00 17 /min [facility] Body height 2022-06-23 18:21:00 157.5 cm [facility] Body weight 2022-06-23 18:21:00 76.913 kg [facility] BMI 2022-06-23 18:21:00 31.01 kg/m2 [facility] Procedures Procedure Date / Time Performing Clinician Source Performed TDAP VACCINE, >11 YRS, 2023-05-27 20:02:43 [facility] SECOND AND THIRD 2023-05-27 19:47:[address] [facility] ULTRASOUND [facility] POCT URINALYSIS W/O 2023-05-27 19:41:00 Jeannette Lizarraga [facility] SPECIFIC GRAVITY [facility] SECOND AND THIRD 2023-05-27 19:36:[address] [facility] ULTRASOUND Medical [facility] FREE T4 2023-04-29 20:51:00 [facility]RO[facility] STIMULATING 2023-04-29 20:51:00 Logan Villalobos [facility] HORMONE [facility] SICKLE CELL SCREEN 2023-04-29 20:51:00 Logan Villalobos [facility] CBC WITH DIFF 2023-04-29 20:51:00 [facility] RUBELLA SCREEN IGG 2023-04-29 20:51:00 Logan Villalobos [facility] VZV ANTIBODY SCREEN 2023-04-29 20:51:00 Logan Villalobos [facility] HEPATITIS B SURFACE 2023-04-29 20:51:00 Logan Villalobos [facility] ANTIGEN [facility] HCV ANTIBODY 2023-04-29 20:51:00 [facility] HB ABO GROUPING 2023-04-29 20:51:00 Chelsea [facility] GC & CHLAMYDIA 2023-04-29 20:51:00 Chelsea [facility] AMPLIFIED ASSAY [facility] FREE T3 2023-04-29 20:51:00 Chelsea [facility] HIV 1/2 AG-AB WITH 2023-04-29 20:51:00 [facility] SYPHILIS IGG/IGM 2023-04-29 20:51:00 [facility] POCT TEST 2023-04-29 19:45:00 Tash Villalobossie [facility] POCT URINALYSIS W/O 2023-04-29 19:45:00 Tash Villalobossie [facility] SPECIFIC GRAVITY [facility] ASSIGNMENT OF BENEFITS 2023-04-29 18:44:55 Doctor Unassigned, No [facility] Name Medical Branch FLU VACC ([id number]), 6 2022-07-29 17:10:33 Taylor Thurston [facility] MO-63 YRS, .5ML, IM, Medical Bra nch QUAD (FLUCELVAX) CHOLESTEROL 2022-07-29 17:05:00 Taylor Thurston [facility] FREE T4 2022-07-29 17:05:00 Taylor Thurston [facility] THYROID STIMULATING 2022-07-29 17:05:00 Taylor Thurston [facility] HORMONE [facility] CBC WITH DIFF 2022-07-29 17:05:00 Taylor Thurston [facility] GLYCOSYLATED HEMOGLOBIN 2022-07-29 17:05:00 Taylor Thurston [facility] (A1C) [facility] HCV ANTIBODY 2022-07-29 17:05:00 Taylor Thurston [facility] FREE T3 2022-07-29 17:05:00 Taylor Thurston [facility] HIV 1/2 AG-AB WITH 2022-07-29 17:05[facility]00 [facility] GALV ONLY - SYPHILIS 2022-07-29 17:05:00 Taylor Thurston [facility] IGG/IGM [facility] GC & CHLAMYDIA 2022-07-29 17:02:00 Taylor Thurston [facility] [place] AMPLIFIED ASSAY [facility] TRICHOMONAS AMPLIFIED 2022-07-29 17:02:00 [facility] Encounters Start End Encounter Admission Attending Care Care Encounter Source Date/Time Date/Time Type Type Clinicians Facility Department ID 2023-06-04 2023-06-04 Outpatient R [facility] [id number] Univers 08:00:00 08:00:00 POOJA [facility] 2023-05-28 2023-05-28 Telephone [facility] [id number] Univers 00:00:00 00:00:00 Jeannette [employer] 350.1.13.10 it y of REGIONAL [id number] Filipe as MATERNAL [phone] [facility] & CHILD [address] [place] [address] 2023-05-27 2023-05-27 Routine [facility] 1.2.840.114 [id number] Univers 16:00:00 16:00:00 Jeannette [employer] 350.1.13.10 i ty of Visit REGIONAL 4.2.7.2.686 [place] MATERNAL [id number] [address] 2023-05-27 2023-05-27 Outpatient P [facility] [id number] Univers 13:45:00 14:28:31 RITO [facility] 2023-05-27 2023-05-27 Deliverer Food Ultrasound, Sug-[facility] 1.2 .840.114 [id number] Univers 13:45:00 14:28:31 Visit Rito Camacho [employer] 350.1.13.1 0 ity of REGIONAL 4.2.7.2.686 [place] as MATERNAL [phone] [facility] & CHILD [address] [place] [address] 2023-05-18 2023-05-19 Emergency EM David, [facility] [id number] [facility] 22:15:00 02:29:00 [facility] 2023-05-14 2023-05-14 Case Chelsea [facility] 1.2.840.114 [id number] Univers 00:00:00 00:00:00 Management Logan [employer] 350.1.13.10 ity of REGIONAL 4.2.7.2.686 [place] as MATERNAL [phone] [facility] & CHILD [address] [place] [address] 2023-05-07 2023-05-07 Telephone Laurie NCSEPIDEH 1.2.840.114 [id number] Univers 00:00:00 00:00:00 Zahida [employer] 350.1.13.10 it y of REGIONAL 4.2.7.2.686 [place] MATERNAL [id number] [address] 2023-05-01 2023-05-01 Telephone Chelsea [facility] 1.2.840.114 [id number] Univers 00:00:00 00:00:00 Logan [employer] 350.1.13.10 it y of REGIONAL 4.2.7.2.686 [place] MATERNAL [id number] [address] 2023-04-30 2023-04-30 Telephone Chelsea [facility] 1.2.840.114 [id number] Univers 00:00:00 00:00:00 Logan [employer] 350.1.13.10 it y of REGIONAL 4.2.7.2.686 [place] as MATERNAL [id number] [address] 2023-04-29 2023-04-29 Outpatient R [facility] [id number] Univers 14:30:00 15:52:50 LOGAN ity of [facility] 2023-04-29 2023-04-29 Initial Chelsea [facility] 1.2.840.114 [id number] Univers 14:30:00 15:52:50 Logan [employer] 350.1.13.10 i ty of Visit REGIONAL 4.2.7.2.686 [place] as MATERNAL [id number] [facility] CHILD [address] [place] [address] 2023-04-29 2023-04-29 Orders Doctor NELLIE 1.2.840.114 [id number] Univers 00:00:00 00:00:00 Only Unassigned, ADRIANA 350.1.13.10 ity of [place] [address]2.686 [place] as [id number] [address] 2023-04-20 2023-04-20 Outpatient R LAURIE [facility] [id number] Univers 14:00:00 14:00:00 ZAHIDA KLEIN [facility] 2023-04-02 2023-04-02 Tele[facility] 1.2.840.114 [id number] Univers 00:00:00 00:00:00 Cecilia Storey [employer] 350.1.13.10 it y [address]7.2.686 [place] as MATERNAL [phone] [facility] ical & CHILD [address] [place] [address] 2023-04-01 2023-04-01 Outpatient R LAURIE [facility] [id number] Univers 14:30:00 14:30:00 ZAHIDA KLEIN [facility] 2022-12-05 2022-12-05 Outpatient R [facility] [id number] Univers 10:30:00 10:30:00 ANGY [facility] 2022-07-30 2022-07-30 Case [facility] 1.2.840.114 [id number] Univers 00:00:00 00:00:00 Management Taylor [employer] 350.1.13.[address]y [address]7.2.686 [place] as MATERNAL [phone] [facility] ical & CHILD [address] [place] [address] 2022-07-29 2022-07-29 Outpatient R [facility] [id number] Univers 10:30:00 12:16:25 TAYLOR THURSTON [facility] 2022-07-29 2022-07-29 Office [facility] 1.2.840.114 [id number] Univers 10:30:00 12:16:25 Visit Taylor [employer] 350.1.13.10 it y of [address]686 [place] MATERNAL [phone] [facility] & CHILD [address] [place] [address] 2022-07-01 2022-07-01 Outpatient R ROSA M OGDEN [facility] [id number] Univers 15:00:00 16:34:[address] [facility] 2022-07-01 2022-07-01 Office Pgy1 UNIVERSIT [id number] Univers 15:00:00 16:34:26 Visit Rosa M Ogden [facility] 350.1.13.10 ity of [facility] 4.2.7.2.686 [place] [id number] [address] 2022-06-23 2022-06-23 Outpatient R [facility] [id number] Univers 12:45:00 13:53:03 MAGI rosas [facility] 2022-06-23 2022-06-23 Office [facility] 1.2.840.114 [id number] Univers 12:45:00 13:53:03 Visit Magi Ang [employer] 350.1.13.10 ity [facility] 4.2.7.2.686 [place] as MATERNAL [id number] [address] 2022-06-23 2022-06-23 Telephone [facility] 1.2.840.114 [id number] Univers 00:00:00 00:00:00 Eduardo Bourgeois [employer] 350.1.13.10 ity of [facility] 4.2.7.2.686 [place] MATERNAL [id number] [address] 2022-06-19 2022-06-21 Outpatient P MARC [facility] GAURAV [id number] Univers 23:39:00 12:00:[address] [facility] 2022-06-19 2022-06-21 [facility] NELLIE Tran 1.2.840.114 [id number] Univers 23:39:00 12:00:00 Encounter Devika WRIGHT 350.1.13.10 ity [facility] 4.2.7.2.686 [place] [id number] [facility] [address] 2022-06-21 2022-06-21 Telephone CHRIS Zapata 1.2.840.114 [id number] Univers 00:00:00 00:00:00 Nataliia [facility] 350.1.13.10 ity of [facility] 4.2.7.2.[place] [id number] [facility] [address] 2022-06-19 2022-06-19 Outpatient Sukh [facility] [id number] Univers 16:15:00 16:57:46 MAGI hennessy o f [facility] 2022-06-19 2022-06-19 Office [facility] 1.2.840.114 [id number] Univers 16:15:00 16:57:46 Visit Magi Ang [employer] 350.1.13.10 ity of [facility] 4.2.7.2.686 [place] as MATERNAL [id number] [facility] & CHILD [address] [place] [address] 2022-06-17 2022-06-17 Telephone [facility] 1.2.840.114 [id number] Univers 00:00:00 00:00:00 Stephanie Ramos [employer] 350.1.13.10 it y of [facility] 4.2.7.2.686 [place] as MATERNAL [id number] [address] 2022-06-16 2022-06-16 Emergency [facility] ERT [id number] Univers 13:39:00 17:21:[address] [facility] 2022-06-16 2022-06-16 [facility] [id number] Univers 13:39:00 17:21:00 Sy QUARLES 350.1.13.10 i ty [facility] 4.2.7.2.686 [place] [facility] [id number] [facility] [address] 2022-06-16 2022-06-16 Emergency X [facility] ERT [id number] Univers 13:39:00 17:21:[address] [facility] 2022-06-12 2022-06-12 [facility] [id number] Univers 11:00:00 11:00:[address] [facility] 2022-05-23 2022-05-23 [facility]patient [facility] [id number] Univers 13:00:00 13:00:[address] [facility] 2022-05-23 2022-05-23 Outpatient [facility] [id number] Univers 13:00:00 13:00:[facility]22-[facility]-22 2022-05-22 Nurse Visit, Rashawn-Rmchp Nurse [facility] 1.2 .840.114 [id number] Univers 13:30:00 14:35:59 Visit Eduardo Walters [employer] 350.1.13. [address] [place] [id number] [place] as MATERNAL [id number] Med ical & CHILD [address] [place] [address] 2022-05-22 2022-05-22 Outpatient R [facility] [id number] Univers 13:30:00 13:30:00 EDUARDO hennessy o f [facility] 2022-05-16 2022-05-16 Outpatient R [facility] [id number] Univers 13:30:00 13:30:[address] [facility] 2022-05-16 2022-05-16 Outpatient Sukh [facility] [id number] Univers 13:30:00 13:30:[address] [facility] 2022-05-13 2022-05-15 Inpatient P TYRONE [facility] GAURAV [id number] Univers 13:01:00 22:44:[address] [facility] 2022-05-13 2022-05-15 [facility] NELLIE Gonzalez 1.2.800.559 [id number] Univers 13:01:00 22:44:00 Encounter Clementine WRIGHT [place] [address].2.7.2.686 [place] [phone] [address] 2022-05-13 2022-05-13 Surgery NELLIE Gonzalez 1.2.840.114 [id number] Univers 18:05:00 19:50:00 Clementine WRIGHT 350.1.13.10 i ty of HOSPITAL 4.2.7.2.686 [place] as [phone] [facility] [address] 2022-05-13 2022-05-13 Telephone Faculty, Adalberto BALLARD 1.2.840.114 [id number] Univers 00:00:00 00:00:00 ADRIANA 350.1.13.10 it y of [facility] 4.2.7.2.686 [place] [phone] [facility] [address] 2022-05-09 2022-05-09 [facility] [id number] Univers 13:45:00 14:42:[address] [facility] 2022-05-09 2022-05-09 Routine [facility] 1.2.725.719 [id number] Univers 13:45:00 14:42:55 Stephanie Ramos [employer] 350.1.13.10 i ty of Visit REGIONAL 4.2.7.2.686 [place] as MATERNAL [phone] Med ical & CHILD [address] [place] [address] 2022-05-05 2022-05-08 Hospital NELLIE Gonzalez 1.2.072.802 [id number] Univers 15:43:00 11:44:00 Encounter Spring Jaki ADRIANA 350.1.13.10 ity of [address]686 [place] [phone] [facility] [address] 2022-05-05 2022-05-08 Outpatient [facility] GAURAV [id number] Univers 15:43:00 11:44:[address] [facility] 2022-05-05 2022-05-08 Inpatient [facility] GAURAV [id number] Univers 15:43:00 11:44:[address] [facility] 2022-05-06 2022-05-06 Anesthesia NELLIE Cheung 1.2.840.114 [id number] Univers 20:01:04 20:01:04 Event Faiza ADRIANA 350.1.13.10 ity of [facility] 4.2.7.2.686 [place] [phone] [facility] [address] 2022-05-05 2022-05-05 Telephone Lucy [facility] 1.2.840.114 [id number] Univers 00:00:00 00:00:00 Stephanie Ramos [employer] 350.1.13.10 it y of REGIONAL 4.2.7.2.686 [place] MATERNAL [phone] [facility] ical & CHILD [address] [facility] 2022-05-05 2022-05-05 Orders Doctor NELLIE 1.2.840.114 [id number] Univers 00:00:00 00:00:00 Only Unassigned, ADRIANA 350.1.13.10 ity of [place] [facility] 4.2.7.2.686 [place] [phone] [address] 2022-05-01 2022-05-01 Abstract Klaus [facility] 1.2.840.114 [id number] Univers 00:00:00 00:00:00 Todd rodriguez [employer] 350.1.13.10 ity of [facility] 4.2.7.2.686 [place] as MATERNAL [phone] [facility] ical & [place]ILD [address] [place] [address] 2022-04-25 2022-04-25 Routine Stephanie Ayala [facility] 1.2.840. 114 [id number] Univers 14:15:00 14:30:00 Taylor Thurston [employer] 350.1.13.10 ity of Visit [facility] 4.2.7.2.686 [place] as MATERNAL [phone] [facility] & CHILD [address] [place] [address] 2022-04-25 2022-04-25 Outpatient P [facility] [id number] Univers 13:00:00 13:53:[address] [facility] 2022-04-25 2022-04-25 Outpatient P [facility] [id number] Univers 13:00:00 13:53:[address] [facility] 2022-04-25 2022-04-25 [employer] 1Mega Room [facility] 1.2. 840.114 [id number] Univers 13:00:00 13:53:31 Visit Rito Camacho [employer] 350.1.13.1 0 ity of REGIONAL 4.2.7.2.686 [place] as MATERNAL [phone] Med ical & CHILD [address] [facility] 2022-04-11 2022-04-11 Outpatient R [facility] [id number] Univers 12:45:00 13:52:[address] [facility] 2022-04-11 2022-04-11 [facility] 1.2.445.342 [id number] Univers 12:45:00 13:52:18 Stephanie Ramos [employer] 350.1.13.10 i ty of Visit [facility] 4.2.7.2.686 [place] as MATERNAL [id number] [facility] ica & CHILD [address] [place] [address] 2022-04-01 2022-04-02 Outpatient Randa WALLIS [facility] GAURAV [id number] Univers 20:21:00 05:13:[address] [facility] 2022-04-01 2022-04-02 Hospital NELLIE Wallis 1.2.840.114 [id number] Univers 20:21:00 05:13:00 Encounter Sammy WRIGHT 350.1.13.10 ity of [facility] 4.2.7.2.686 [place] as [phone] [address] 2022-04-02 2022-04-02 Telephone [facility] 1.2.840.114 [id number] Univers 00:00:00 00:00:00 Eduardo Bourgeois [employer] 350.1.13.10 ity of [facility] 4.2.7.2.686 [place] as MATERNAL [phone] [facility] ical & CHILD [address] [place] [address] 2022-03-31 2022-03-31 Telephone [facility] 1.2.840.114 [id number] Univers 00:00:00 00:00:00 Stephanie Ramos [employer] 350.1.13.10 it y of [facility] 4.2.7.2.686 [place] as MATERNAL [phone] [facility] ical & CHILD [address] [place] [address] 2022-03-28 2022-03-28 Outpatient P [facility] [id number] Univers 13:30:00 15:05:[address] [facility] 2022-03-28 2022-03-28 Outpatient P [facility] [id number] Univers 13:30:00 15:05:[address] [facility] 2022-03-28 2022-03-28 [employer] 1[facility] 1.2. 840.114 [id number] Univers 13:30:00 14:30:00 Visit Stephanie Ayala [employer] 350.1.13.10 ity of REGIONAL 4.2.7.2.686 [place] as MATERNAL [phone] Med ical & CHILD [address] [place] [address] 2022-03-28 2022-03-28 Routine Lucy [facility] 1.2.694.402 [id number] Univers 12:45:00 14:01:26 Stephanie Ramos [employer] 350.1.13.10 i ty of Visit REGIONAL 4.2.7.2.686 [place] as MATERNAL [phone] Med ical & CHILD [address] [place] [address] 2022-03-28 2022-03-28 [facility] [id number] Univers 13:30:00 13:30:00 [facility] 2022-02-28 2022-02-28 Outpatient P MAGGIE MENDES [facility] [id number] Univers 13:30:00 15:11:[address] [facility] 2022-02-28 2022-02-28 [employer] 1, Narcisojaki Us Room [facility] 1.2. 840.114 [id number] Univers 13:30:00 15:11:49 Visit Maggie Mendes [employer] 350.1.13.10 ity of REGIONAL 4.2.7.2.686 [place] as MATERNAL [phone] [facility] ical & CHILD [address] [place] [address] 2022-02-28 2022-02-28 Outpatient P MAGGIE MENDES [facility] [id number] Univers 13:30:00 13:30:[address] [facility] 2022-02-28 2022-02-28 Telephone [facility] 1.2.840.114 [id number] Univers 00:00:00 00:00:00 Eduardo Bourgeois [employer] 350.1.13.10 ity of REGIONAL 4.2.7.2.686 [place] as MATERNAL [phone] Med ical & CHILD 107 [facility] 2022-02-27 2022-02-27 Outpatient R TAYLOR [facility] [id number] Univers 10:45:00 12:27:03 TAYLOR THURSTON [facility] 2022-02-27 2022-02-27 Routine [facility] 1.2.840.114 [id number] Univers 10:45:00 12:27:03 Taylor [employer] 350.1.13.10 i ty of Visit REGIONAL 4.2.7.2.686 [place] as MATERNAL [phone] [facility] ical & CHILD [address] [place] [address] 2022-02-27 2022-02-27 Outpatient R TAYLOR THURST[facility] [id number] Univers 10:45:00 10:45:00 TAYLOR THURSTON [facility] 2022-02-13 2022-02-13 Abstract Anila-Redkey [facility] 1.2.840.114 [id number] Univers 00:00:00 00:00:00 Todd rodriguez [employer] 350.1.13.10 ity of REGIONAL 4.2.7.2.686 [place] as MATERNAL [phone] Med ical & CHILD [address] [place] [address] 2022-02-03 2022-02-03 Telephone Lucy [facility] 1.2.840.114 [id number] Univers 00:00:00 00:00:00 Stephanie Ramos [employer] 350.1.13.10 it y of REGIONAL 4.2.7.2.686 [place] as MATERNAL [phone] [facility] ical & CHILD [address] [place] [address] 2022-01-30 2022-01-30 Outpatient Randa [facility] [id number] Univers 14:00:00 15:26:30 SAMMY [facility] 2022-01-30 2022-01-30 [employer] 1, Mega Room [facility] 1.2. 840.114 [id number] Univers 14:00:00 15:26:30 Visit Stephanie Ayala [employer] 350.1.13.10 ity of Sammy Wallis REGIONAL 4.2.7.2.686 [place] MATERNAL [phone] [facility] [address] [facility] 2022-01-30 2022-01-30 Outpatient P [facility] [id number] Univers 14:00:00 14:00:[address] [facility] 2022-01-30 2022-01-30 Routine Lucy [facility] 1.2.075.713 [id number] Univers 12:45:00 13:16:02 Stephanie Ramos [employer] 350.1.13.10 i ty of Visit REGIONAL 4.2.7.2.686 [place] as MATERNAL [phone] [facility] [address] [facility] 2022-01-07 2022-01-07 Telephone Anila-Mark [facility] 1.2.840.114 [id number] Univers 00:00:00 00:00:00 us, Todd [employer] 350.1.13.10 ity of REGIONAL 4.2.7.2.686 [place] as MATERNAL [phone] [facility] [address] [place] [address] 2022-01-03 2022-01-03 Case Anila-Mark [facility] 1.2.840.114 [id number] Univers 00:00:00 00:00:00 Management us, Todd [employer] 350.1.13.10 ity of REGIONAL 4.2.7.2.686 [place] as MATERNAL [phone] [facility] [address] [place] [address] 2022-01-01 2022-01-01 Initial Anila-Redkey [facility] 1.2.840.114 [id number] Univers 08:30:00 09:33:59 us, Todd [employer] 350.1.13.10 ity of Visit REGIONAL 4.2.7.2.686 [place] as MATERNAL [phone] [facility] [address] [place] [address] 2022-01-01 2022-01-01 Outpatient R [facility] [id number] Univers 08:30:00 09:33:59 US, TODD it y of [facility] 2022-01-01 2022-01-01 Orders Doctor NELLIE 1.2.840.114 [id number] Univers 00:00:00 00:00:00 Only Unassigned, ADRIANA 350.1.13.10 ity of [place] [facility] 4.2.7.2.686 F[place]pe [phone] [facility] [address] 2021-05-21 2021-05-21 Emergency EM Linda Bañuelos HCAKW FCER [id number] [facility] 00:29:00 02:26:00 56 [facility] 2021-04-29 2021-04-29 Emergency EM Terrell [facility] JUAN [id number] [facility] 22:18:00 23:50:00 Nadiya 75 [facility] 2019-05-12 2019-05-12 Emergency [facility] 1.2.840.114 [id number] [facility] 15:30:32 18:09:00 Gentry Quarles 350.1.13.10 ity [facility] 4.2.7.2.686 [facility] [phone] [facility] [address] 2019-05-12 2019-05-12 Emergency [facility] 1.2.840.114 [id number] 15:30:32 18:09:00 Gentry Quarles 350.1.13.10 [place] 4.2.7.2.686 [place] [id number] 084 Results Test Description Test Time Test Comments Results Result Comments Source POCT URINALYSIS W/O SPECIFIC GRAVITY 2023-05-27 19:41:00 Test Item Value Reference Range Interpretation Comme nts POCT PH U (test code = 3254) 5 mg/dl 5-8 POCT U LEUK EST (test code = 3263) Negative Negative - Negative POCT U NIT (test code = 3262) Negative Negative - Negative POCT U PROT (test code = 3259) Trace Negative - Negative POCT U GLU (test code = 3256) Negative Negative - Negative POCT U KETONE (test code = 3258) Negative Negative - Negative POCT U BLD (test code = 3257) 250 Negative - Negative [facility] 00:27:00 Test Item Value Reference Range Interpretation Comments LIPASE (test code = 34 U/L 16-77 N Please n ote new normal LIP) range March 2023 THYROID STIMULATING [id number] 00:27:00 Test Item Value Reference Range Interpretation Comments THYROID STIMULATING 1.56 0.36-3.74 N Test Per formed in HORMONE (test code = MicroIn ternational Units/mL TSH) COMPREHENSIVE METABOLIC [id number] 00:27:00 Test Item Value Reference Range Interpretation Comments SODIUM (test code = 137 mEq/L 135-145 N NA) POTASSIUM (test code 3.4 mEq/L 3.5-5.0 L = K) CHLORIDE (test code 104 mEq/L 100-115 N = CL) CARBON DIOXIDE (test 24 mEq/L 22-31 N code = CO2) ANION GAP (test code 12.60 10-20 N = GAP) GLUCOSE (test code = 78 mg/dL 65-110 N GLU) BLOOD UREA NITROGEN 5 mg/dL 7-18 L (test code = BUN) CREATININE (test 0.6 mg/dL 0.5-1.0 N code = CREAT) TOTAL PROTEIN (test 6.5 gm/dL 6.3-8.2 N code = PROT) ALBUMIN (test code = 2.4 gm/dL 3.4-4.8 L ALB) CALCIUM (test code = 8.2 mg/dL 8.4-10.2 L CA) BILIRUBIN TOTAL 0.2 mg/dL 0.2-1.0 N (test code = BILT) SGOT/AST (test code 13 units/L 15-37 L = AST) SGPT/ALT (test code 10 units/L 12-78 L = ALT) ALKALINE PHOSPHATASE 99 units/L 46-116 N TOTAL (test code = ALKP) GLOMERULAR 129 ml/min >60 N The Glomerular FILTRATION RATE Filtration R ate is a (test code = GFR) calculated parameterbased on serum Creatinine, pat ient age and sex. GFR va luesless than 60 mL/min/ 1.73 square meters a re indicative ofCh ronic Kidney Disease. Values less than 15 mL/min/1.73squa re meters indicate Kidney failure. The calculation for GFR is based on the CK D-EPI (2020) calculat ion. This formulais race indifferent and is the recommended for etienne for GFRby the Natio nal Kidney Foundati on for Adults.The GFR will not calculate if th e sex is unknown or if thepatient's ag e is <18 years. [id number] 00:27:00 Test Item Value Reference Range Interpretation Comments AMYLASE (test code = KIKE) 122 units/L 30-110 H COVID 19 Asymptomatic IH [id number] 00:17:00 Test Item Value Reference Range Interpretation Comments COVID 19 NEGATIVE NEGATIVE This test has b een Asymptomatic IH AG authorize d only for the (test code = detection ofpro teins from COVNONPUIAG) SARS-CoV-2, not for any other viruses orpathogens. Ne gative results should be treated as presumptive andconfirmed wi th a molecular assay , if necessary for patientmanageme nt. Negative result s do not rule out COVID- 19 andshould not b e used as the sole basis for treatment orpat ient management deci sions, including infec tion controldecision s. Negative result s should be considered i n thecontext of a patient's recent exposure s, history and thepresence of clinical signs and symptoms consis tent withCOVID-19. T his test has not been FD A cleared or approved; th e test hasbeen authori katelyn by FDA under an Emerge ncy Use Authorization(E UA) for use by laborato jonatan certified under the CLIA thatmeet the re quirements to perform mode rate, high or waivedcomple xity tests. This tona t is authorized for use at thePoint of Car e (POC), i.e., in patien t care settingsoperati ng under a CLIA Certificat e of Waiver, Certifi christ ofCompliance, o r Certificate of Accreditation. This test is only authori zed for the duration of thedeclaration that circumstances e xist justifying theauthorizatio n of emergency use o f in vitro diagnostic test sfor detection and/o r diagnosis of CO VID-19 under Prpbenm89 4(b)(1) of the Act, 21 U.S .C. 360bbb-3(b)(1), unless theauthorizatio n is terminated or r evoked sooner. DRUGS OF ABUSE [id number] 00:10:00 Test Item Value Reference Range Interpretation Comments UR COCAINE (test code = NEGATIVE NEGATIVE DETE CTION CUT OFF: COCAU) 150 ng/mL UR CANNABINOIDS (test NEGATIVE NEGATIVE DETECT ION CUT OFF: code = CANU) 50 ng/mL UR AMPHETAMINE (test code NEGATIVE NEGATIVE DE TECTION CUT OFF: = AMPHU) 500 ng/mL UR BARBITURATE QUAL (test NEGATIVE NEGATIVE DE TECTION CUT OFF: code = BARBQLU) 200 ng/mL UR BENZODIAZEPINE (test NEGATIVE NEGATIVE DETE CTION CUT OFF: code = BENZU) 150 ng/mL UR OPIATES QUAL (test NEGATIVE NEGATIVE DETECT ION CUT OFF: code = OPIAQLU) 100 ng/mL UR PHENCYCLIDINE (PCP) NEGATIVE NEGATIVE DETEC TION CUT OFF: (test code = PHENCU) 25 ng/m L - US RETROPERITONEAL [id number] 00:00:00 [facility] 2000 Sex: F Patient Name: EVGENY LOPEZ Unit No: [id number] EXAMS: CPT CODE: [id number] US RETROPERITONEAL COM [id number] INFORMATION: Exam: US Retroperitoneal; Complete; Kidneys and Bladder Exam date and time: 05/19/2023 1:53 AM Age: 22 years old Clinical indication: Other: Hematuria; Abdominal pain; Flank; Right; ; Additional info: RT flamk pain, hematuria TECHNIQUE: Imaging protocol: Real-time ultrasoun d of the retroperitoneum with image documentation. Complete exam focused on the kidneys and bladder.COMPARISON: US FLW UP 05/19/2023 1:40 AM FINDINGS: Right kidney: 9.9 x 4.6 x 5.8 cm. No stones. Nonspecific minimal hydronephrosis. Left kidney: 11.6 x 5.1 x 5.1 cm. No stones. No hydronephrosis. Urinary bladder: Bilateral ureteral jets are identified. IMPRESSION: Minimal right hydronephrosis may represent physiology. Distal obstruction can not be excluded. Please note that laboratory values and clinical exam show higher sensitivity for acute pyelonephritis than imaging at 0256 Reported and signed by: Edwardo Barfield MD CC:Chantell Hernandez Technologist: Hailey Garcia RDMS Probe: Trnscrbd D/ (255) GCD.CPS Orig Print D/T: S: 05/19/2023 (025) [facility] NAME: EVGENY LOPEZ Radiology Department PHYS: Chantell Pritchard MD [address] : 2000 AGE: 22 SEX: F [place] [address] LOC: JayeshLJ PHONE #: [phone] EXAM DATE: 05/19/2023 STATUS: DEP ER FAX #: [phone] RAD NO: Page 1 Signed Report Patient Name: EVGENY LOPEZ Unit No: [id number] EXAMS: CPTCODE: [id number] US RETROPERITONEAL COM [id number] (Continued) [facility] NAME: LOPEZEVGENY Radiology Department PHYS: Chantell Pritchard MD [address] : 2000 AGE: 22 SEX:F [place] [address] LOC: JayeshLJ PHONE #: [phone] EXAM DATE: 05/19/2023STATUS: DEP ER FAX #: [phone] RAD NO: Page 2 Signed Report- US FLW [id number] 00:00:00 [facility] : 2000 Sex: F Patient Name: EVGENY LOPEZ Unit No: [id number] EXAMS: CPT CODE: [id number] [place] [id number] PROCEDURE INFORMATION: Exam: US ; Follow up Exam date and time: 05/19/2023 1:40 AM Age: 22 years old Clinical indication: Screening exam; Other: Limited care; ; Prior surgery; Surgery date: 6+ months; Surgery type: C/s LABS AND CLINICAL REPORTS: Gestational age (Established): 26w 6 d Estimated due date (Established): 08/19/2023 TECHNIQUE: Imaging protocol: Transabdominal ultrasound of the uterus, real time with image documentation. COMPARISON: No relevant prior studies available. FINDINGS: EGA by dates: 26 weeks 6 day EGA by current US: 28 week 3 day Gestation: Chatterjee Presentation: Cephalic heart rate: 149 bpm Amniotic fluid index: 18 cm Placenta: Posterior, non previa Cervical length: 3.6 cm no endocervical fluid measurements: BPD: 7.28 cm, 29 week1 day HC: 26.54 cm, 28 weeks 6 days AC: 23.74 cm, 28 week 0 day FL: 5.2 a cm, 28 weeks 1 day Ratios:FL/BPD: 72% FL/AC: 22% HC/AC: 1.12 Estimated weight: 1191+/- 178 g anatomy: Limited survey for biometric shows no acute abnormality Right ovary: 2.9 x 1.8 x 1.2 cm. Normal appearance.Left ovary: 3.1 x 1.1 x 2.2 cm, normal appearance. IMPRESSION: [facility] NAME: EVGENY LOPEZ Radiology Department PHYS: Chantell Pritchard MD [address] : 2000 AGE: 22 SEX: F [place] [address] LOC: JayeshLJ PHONE #: [phone] EXAM DATE: 05/19/2023 STATUS: DEP ER FAX #: [phone] RAD NO: Page 1 Signed Report (CONTINUED) Patient Name: EVGENY LOPEZ Unit No: [id number] EXAMS: CPT CODE: [id number] US FLW UP 18438 (Continued) Viable intrauterine gestation in cephalic presentation. Composite ultrasound gestational age is 28 weeks 3 days with heart rate of 149 bpm. No acute abnormality demonstrated. at 0312 Reported and signed by: Srinivas Grace MD CC: Chantell Hernandez Technologist: Hailey Garcia RDMS Probe: Trnscrbd D/ (311) GCD.CPS Orig Print D/T: S: 05/19/2023 (312) [facility] NAME: TAMEKARASHEEDACHICO Radiology Department PHYS: Chantell Pritchard MD [address] : 2000 AGE: 22 SEX: F [place] [address] LOC: JayeshLJ PHONE #: [phone] EXAM DATE: 05/19/2023 STATUS: DEP ER FAX #: [phone] RAD NO: Page 2 Signed Report Patient Name: EVGENY LOPEZ Unit No: [id number] EXAMS: CPT CODE: [id number] [place] [id number] (Continued) [facility] NAME: EVGENY LOPEZ Radiology Department PHYS: Chantell Pritchard MD [address] : 2000 AGE: 22 SEX: F [place] [address] LOC: JayeshLJ PHONE #: [phone] EXAM DATE: 05/19/2023 STATUS: DEP ER FAX #: [phone] RAD NO: Page 3 Signed ReportCBC W/AUTO [id number] 23:50:00 Test Item Value Reference Range Interpretation Comments WHITE BLOOD CELL (test code = WBC) 6.3 K/mm3 6.5-12.3 L RED BLOOD CELL (test code = RBC) 3.34 M/mm3 3.51-4.69 L HEMOGLOBIN (test code = HGB) 8.9 g/dL 10.1-13.8 L HEMATOCRIT (test code = HCT) 27.2 % 32.5-41.8 L MEAN CELL VOLUME (test code = MCV) 81.4 fL 84.6-96.6 L MEAN CELL HGB (test code = MCH) 26.6 pg 27.3-33.9 L MEAN CELL HGB CONCETRATION (test 32.7 gm/dL 32.0-34.2 N code = MCHC) RED CELL DISTRIBUTION WIDTH (test 12.4 % 12.2-16.3 N code = RDW) PLATELET COUNT (test code = PLT) 201 K/mm3 134-363 N MEAN PLATELET VOLUME (test code = 10.6 fL 9.2-12.7 N MPV) NEUTROPHIL % (test code = NT%) 72.2 % 57.9-77.3 N LYMPHOCYTE % (test code = LY%) 18.2 % 14.5-29.7 N MONOCYTE % (test code = MO%) 7.9 % 3.6-10.2 N EOSINOPHIL % (test code = EO%) 0.2 % 0.0-3.0 N BASOPHIL % (test code = BA%) 0.2 % 0.1-0.9 N NEUTROPHIL # (test code = NT#) 4.6 K/mm3 LYMPHOCYTE # (test code = LY#) 1.2 K/mm3 MONOCYTE # (test code = MO#) 0.5 K/mm3 EOSINOPHIL # (test code = EO#) 0.01 K/mm3 BASOPHIL # (test code = BA#) 0.0 K/mm3 RBC MORPHOLOGY REQUIRED (test code NORMAL NORMAL = RBCM) PLATELET MORPHOLOGY REQUIRED (test NORMAL NORMAL code = PLTMR) URINALYSIS [id number] 23:15:00 Test Item Value Reference Range Interpretation Comments UA COLOR (test code = COLU) ODETTE YELLOW A UA APPEARANCE (test code = CLOUDY CLEAR A APPU) UA GLUCOSE DIPSTICK (test code NEGATIVE NEG = DGLUU) UA BILIRUBIN DIPSTICK (test NEGATIVE NEG code = BILU) UA KETONE DIPSTICK (test code = NEGATIVE NEG KETU) UA SPECIFIC GRAVITY (test code 1.026 1.001-1.035 N = SGU) UA BLOOD DIPSTICK (test code = 1+ NEG A SERA) UA PH DIPSTICK (test code = 5.0 5-9 MAGNUS) UA PROTEIN DIPSTICK (test code 1+ NEG A = PROU) UA UROBILINIOGEN DIPSTICK (test 4.0 mg/dL NEG A code = URO) UA NITRITE DIPSTICK (test code NEG NEG = ANA) UA LEUKOCYTE ESTERASE DIPSTICK NEG NEG (test code = LEUU) UA WBC (test code = WBCU) 6-10 #/hpf NONE SEEN A UA RBC (test code = RBCU) 21-30 #/hpf NONE SEEN A UA EPITHELIAL CELLS (test code MANY #/HPF RARE-FEW A = EPIU) UA BACTERIA (test code = BACU) MODERATE /HPF RARE-FEW A UA MUCUS (test code = MUCU) 4+ NONE SEEN URINE SAMPLE: CLEAN CATCHPOCT URINALYSIS W/O SPECIFIC [id number] 19:45:00 Test Item Value Reference Range Interpretation Comments [...] code = 3257) trace Negative - Negative [facility] [id number] 19:45:00 Test Item Value Reference Range Interpretation Comments POCT PREG (test code = 1605) Positive On board controls acceptable with C Yes Line (test code = 3571) POCT PREG LOT # (test code = 3575) POCT PREG TEST DATE (test code = 3576) [facility]OL[facility] [id number] 02:10:00 Test Item Value Reference Range Interpretation [...] UNITS/L 46-116 N (test code = ALKP) [id number] 02:10:00 Test Item Value Reference Range Interpretation Comments LIPASE (test code = LIP) 122 UNITS/L 73-393 N CBC W/AUTO [id number] 01:47:00 Test Item Value Reference Range Interpretation [...] BA#) 0.03 x10 3/uL 0.0-0.1 N URINALYSIS [id number] 01:02:00 Test Item Value Reference Range Interpretation [...] NONE SEEN A = SPERMU) UR HCG [id number] 01:02:00 Test Item Value Reference Range Interpretation Comments UR HCG QUAL (test code NEGATIVE NEGATIVE HCG10 42016 12-09-2022 = HCGQLU) URINALYSIS [id number] 00:57:00 Test Item Value Reference Range Interpretation [...] /HPF NEGATIVE code = BACU) UR HCG [id number] 00:57:00 Test Item Value Reference Range Interpretation Comments UR HCG QUAL (test code NEGATIVE NEGATIVE HCG10 33659 12-09-2022 = HCGQLU) URINALYSIS [id number] 00:55:00 Test Item Value Reference Range Interpretation [...] /HPF NEGATIVE code = BACU) UR HCG [id number] 00:55:00 Test Item Value Reference Range Interpretation Comments UR HCG QUAL (test code = HCGQLU) NEGATIVE UA RFLX MICR CULT IF [id number] 23:56:00 Test Item Value Reference Range Interpretation [...] = UACULT) Indication for culture: Dysuria/FrequencyUR HCG [id number] 23:56:00 Test Item Value Reference Range Interpretation [...] = UACULT) Indication for culture: Dysuria/FrequencyUR HCG [id number] 23:42:00 Test Item Value Reference Range Interpretation [...] = UACULT) Indication for culture: Dysuria/FrequencyUR HCG [id number] 23:41:00 Test Item Value Reference Range Interpretation Comments UR HCG QUAL (test code = HCGQLU) NEGATIVE Indication for culture: Dysuria/Frequency Notes Date/Time Note Provider Source 2023-06-02 [facility] 13:18:58-00:00 Patient sent mychart message on 06/02/2023 regarding results for iron. Electronically signed by Nani Wright at 0 06/02/2023 1:19 PM CDT 2023-06-02 Formatting of this note might be differe nt from the original. Katelyn Wright [facility] 11:42:06-00:00 Evgeny Lopez is a 22 year old female returning missed call Electronically signed by Katelyn Wright at 05/13 11:44 AM CDT 2023-06-02 [facility] 10:26:42-00:00 Attempt #2, pt DNA and a VM was left for pt Electronically signed by Nani Wright at 0 06/02/2023 10:26 AM T 2023-05-28 [facility] 10:49:13-00:00 Attempt #1, pt did not answer and a VM was left for pt Electronically signed by Nani Wright at 0 05/28/2023 10:49 AM T 2023-05-28 [facility] 09:23:23-00:00 Patient's lab is showing low hemoglobin level of 8.7 which has decreased from 8.8. Please emphasize to pt the need to take vitamins and iron therapy PO daily, eat iron rich foods such as meat, eggs, dark green leafy vegetables, beans and pryor it milk intake. Also advise patient not to t pavan iron the same time of day as vitamins. Thank you! T 2023-05-18 [facility] 23:01:00-00:00 [facility] ([facility]) EMERGENCY PROVIDER REPORT REPORT#:[id number] REPORT STATUS: Signed DATE:05/18/23 TIME: 2301 PATIENT: EVGENY LOPEZ UNIT #: [id number] ROOM/BED: AGE: 22 SEX: F PCP PHYS: Chantell Hernandez MD SERVICE AUTHOR: Chantell Hernandez MD * ALL edits or amendments must be made on the [employer] document * See Addendum LJ History Chief complaint: diarrhea, nausea and vomiting, abd pain HPI: 22 yo (1 , 1 twins) at 26 5/ 7 wks, EDC 08/19, PNC at [facility], but only recently figured out that she wa s . c/o abd pain that started yesterday with N/V/D --she thought she had food poisoning, then today it' s continued. She denies sick contacts. She lives with her young children who are fine. She denies any recnet abx or unusual foods. The painis on the sides and is sharp and shooting--comes an d goes. And some on the bottom--the same. She denies contractions/cramping. No pe lvic pressure. She vomited 2x today, non bloody. She had had diarrhea all day, ev en when she doesn't eat, watery, non bloody, last at 8 pm. She would like someth ing for nausea, bot not for diarrhea--not bothering her right now. She would like something for pain. She has not been able to eat today--she tried some mashed potatoes. +FM, -VB, -ROM. Occasional CERNA, no fever, no dysuria, some body aches. PMHs hypothyroid PSHx cs MEds thyroid med, hasn't st arted PNV yet, and would notbe able to keep down at present NKDa Soc single, no habits, no DU FHx +DM Medications: Home Medications: Medication Dose/Rte/Freq Days Qty Entered Last Max Daily Dose Reviewed DICYCLOMINE (BENTYL) 20 MG PO 30 05/21/21 Strength: 20 MG TAB QID PRN PRN 0223 abdominal pain FAMOTIDINE (PEPCID) 40 MG PO BEDTIME 30 1 Strength: 40 MG TAB 0223 IBUPROFEN (MOTRIN) 600 MG PO 30 04/29/21 Strength: 600 MG TAB QID PRN PRN PAIN 2340 NITROFURANTOIN/NITROFURAN 100 MG PO BID 14 04/12 01/30 MAC 0832 (MACROBID) Strength: 100 MG CAP Current Hospital Medications: Central Nervous System Agents Sig/Wenceslao Start time Last Medication Dose Route Stop Time Status Admin Morphine Sulfate 4 MG Q4H PRN PRN 05/18 2300 AC (Morphine Sulfate) IV 07/17 225 Electrolytic, Caloric, And Traci Sig/Wenceslao Start time Last Medication Dose Route Stop Time Status Admin Lactated Ringer's 1,000 ML BOLUS ONCE ONE 05/18 2300 AC (LACTATED RINGERS) IV 05/18 2359 Gastrointestinal Drugs Sig/Wenceslao Start time Last Medication Dose Route Stop Time Status Admin Ondansetron HCl 4 MG ONCE ONE 05/18 2300 DC (ZOFRAN 2 MG/ML 4 MG IV 05/18 2301 SYR) Allergies Coded Allergies: No Known Allergies (04/29/21) Review of Systems Constitutional: malaise. Denies: chills, fever. Skin: Denies: bruising, itching, rash, swelling. Allergy/Immun: Denies: itching, rhinorrhea. Eyes: Denies: visual loss/blurred, swelling. ENT: Denies: earache, sore throat. Respiratory: Denies: non productive cough, productive cough ( sputum), SOB. Cardiovascular: Denies: chest pain, palpitations. GI: Reports: abdominal pain, diarrhea, nausea, vomit ing. Denies: constipation, hematemesis, hematochezia. : Reports: flank pain (maybe), pelvic pain, . Denies: dysuria, hematuria, vaginal bleeding, vaginal discharge. Musculoskeletal: other (body aches). Denies: extremity pain, extr emity swelling, joint pain, lumbar pain. Heme: Denies: bleeding, bruising. Neuro: Denies: syncope, unable to speak, vision change. Psych: Denies: anxiety, depression, homicidal ideation, suicidal ideation. Objective General VS: Last Documented: Result Date Time B/P Mean 75.0 05/18 2228 Pulse Ox 100 05/18 2228 B/P 105/61 05/18 2228 Temp 99.0 05/18 2228 Pulse 104 05/18 2228 Resp 14 05/18 2228 Vital Signs Date Temp Pulse Resp B/P B/P Mean Pulse Ox FiO2 05/18 99.0 104 14 105/61 75.0 100 PATIENT WEIGHT: Weight (lb): 172 Weight (oz): Weight (kg): 78.200 Notes: WNWDFNAD, but then stated the pain was starting, maybe winced some, tear down cheek Physical Exam HEENT: normocephalic w/o injury, pupils equal, n o scleral icterus Cardiac: regular rate and rhythm Lungs: unlabored breathing Neuro: Exam: alert, oriented x3, normal speech, CNII-X II grossly intact, reflexes equal bilat DTR's (lower extr): normal 1-2+ Abdomen: soft, no guarding, no rebound tendernes s, tender in epigastric and possibly the right flank, minimally tender elswh ere Musculoskeletal: normal inspection Uterine activity: Monitor: toco Frequency (description): none FHR evaluation: Baseline: 140 bpm Variability: moderate 6-25 bpm Accelerations: 15 X 15 FHR category: category 1 Membranes: Membranes: Intact Lower extremities: Edema: none Calf tenderness: negative Results Findings/Data: Laboratory Tests: 05/18 2240 Urines Urine Color (YELLOW) ODETTE Urine Appearance (CLEAR) CLOUDY Urine pH (5 - 9) 5.0 Ur Specific [place] (1.001 - 1.035) 1.026 Urine Protein (NEG) 1+ H Urine Glucose (UA) (NEG) NEGATIVE Urine Ketones (NEG) NEGATIVE Urine Blood (NEG) 1+ H Urine Nitrite (NEG) NEG Urine Bilirubin (NEG) NEGATIVE Urine Urobilinogen (NEG mg/dL) 4.0 H Ur Leukocyte Esterase (NEG) NEG Urine RBC (NONE SEEN #/hpf) 21-30 H Urine WBC (NONE SEEN #/hpf) 6-10 H Ur Epithelial Cells (RARE - FEW #/HPF) MANY H Urine Bacteria (RARE - FEW /HPF) MODERATE H Urine Mucus (NONE SEEN) 4+ Microbiology: Date/Time Procedure - Status Source Growth 05/18 2321 Influenza Virus Type B Antigen - ORD NASOPHARG 05/18 2321 Influenza Virus Type A Antigen - ORD NASOPHARG Diagnosis, Assessment Plan Diagnosis, Assessment Plan Problem List/A P: 1. Abdominal pain 2. Nausea vomiting 3. Diarrhea 4. 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 Radha Valiente [facility] 08:54:15-00:00 Evgeny Lopez is a 22 year old female Pt returning nurse call. Please call [phone] (home) Electronically signed by Radha Bansal at 04/12 8:55 AM CDT 2023-05-07 Formatting of this note might be differe nt from the original. CITLALY Hurst [facility] 07:57:26-00:00 Pt is requesting to get TB t est, please call back [phone] (home) 2023-05-04 [facility] 09:54:28-00:00 Patient sent mychart message regarding results for UTI on 05/04/2023. Electronically signed by Nani Wright at 0 05/04/2023 9:55 AM CDT 2023-05-04 [facility] 08:33:22-00:00 Patient sent mychart message on 05/04/2023 regarding results for low hemoglobin and positive UTI. Electronically signed by Nani Wright at 0 05/04/2023 9:54 AM CDT 2023-05-01 [facility] 14:57:37-00:00 Attempt #2, patient did not answer and a voicemail was left for the patient Electronically signed by Nani Wright at 0 05/01/2023 2:58 PM T 2023-05-01 [facility] 13:55:17-00:00 Please let patient know urin e culture showed bacterial infection. Will treat with antibiotics X10 days and repeat urine culture at next visit. Rx sent to pharmacy on file. Increase fluid intake and reinforce good hygiene. Electronically signed by Logan Villalobos FNP a t 05/01/2023 1:58 PM T 2023-04-30 Formatting of this note might be differe nt from the original. Jd Salas [facility] 08:19:59-00:00 Attempt# 1 Followed up with patient via telephone call, no answer, voice mail left requesting call back. Electronically signed by Jd Salas at 8:20 AM T 2023-04-30 [facility] 08:07:59-00:00 Patient is anemic and needs to start iron daily in addition to her vitamin. Will send a prescription to her pharmacy, but if not covered by insurance, she can purchase and take over the counter ferrous sulfate 325mg daily . Take at a different time of day than vitamin. Thank you! Electronically signed by Logan Villalobos FNP a t 04/30/2023 8:08 AM [facility] 2021-05-21 [facility] 00:38:00-00:00 [facility] ([facility]) EMERGENCY PROVIDER REPORT REPORT#:[id number] REPORT STATUS: Signed DATE:05/21/21 TIME: 37 PATIENT: EVGENY LOPEZ UNIT #: [id number] ROOM/BED: AGE: 20 SEX: F PCP PHYS: No Primary or Family P hysician SERVICE AUTHOR: Linda Bañuelos MD * ALL edits or amendments must be made on the el [employer]ronic/computer document * HPI-Abd Pain F Under 40 General Initial Greet Date/Time 05/21/21 0033 Presentation Chief Complaint Abdominal pain Hx Obtained From Patient Onset Occurred One week ago Symptom Duration Since onset Location Abdomen upper Quality Cramping Radiation No: Does not radiate. Severity: Current Pain level 0 out of 10 Associated with Denies: Anorexia, Back pain, Chest pain, Chills, Constipation, Diarrhea, Dysuria , Fever, Hematemesis, Hematochezia, Hematuria, M joseph, Nausea, Shortness of breath, Urinary frequency, Urinary retention, Ur inary tract symptoms, Vaginal bleeding, Vaginal discharge, Vomiting. Context Related History Denies: Abdominal surgery, Adhesions, Alcohol ab use, Bariatric surgery, Bowel obstruction, Cholecystitis, Cholelithias is, Current , Diverticulosis, Dysmenorrhea, Endometriosis, GERD, Glaucoma, Hep atitis, Hiatal hernia, Hypercalciuria, Inflam bowel disease, Pancreatit is, Pelvic inflam disease, Peptic ulcer disease, Perito dulce dialysis, Renal failure, Tubo-ovarian abscess, Ureterolithiasis, Urinary tract infection, Uroli thiasis. Free Text HPI Notes Free Text HPI Notes Patient presents complaining of cramping abdomin al pain x 1 week. States that she had her menstrual cycle 1 week ago a nd is unsure why she continues to have abdominal pain. No other complaints Risk-Abd Pain F Under 40 )( Ectopic Risk factors reviewed Review of Systems ROS Statements All systems rev neg except as marked. Past Medical History - Adult Stated Complaint ABDOMINAL PAIN Allergies Coded Allergies: No Known Allergies (04/29/21) Home Medications Active Scripts IBUPROFEN (MOTRIN) 600 MG PO QID PRN PRN PAIN IBUPROFEN (MOTRIN) 600 MG PO QID PRN PRN PAIN # 30 TABS Prov: 04/29/21 NITROFURANTOIN/NITROFURAN MAC (MACROBID) 100 MG PO BID NITROFURANTOIN/NITROFURAN MAC (MACROBID) 100 MG PO BID #14 CAPS Prov: 05/04/21 Past Medical History: Reports: Anemia. Denies: Arthritis. Past Surgical History: Denies: Abdominal surgery. Smoking status: Smoking status for patients 13 years old or old er: Unknown,if ever smoked Physical Exam Vital Signs Vital Signs First Documented: Result Date Time Pulse Ox 98 05/21 31 Temp 97.4 05/21 31 Pulse 88 05/21 31 Resp 16 05/21 31 B/P 125/80 05/21 220 B/P Mean 95 05/21 220 O2 Delivery Room air 05/21 220 Last Documented: Result Date Time Pulse Ox 100 05/21 220 B/P 125/80 05/21 220 B/P Mean 95 05/21 220 O2 Delivery Room air 05/21 220 Temp 98.0 05/21 220 Pulse 82 05/21 220 Resp 18 05/21 220 Review of Vital Signs Reviewed Focused PE General/Const General/Const Awake, Alert, Well appearing MS Head Head Normocephalic Eyes Eyes PERRL Ears/Nose/Throat Ears/Nose/Throat Airway patent, Mucous membrane s moist, Pharynx NL Resp/Chest Respiratory/Chest Breath sounds NL, Breath soun ds = bilat, No respiratory distress, No rales, No rhonchi, No wheezing Cardiovascular Cardiovascular Heart rate NL, Regular rhythm, H eart sounds NL, Peripheral circulation NL Abdomen/GI Abdomen/GI Soft, Non-tender, McBurney's non-ten sindy, No guarding, No rebound, BS normoactive, No distention, No hernia, No pal pable mass MS Back Back Inspection NL, Non-tender, No CVA tenderne ss Skin Skin Color NL, Warm, Dry, Turgor NL Neurologic Neurologic Oriented X3, Speech NL, No motor def icits, No sensory deficits Interpretation Diagnostics Lab Results Interpretation Results Laboratory Tests 05/21/21 0111: [Embedded Image Not Available] Laboratory Tests: 05/211 0048 Chemistry Sodium (135 - 147 MMOL/L) 140 Potassium (3.6 - 5.2 MMOL/L) 3.7 Chloride (98 - 108 MMOL/L) 104 Carbon Dioxide (21 - 32 mmol/L) 29 BUN (6 - 21 MG/DL) 9 Creatinine (0.6 - 1.3 mg/dL) 0.8 Glomerular Filtr Rate (>60) 117 Glucose (70 - 110 mg/dL) 92 Calcium (8.7 - 10.5 mg/dL) 8.4 L Total Bilirubin (0.0 - 1.0 mg/dL) 0.20 AST (10 - 37 UNITS/L) 13 ALT (12 - 78 UNITS/L) 16 Total Alk Phosphatase (46 - 116 UNITS/L) 51 Total Protein (6.0 - 8.2 g/dL) 7.7 Albumin (3.7 - 5.5 G/DL) 3.6 L Lipase (73 - 393 UNITS/L) 122 Hematology WBC (5.0 - 12.0 x10 3/uL) 5.2 RBC (4.20 - 5.40 x10 6/uL) 3.80 L Hgb (12.0 - 16.0 g/dL) 9.8 L Hct (36.0 - 46.0 %) 32.1 L MCV (81 - 99 fL) 85 MCH (27 - 31 pg) 25.8 L MCHC (33 - 37 g/dL) 30.5 L RDW (11.5 - 15.5 %) 13.9 Plt Count (130 - 400 x10 3/uL) 326 MPV (9.4 - 16.4 fL) 10.0 Neut % (Auto) (43 - 65 %) 44.2 Lymph % (Auto) (20.5 - 45.5 %) 46.8 H [place] % (Auto) (5.5 - 11.7 %) 6.5 Eos % (Auto) (0.9 - 2.9 %) 1.9 Baso % (Auto) (0.2 - 1.0 %) 0.6 Neut # (Auto) (2.2 - 4.8 x10 3/uL) 2.32 Lymph # (Auto) (1.3 - 2.9 x10 3/uL) 2.45 [place] # (Auto) (0.3 - 0.8 x10 3/uL) 0.34 Eos # (Auto) (0.0 - 0.2 x10 3/uL) 0.10 Baso # (Auto) (0.0 - 0.1 x10 3/uL) 0.03 Immature Gran % (0.0 - 2.0 %) 0.0 Urines Urine Color (YELLOW) YELLOW Urine Appearance (CLEAR) CLEAR Urine pH (5.0 - 8.0) 7.0 Ur Specific [place] (1.000 - 1.030) 1.020 Urine Protein (NEGATIVE MG/DL) NEGATIVE Urine Glucose (UA) (NEGATIVE MG/DL) NEGATIVE Urine Ketones (NEGATIVE MG/DL) NEGATIVE Urine Blood (NEGATIVE) 1+ H Urine Nitrite (NEGATIVE) NEGATIVE Urine Bilirubin (NEGATIVE) NEGATIVE Urine Urobilinogen (<=1.0 EU/dL) 2.0 H Ur Leukocyte Esterase (NEGATIVE) NEGATIVE Urine RBC (0 - 3 /HPF) 3-5 H Urine WBC (0 - 3 /HPF) 0-3 Ur Epithelial Cells (NONE - FEW /LPF) FEW Urine Bacteria (NEGATIVE /HPF) 1+ H Urine Sperm (NONE SEEN) Present H Urine HCG, Qual (NEGATIVE) NEGATIVE Lab Statement Laboratory studies reviewed and considered in th e medical decision-making. Re-Evaluation MDM )( Re-Evaluation/Progress #1 Text/Dict Note Discussed results with patient. Will give her st omach medications and advised her to follow up with her PCP. Patient states he r anemia is chronic Time of Re-Eval 219 )( Re-Eval Status Unchanged Patient Discharge Departure Vital Signs/Condition Vital Signs First Documented: Result Date Time Pulse Ox 98 08/10 0031 Temp 97.4 08/10 0031 Pulse 88 08/10 0031 Resp 16 08/10 0031 B/P 125/80 08/10 0220 B/P Mean 95 08/10 0220 O2 Delivery Room air 08/10 0220 Last Documented: Result Date Time Pulse Ox 100 08/10 0220 B/P 125/80 08/10 0220 B/P Mean 95 08/10 0220 O2 Delivery Room air 08/10 0220 Temp 98.0 08/10 0220 Pulse 82 08/10 0220 Resp 18 08/10 0220 All vital signs available at the time of this en try have been reviewed. Condition Stable Clinical Impression Clinical Impression Primary Impression: Anemia Secondary Impressions: Abdominal pain Disposition Decision Discharge )( Discharged to Home Yes )( Time 022 )( Date 05/21/21 Discharge/Care Plan Counseled Regarding Diagnosis, Lab resul ts, Prescriptions, Need for follow-up, When to return to ED (Auto) Prescriptions Current Visit Scripts DICYCLOMINE (BENTYL) 20 MG PO QID PRN PRN abdomi nal pain DICYCLOMINE (BENTYL) 20 MG PO QID PRN PRN abdom inal pain #30 TABS FAMOTIDINE (PEPCID) 40 MG PO BEDTIME FAMOTIDINE (PEPCID) 40 MG PO BEDTIME #30 TABS Patient Instructions ED Abdominal Pain Unkn Caus e Fem, ED Anemia Type Not Specified Additional Instructions Please follow up with your primary care doctor i n 1-3 days Departure Forms WORK/SCHOOL EXCUSE VARIABLE Any Restrictions Off work/school 3 days Discharge Note I have spoken with the patie nt and/or caregivers. I have explained the patient's condition, diagnoses and mateo atment plan based on the information available to me at this time. I have answered the patient's and/ or caregiver's questions and addressed any concerns. The patient and/or careg radha have as good an understanding of the patient 's diagnosis, condition and treatment plan as can be expected at this point. The vital signs have bee n stable. The patient's condition is stable and appr opriate for discharge from the emergency department. The patient will pursue further outpatient evalu ation with the primary care physician or other designated or consulting phys deepa as outlined in the discharge instructions. The patient and/or caregivers are agreeable to this plan of care and follow-up instructions have been exp lained in detail. The patient and/or caregivers have received these instructio ns in written format and have expressed an understanding of the discharge inst ructions. The patient and/or caregivers are aware that any significant change in condition or worsening of symptoms should prompt an immediate return to [facility] or the closest emergency department or a call to 911. Electronically Signed by Linda Bañuelos MD on 05/23 at 0000 RPT #:[id number] END OF REPORT 2021-04-29 [facility] 23:38:00-00:00 [facility] ([facility]) EMERGENCY PROVIDER REPORT REPORT#:[id number] REPORT STATUS: Signed DATE:04/29/21 TIME:2337 PATIENT: EVGENY LOPEZ UNIT #: [id number] ROOM/BED: : 99 AGE: 20 SEX: F PCP PHYS: No Primar y or Family Physician SERVICE AUTHOR: Nadiya Tejada MD * ALL edits or amendments must be made on the el ectronic/computer document * HPI-Abd Pain F Under 40 Free Text HPI Notes Free Text HPI Notes 20yo AAF without significant PMH p/w abdominal w all pain. General Initial Greet Date/Time 04/29/212222 Presentation Chief Complaint Abdominal pain Risk-Abd Pain F Under 40 )( Ectopic Risk factors reviewed, No r isk factors Review of Systems ROS Statements All systems rev neg except as marked. Focused Review of Systems Constitutional Denies: Chills, Fever, Lethargy. Respiratory Denies: Cough, non-productive, Cough, productive , Shortness of breath. Cardiovascular Denies: Chest pain, Syncope. GI Reports: Abdominal pain. Denies: Nausea, Vomitin g. Female Denies: Dysuria, Flank pain, Pelvic pain. Musculoskeletal Denies: Back pain, Extremity pain. Past Medical History - Adult Stated Complaint ABDOMINAL PAIN X2 DAYS Allergies Coded Allergies: No Known Allergies (04/29/21) Smoking status: Smoking status for patients 13 years old or old er: Never Smoker Physical Exam Vital Signs Vital Signs First Documented: Result Date Time Pulse Ox 100 04/29 2259 B/P 139/74 04/29 2259 B/P Mean 95 04/29 2259 O2 Delivery Room air 04/29 2259 Temp 97.4 04/29 2259 Pulse 75 04/29 2259 Resp 16 04/29 2259 Last Documented: Result Date Time Temp 97.6 04/29 2350 Resp 16 04/29 2350 Pulse Ox 100 04/29 2259 B/P 139/74 04/29 2259 B/P Mean 95 04/29 2259 O2 Delivery Room air 04/29 225 Pulse 75 04/29 225 Review of Vital Signs Reviewed, Vital signs norm al Focused PE General/Const General/Const Awake, Alert, Well appearing MS Head Head Atraumatic, Normocephalic Eyes Eyes Atraumatic, PERRL, EOMI Ears/Nose/Throat Ears/Nose/Throat Airway patent, Mucous membrane s moist, Pharynx NL Resp/Chest Respiratory/Chest Breath sounds NL, Breath soun ds = bilat, No respiratory distress, No rales, No rhonchi, No wheezing Cardiovascular Cardiovascular Heart rate NL, Regular rhythm, H eart sounds NL, Peripheral circulation NL Abdomen/GI Abdomen/GI Soft, Non-tender, McBurney's non-ten sindy, No guarding, No rebound, BS normoactive, No distention, No hernia, No pal pable mass MS Back Back Inspection NL, Non-tender, No CVA tenderne ss Skin Skin Color NL, Warm, Dry, Turgor NL Genitourinary Female Genitourinary External genitalia NL, No bleeding, No discharge, No cervical motion tend, Os closed, No adnexal mass , No adnexal tenderness, No uterine enlargement, No uterine mass, No lesions or rash Rectum Rectum/Perineum Blood - occult heme neg, Qualit y control passed, No gross blood, No fissures, No hemorrhoids, Sphincter to ne NL Neurologic Neurologic Oriented X3, Speech NL, No motor def icits, No sensory deficits Interpretation Diagnostics Lab Results Interpretation Results Laboratory Tests: 04/29 2300 Urines Urine Color (YEL/STRAW discript) YELLOW Urine Appearance (CLEAR discript) CLOUDY H Urine pH (5.0 - 7.0 pH UNITS) 6.5 Ur Specific [place] (1.005 - 1.030 SG) 1.025 Urine Protein (NEG mg/dL) NEGATIVE Urine Glucose (UA) (NEG mg/dL) NEGATIVE Urine Ketones (NEG mg/dL) NEGATIVE Urine Blood (NEG mg/DL) NEGATIVE Urine Nitrite (NEG SCREEN) POSITIVE H Urine Bilirubin (NEG mg/dL) NEGATIVE Urine Urobilinogen (<2.0 mg/dL) 0.2 Ur Leukocyte Esterase (NEGATIVE Leuk/mcL) NEGA TIVE Urine RBC (0 - 3 #RBC/HPF) 0-1 Urine WBC (0 - 3 #WBC/HPF) 1-3 Ur Squamous Epith Cells (NONE /HPF) TRACE Urine Bacteria (NONE - TRACE /HPF) 4+ H Urine Culture Screen (Culture CHK Criteria) NO, WBC<10 Urine HCG, Qual (NEGATIVE) NEGATIVE Lab Statement Laboratory studies reviewed and considered in e medical decision-making. Re-Evaluation MDM Free Text MDM Notes Free Text MDM Notes A/P: 20yo AAF with PMH as above p/w abdominal wa ll pain. Will send UA. ADDENDUM Time: 2340 UA c/w UTI (4+ bacteria, (+) nitrites). Pt re-as sessed; symptoms improved. Results of work-up d/w Pt; v oiced understanding. Ok for DC home with PCP follow- up )( Re-Evaluation/Progress #1 )( Re-Eval Status Improved Plan Post Re-Eval Plan discharge Patient Discharge Departure Vital Signs/Condition Vital Signs First Documented: Result Date Time Pulse Ox 100 04/29 2259 B/P 139/74 04/29 2259 B/P Mean 95 04/29 2259 O2 Delivery Room air 04/29 2259 Temp 97.4 04/29 2259 Pulse 75 04/29 2259 Resp 04/29 Last Documented: Result Date Time Temp 97.6 04/29 2350 Resp 04/29 Pulse Ox 100 04/29 2259 B/P 139/74 04/29 2259 B/P Mean 95 04/29 2259 O2 Delivery Room air 04/29 2259 Pulse 75 04/29 2259 All vital signs available at the time of this en try have been reviewed. Clinical Impression Clinical Impression Primary Impression: Strain of abdominal wall Secondary Impressions: UTI (urinary tract infect ion) Disposition Decision Discharge )( Discharged to Home Yes )( Time 2339 )( Date 04/29/21 Discharge/Care Plan Counseled Regarding Diagnosi s, Prescriptions, Need for follow-up, When to return to ED (Auto) Prescriptions Current Visit Scripts IBUPROFEN (MOTRIN) 600 MG PO QID PRN PRN PAIN IBUPROFEN (MOTRIN) 600 MG PO QID PRN PRN PAIN # 30 TABS NITROFURANTOIN/NITROFURAN MAC (MACROBID) 100 MG PO BID NITROFURANTOIN/NITROFURAN MAC (MACROBID) 100 MG PO BID #14 CAPS Until finished. Take with food. Patient Instructions ED CYSTITIS Female Adult, E D Muscle Strain, Abdomen, Urinary Tract Infections in Women Referrals Julisa Sandoval MD Discharge Note I have spoken with the patie nt and/or caregivers. I have explained the patient's condition, diagnoses and mateo atment plan based on the information available to me at this time. I have answered the patient's and/ or caregiver's questions and addressed any concerns. The patient and/or careg radha have as good an understanding of the patient 's diagnosis, condition and treatment plan as can be expected at this point. The vital signs have bee n stable. The patient's condition is stable and appr opriate for discharge from the emergency department. The patient will pursue further outpatient evalu ation with the primary care physician or other designated or consulting phys ician as outlined in the discharge instructions. The patient and/or caregivers are agreeable to this plan of care and follow-up instructions have been exp lained in detail. The patient and/or caregivers have received these instructio ns in written format and have expressed an understanding of the discharge inst ructions. The patient and/or caregivers are aware that any significant change in condition or worsening of symptoms should prompt an immediate return to [facility] or the closest emergency department or a call to 911. at [id number] RPT #: [id number] END OF REPORT
[2023-06-10] MEDS ORDERED: ONDANSETRON 4 MG/2 ML VIAL ONE (23:16)
[2023-06-10] MEDS ORDERED: NA CHLORIDE 0.9% 1,000 ML ONE (23:16)
[2023-06-10 23:45] LABS: Absolute Lymphocytes (CBC) 2.7 K/uL (0.7-4.9); Hematocrit 27.1 % (36.0-45.0); Lymphocytes % 31.1 % (15.3-44.8); MCV 78.8 fL (80-100); MPV 8.2 fL (7.6-11.3); Platelets 270 thou/uL (152-406); Protime INR 1.05; RBC Red Blood Cell Count 3.44 M/uL (3.86-4.86)
[2023-06-10 23:47] LABS: Specific Gravity 1.016 (1.005-1.030)
[2023-06-10 23:48] LABS: Specific Gravity 1.016 (1.005-1.030); Urine Bacteria <20 /HPF (<20); Urine Bilirubin NEGATIVE (Negative); Urine Blood 1+ (Negative); Urine Clarity Extremely Turbid (Clear); Urine Color Yellow (Yellow); Urine Glucose NEGATIVE (Negative); Urine Mucus Slight /HPF (None Seen); Urine Protein TRACE (Negative); Urine RBC <5 /HPF (None Seen); Urine Urobilinogen 1+ (Normal); Urine pH 6.5 (5.0-7.0)
[2023-06-11] LABS: Barbiturates NEGATIVE (NEGATIVE); Benzodiazepines NEGATIVE (NEGATIVE); Cocaine NEGATIVE (NEGATIVE); METHAMPHETAM NEGATIVE (NEGATIVE); Methadone NEGATIVE (NEGATIVE); Opiates NEGATIVE (NEGATIVE); Phencyclidine NEGATIVE (NEGATIVE); THC Cannibis NEGATIVE (NEGATIVE)
[2023-06-11 00:03] LABS: ALT/SGPT 12 U/L (13-56); AST/SGOT 7 U/L (15-37); Albumin 2.5 g/dL (3.4-5.0); Alkaline Phosphatase 122 U/L (45-117); BUN Blood Urea Nitrogen 6 mg/dL (7-18); Bicarbonate 25 mEq/L (21-32); Bilirubin Total 0.3 mg/dL (0.2-1.0); Glomerular Filtration Rate 129 ml/min (=/>90); Glucose Level 105 mg/dL (74-106); Magnesium 1.7 mg/dL (1.6-2.4); NT PRO-BNP 10 pg/mL (<125); Potassium 3.3 mEq/L (3.5-5.1); Protein, Total 7.3 g/dL (6.4-8.2); SARS-CoV-2 Antigen Rapid Res Negative (Negative); Sodium Level 135 mEq/L (136-145); Troponin High Sensitivity 3.7 pg/mL (<58.9)
[2023-06-11 00:04] LABS: Bilirubin Direct < 0.1 mg/dL (0-0.2)
[2023-06-11 00:05] LABS: Bilirubin Indirect, Calculated ND mg/dL (0.2-0.8)
--- NOTE | 2023-06-11 01:33 | ER ---
Nurse's Notes [facility] Name: Drea Lopez Age: 22 yrs Sex: Female : 2000 Arrival Date: 06/10/2023 Time: 22:12 Bed 7 Private MD: Diagnosis: Dizziness and giddiness; with EGA 31 weeks, by sonogram, discomfort of , Presentation: 06/10 22:23 Chief complaint: Patient states: lightheaded with blurry vision episode today at work. lg3 lasted an hour or so, went away but its back now. new onset nausea and headache. this happened last week and i saw my doctor and they gave me meclizine but it hasn't worked. currently 31wks gestation. Coronavirus screen: Client denies travel out of the [place] in the last 14 days. Client presents with at least one sign or symptom that may indicate coronavirus-19. Standard/surgical mask placed on the client. Ebola Screen: Patient denies travel to an Ebola-affected area in the 21 days before illness onset. Initial Sepsis Screen: Does the patient meet any 2 criteria? No. Patient's initial sepsis screen is negative. Does the patient have a suspected source of infection? No. Patient's initial sepsis screen is negative. Risk Assessment: Do you want to hurt yourself or someone else? Patient reports no desire to harm self or others. Onset of symptoms was June 10, 2023. 22:23 Method Of Arrival: Ambulatory lg3 22:23 Acuity: MERLY 4 lg3 Triage Assessment: 22:27 General: Appears in no apparent distress. uncomfortable, Behavior is calm, cooperative. lg3 Pain: Complains of pain in head. EENT: No deficits noted. No signs and/or symptoms were reported regarding the EENT system. Neuro: No deficits noted. Dumont Agitation-Sedation Scale (RASS): 0 - Alert and Calm Level of Consciousness is awake, alert, obeys commands, Oriented to person, place, time, situation, Mat Making Machine Tender are equal bilaterally Gait is steady, Speech is normal, Reports dizziness, headache weakness. Cardiovascular: No deficits noted. Denies chest pain, shortness of breath, Capillary refill < 3 seconds Clubbing of nail beds is absent JVD is absent Patient's skin is warm and dry. Respiratory: No deficits noted. Airway is patent Respiratory effort is even, unlabored, Respiratory pattern is regular, symmetrical. GI: No deficits noted. Abdomen is round. : No deficits noted. No signs and/or symptoms were reported regarding the genitourinary system. Derm: No deficits noted. No signs and/or symptoms reported regarding the dermatologic system. Skin is intact, is healthy with good turgor, Skin is dry, Skin is normal, Skin temperature is warm. Musculoskeletal: No deficits noted. Circulation, motion, and sensation intact. Range of motion: intact in all extremities. LOAN CLOSER: 22:27 Full Term 3, Living 3 lg3 Historical: - Allergies: 22:27 No Known Allergies; lg3 - Home Meds: 22:27 Meclizine Oral [Active]; lg3 - PMHx: 22:27 Asthma; lg3 - PSHx: 22:27 section; lg3 - Immunization history:: Adult Immunizations up to date, Client reports receiving the 1st dose of the Covid vaccine. - Social history:: Smoking status: Patient denies any tobacco usage or history of. Patient/guardian denies using alcohol, street drugs. - Family history:: not pertinent. Screenin/31 01:48 [facility] ED Fall Risk Assessment (Adult) History of falling in the last 3 months, jw7 including since admission No falls in past 3 months (0 pts) Score/Fall Risk Level 0 - 2 = Low Risk. Abuse screen: Denies threats or abuse. Denies injuries from another. Nutritional screening: No deficits noted. Tuberculosis screening: No symptoms or risk factors identified. Assessment: 06/10 22:27 General: see triage assessment. jw7 23:14 Reassessment: Patient appears in no apparent distress at this time. No changes from jw7 previously documented assessment. Patient and/or family updated on plan of care and expected duration. Pain level reassessed. Patient is alert, oriented x 3, equal unlabored respirations, skin warm/dry/pink. 06/11 00:20 Reassessment: Patient appears in no apparent distress at this time. No changes from jw7 previously documented assessment. Patient and/or family updated on plan of care and expected duration. Pain level reassessed. Patient is alert, oriented x 3, equal unlabored respirations, skin warm/dry/pink. 01:26 Reassessment: Patient appears in no apparent distress at this time. No changes from [facility] previously documented assessment. Patient and/or family updated on plan of care and expected duration. Pain level reassessed. Patient is alert, oriented x 3, equal unlabored respirations, skin warm/dry/pink. Vital Signs: 06/10 22:23 BP 114 / 76; Pulse 72; Resp 16 S; Temp 98.1(O); Pulse Ox 100% on R/A; Weight 81.19 kg lg3 (R); Height 5 ft. 2 in. (R); 23:15 BP 107 / 66 LA Sitting (auto/reg); Pulse 72 MON; Resp 23 S; Pulse Ox 100% on R/A; jw7 06/11 00:00 BP 87 / 46; Pulse 65; Resp 16 S; Pulse Ox 100% on R/A; jw7 01:00 BP 87 / 74; Pulse 64; Resp 15 S; Pulse Ox 100% on R/A; jw7 06/10 22:23 Body Mass Index 32.74 (81.19 kg, 157.48 cm) lg3 ED Course: 06/10 22:16 Patient arrived in ED. ag3 22:21 Baldemar Sierra MD is Attending Physician. sp4 22:27 Triage completed. lg3 22:27 Arm band placed on right wrist. lg3 22:27 Patient has correct armband on for positive identification. Bed in low position. Call [facility] light in reach. Side rails up X2. 22:36 Dalton Westbrook, RN is Primary Nurse. bp 23:03 Inserted saline lock: 20 gauge in right antecubital area, using aseptic technique. rv1 Blood collected. 23:04 SARS RAPID Sent. rv1 23:04 Influenza Screen (a \T\ B) Sent. rv1 23:04 Basic Metabolic Panel Sent. rv1 23:04 CBC with Diff Sent. rv1 23:04 LFT's Sent. rv1 23:04 Magnesium Sent. rv1 23:04 NT PRO-BNP Sent. rv1 23:04 PT-INR Sent. rv1 23:04 Troponin HS Sent. rv1 23:04 Urine Drug Screen Sent. rv1 23:04 Urinalysis W/Microscopic Sent. rv1 23:04 Test, Urine Sent. rv1 23:58 US OB Limited In Process Unspecified. EDMS 06/11 01:48 Provided Education on: discharge instructions and medication. jw7 01:48 No provider procedures requiring assistance completed. IV discontinued, intact, jw7 bleeding controlled, No redness/swelling at site. Pressure dressing applied. Administered Medications: 06/10 23:13 Drug: NS 0.9% IV 1000 ml Route: IV; Rate: 150 ml/hr; Site: right antecubital; jw7 06/11 01:50 Follow up: Response: No adverse reaction; IV Status: Completed infusion; IV Intake: jw7 300ml 06/10 23:14 Drug: Ondansetron IVP 8 mg Route: IVP; Site: right antecubital; jw7 06/11 01:49 Follow up: Response: No adverse reaction jw7 Medication: 01:49 VIS not applicable for this client. jw7 Intake: 01:50 IV: 300ml; Total: 300ml. jw7 Outcome: 01:32 Discharge ordered by . sp4 01:48 Discharged to home ambulatory, with family. jw7 01:48 Condition: stable 01:48 Discharge instructions given to patient, Instructed on discharge instructions, follow up and referral plans. medication usage, Demonstrated understanding of instructions, follow-up care, medications, Prescriptions given X 1. 01:49 Patient left the ED. jw7 Signatures: Dispatcher [employer] EDSD Dalton Westbrook, RN Jamee Henson 3 Jaelyn Babcock RN RN 3 Angela Martínez RN RN jw7 Smitha Keating rv1 Baldemar Sierra MD MD sp4 Corrections: (The following items were deleted from the chart) 06/10 22:32 22:23 Chief complaint: Patient states: lightheartedness with blurry vision episode lg3 today at work but went away but its back now. new onset nausea and headache lg3 22:33 22:23 Chief complaint: Patient states: lightheaded with blurry vision episode today at lg3 work but went away but its back now. new onset nausea and headache. this happened last week and i saw my doctor and they gave me meclizine but it hasn't worked lg3 22:38 22:23 Chief complaint: Patient states: lightheaded with blurry vision episode today at lg3 work but went away but its back now. new onset nausea and headache. this happened last week and i saw my doctor and they gave me meclizine but it hasn't worked. currently 31wks gestation lg3 06/11 01:50 01:49 Response: No adverse reaction; IV Status: Completed infusion; IV Intake: 1000ml jw7 jw7 01:50 01:50 Response: No adverse reaction; IV Status: Completed infusion; IV Intake: 300ml [id number]
--- NOTE | 2023-06-11 01:33 | EDPHYS ---
Physician Documentation [facility] Name: Drea Lopez Age: 22 yrs Sex: Female : 2000 Arrival Date: 06/10/2023 Time: 22:12 Bed 7 Private MD: ED Physician Baldemar Sierra HPI: 06/10 22:22 This 22 yrs old Black Female presents to ER via Unassigned with complaints of sp4 Dizziness, Vision Problem. 22:34 This is 22-year-old female who is , at 31 weeks EGA, presents with 1 week of sp4 symptoms of nausea dizziness blurry vision. Feeling unwell overall. 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 Patient follows up with [facility] at [place] for care. 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 FURNACE SETTER: 22:27 Full Term 3, Living 3 lg3 Historical: - Allergies: 22:27 No Known Allergies; lg3 - Home Meds: 22:27 Meclizine Oral [Active]; lg3 - PMHx: 22:27 Asthma; lg3 - PSHx: 22:27 section; lg3 - Immunization history:: Adult Immunizations up to date, Client reports receiving the 1st dose of the Covid vaccine. - Social history:: Smoking status: Patient denies any tobacco usage or history of. Patient/guardian denies using alcohol, street drugs. - Family history:: not pertinent. ROS: 22:34 Constitutional: Negative for fever, chills, and weight loss, positive generalized sp4 weakness, dizziness, nausea. Also blurry vision Eyes: Negative for injury, pain, redness, and discharge, positive bilateral blurry vision ENT: Negative for injury, pain, and discharge. 22:34 All other systems are negative. Exam: 22:34 Constitutional: This is a well developed, well nourished patient who is awake, alert, sp4 and in no acute distress. Head/Face: Normocephalic, atraumatic. Eyes: Pupils equal round and reactive to light, extra-ocular motions intact. Lids and lashes normal. Conjunctiva and sclera are not injected. Cornea within normal limits. Periorbital areas with no swelling, redness, or edema. ENT: Nares patent. No nasal discharge, no septal abnormalities noted. Tympanic membranes are normal and external auditory canals are clear. Oropharynx with no redness, swelling, or masses, exudates, or evidence of obstruction, uvula midline. Mucous membranes moist. Neck: Trachea midline, no thyromegaly or masses palpated, and no cervical lymphadenopathy. Supple, full range of motion without nuchal rigidity, or vertebral point tenderness. Chest/axilla: Normal chest wall appearance and motion. Nontender with no deformity. No lesions are appreciated. Cardiovascular: Regular rate and rhythm with a normal S1 and S2. No gallops, murmurs, or rubs. Normal PMI, no JVD. No pulse deficits. Respiratory: Lungs have equal breath sounds bilaterally, clear to auscultation and percussion. No rales, rhonchi or wheezes noted. No increased work of breathing, no retractions or nasal flaring. Abdomen/GI: Soft, non-tender, with normal bowel sounds. No distension or tympany. No guarding or rebound. No evidence of tenderness throughout. Does have gravid abdomen and gravid uterus Back: No spinal tenderness. No costovertebral tenderness. Skin: Warm, dry with normal turgor. Normal color with no rashes, no lesions, and no evidence of cellulitis. MS/ Extremity: Pulses equal, no cyanosis. Neurovascular intact. Full, normal range of motion. Neuro: Awake and alert, GCS 15, oriented to person, place, time, and situation. Cranial nerves II-XII grossly intact. Motor strength 5/5 in all extremities. Sensory grossly intact. Psych: Awake, alert, with orientation to person, place and time. Behavior, mood, and affect are within normal limits 06/11 01:23 ECG was reviewed by the Attending Physician. EKG time 2256, normal sinus rhythm, rate sp4 73, normal EKG, normal intervals, no ectopy,, no ST elevation or depression Vital Signs: 06/10 22:23 BP 114 / 76; Pulse 72; Resp 16 S; Temp 98.1(O); Pulse Ox 100% on R/A; Weight 81.19 kg lg3 (R); Height 5 ft. 2 in. (R); 23:15 BP 107 / 66 LA Sitting (auto/reg); Pulse 72 MON; Resp 23 S; Pulse Ox 100% on R/A; jw7 06/11 00:00 BP 87 / 46; Pulse 65; Resp 16 S; Pulse Ox 100% on R/A; jw7 01:00 BP 87 / 74; Pulse 64; Resp 15 S; Pulse Ox 100% on R/A; jw7 06/10 22:23 Body Mass Index 32.74 (81.19 kg, 157.48 cm) lg3 MDM: 06/10 22:22 Patient medically screened. sp4 06/11 01:23 ED course: EXAM: US , Limited CLINICAL HISTORY: The patient is 22 years old sp4 and is Female; ABD CRAMPING, TECHNIQUE: Real-time limited ultrasound of the maternal uterus with image documentation. COMPARISON: No relevant prior studies available. FINDINGS: GESTATIONAL AGE: Gestational age is 29 weeks 2 days based on ultrasound composite. POSITION: A single intrauterine gestation is present. presentation is cephalic. HEART RATE: heart rate is 132 bpm. PLACENTA: The placenta is fundal in location. AMNIOTIC FLUID: JACQUELINE is 19.5 cm. IMPRESSION: Single IUP at 29 weeks 2 days with heart rate 132 bpm. No acute findings. . 01:24 Differential diagnosis: cardiac arrhythmia, generalized weakness, hyperventilation, sp4 hypovolemia, idiopathic dizziness, near-syncope, . Data reviewed: vital signs, nurses notes, old medical records, lab test result(s), EKG, radiologic studies, ultrasound. Consideration of Admission/Observation Escalation of care including admission/observation considered. ED course: EKG today is normal,, urinalysis positive for mild proteinuria, mild hypokalemia 3.3, mild anemia hemoglobin 9. Mild elevation of alkaline phosphatase 122, otherwise normal LFTs, mild hypoalbuminemia albumin 2.5, no signs of heart failure, normal magnesium, normal troponin, negative influenza, negative COVID,. ED course: Ultrasound revealed single IUP at 29 weeks 2 days gestation heart rate 132 bpm no other acute findings. Amniotic fluid is 19.5 cm JACQUELINE. 01:30 ED course: Patient is stable for discharge home. Will advise bedrest and possibly sp4 maternity leave from her job. 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 Zofran as needed for nausea. . 06/10 22:22 Order name: Test, Urine; Complete Time: :22 sp4 06/10 22:22 Order name: Urinalysis W/Microscopic; Complete Time: :06/10 22:22 Order name: Urine Drug Screen; Complete Time: :06/10 22:34 Order name: Basic Metabolic Panel; Complete Time: :06/10 22:34 Order name: CBC with Diff; Complete Time: :06/10 22:34 Order name: LFT's; Complete Time: :06/10 22:34 Order name: Magnesium; Complete Time: :06/10 22:34 Order name: NT PRO-BNP; Complete Time: :06/10 22:34 Order name: PT-INR; Complete Time: 06/10 22:34 Order name: Troponin HS; Complete Time: :06/10 22:37 Order name: Influenza Screen (a \T\ B); Complete Time: :06/10 22:37 Order name: SARS RAPID; Complete Time: 06/10 22:34 Order name: US OB Limited 06/10 22:34 Order name: EKG; Complete Time: 22:35 06/10 22:34 Order name: Cardiac monitoring; Complete Time: :06/10 22:34 Order name: EKG - Nurse/Tech; Complete Time: 23:06/10 22:34 Order name: IV Saline Lock; Complete Time: 23:06/10 22:34 Order name: Labs collected and sent; Complete Time: 23:06/10 22:34 Order name: O2 Per Protocol; Complete Time: 23:06/10 22:34 Order name: O2 Sat Monitoring; Complete Time: 23: EC:23 Rate is 73 beats/min. Rhythm is regular, Normal Sinus Rhythm. QRS Rector is Normal. OH sp4 interval is normal. QRS interval is normal. QT interval is normal. T waves are Normal. No ST changes noted. Clinical impression: Normal ECG. Interpreted by me. Administered Medications: 06/10 23:13 Drug: NS 0.9% IV 1000 ml Route: IV; Rate: 150 ml/hr; Site: right antecubital; jw7 06/11 01:50 Follow up: Response: No adverse reaction; IV Status: Completed infusion; IV Intake: jw7 300ml 06/10 23:14 Drug: Ondansetron IVP 8 mg Route: IVP; Site: right antecubital; jw7 06/11 01:49 Follow up: Response: No adverse reaction jw7 Disposition Summary: 06/11/23 01:32 Discharge Ordered Location: Home sp4 Problem: new sp4 Symptoms: have improved sp4 Condition: Stable sp4 Diagnosis - Dizziness and giddiness sp4 - with EGA 31 weeks, by sonogram, discomfort of , sp4 Followup: sp4 - With: Private Physician - When: 5 - 6 days - Reason: Recheck today's complaints Discharge Instructions: - Discharge Summary Sheet sp4 - and Anemia sp4 Forms: - Patient Portal Instructions sp4 - Leadership Thank You Letter sp4 Prescriptions: - ondansetron 4 mg Oral Tablet,disintegrating - take 1 tablet by ORAL route every 6 hours for 1 week PRN nausea; 30 tablet; sp4 Refills: 0, Product Selection Permitted Signatures: Dispatcher [employer] Jaelyn Quintero, RN RN lg3 Angela Martínez RN RN jw7 Baldemar Sierra MD MD sp4
[2023-06-11 02:15] VITALS: TEMP 98.1; O2SAT 100
[2023-06-11 03:02] VITALS: BP 87/74
--- NOTE | 2023-06-11 12:03 | EKG ---
Test Date: 2023-06-10 Test Time: 22:56:29 Business Objects: MEASUREMENT RESULTS: Intervals: Rate: 73 CO: 152 QRSD: 80 QT: 364 QTc: 401 [place]: P: 60 CO: 152 QRS: 7 T: 33 INTERPRETIVE STATEMENTS: Normal sinus rhythm Normal ECG No previous ECG available for comparison Electronically Signed On 06-11-23 12:02:28 CDT by Luis Duong
--- NOTE | 2023-06-11 17:10 | RAD REPORT ---
EXAM DESCRIPTION: US - OB Limited - 06/10/2023 11:56 pm CLINICAL HISTORY: The patient is 22 years old and is Female; ABD CRAMPING, TECHNIQUE: Real-time limited ultrasound of the maternal uterus with image documentation. COMPARISON: No relevant prior studies available. FINDINGS: GESTATIONAL AGE: Gestational age is 29 weeks 2 days based on ultrasound composite. POSITION: A single intrauterine gestation is present. presentation is cephalic. HEART RATE: heart rate is 132 bpm. PLACENTA: The placenta is fundal in location. AMNIOTIC FLUID: JACQUELINE is 19.5 cm. IMPRESSION: Single IUP at 29 weeks 2 days with heart rate 132 bpm. No acute findings. Electronically signed by: Mago Cheng MD 06/11/2023 12:12 AM CDT Due to temporary technical issues with the PACS/Fluency reporting system, reports are being signed by the in house radiologists without review as a courtesy to insure prompt reporting. The interpreting radiologist is fully responsible for the content of the report.
== END 2023-06-11 01:49 | disposition home or self-care (01) ==
LOC: ER 22:12
DX: O26.893 Other specified pregnancy related conditions, third trimester (principal); Z3A.31 31 weeks gestation of pregnancy; Z20.822 Contact with and (suspected) exposure to COVID-19
CPT/HCPCS: 96361; 93005; 85025; 81001; 80048; 36415; 83735; 81025; 85610; 80076; 84484; 83880; 80307; 87804 ×2; 76815; 96374; 99284; 87811; J2405; J7030